=== PATIENT | male | born 1940 | race Caucasian/White ===

== ENCOUNTER 2020-02-11 09:40 | Inpatient (IN) | payer MEDICARE, SELFPAY ==
[2020-02-11] VITALS (11 sets, daily range): BP systolic 120–146; BP diastolic 57–66; PULSE 80–101; RESP 18–22; TEMP 37.4–39.6; O2SAT 92–98; BMI 20.9
--- NOTE | ~2020-02-11 | CT_ITS ---
EXAMINATION: CT chest abdomen pelvis w con EXAM DATE: 02/11/2020 14:01 INDICATION: Increasing falls, generalized weakness. Abdomen pelvis, right hip pain. Pulmonary nodule. TECHNIQUE: Spiral CT of the chest, abdomen and pelvis was performed following intravenous injection o f 100 mL Omnipaque 350. Axial, coronal and sagittal images were reviewed. Coronal maximum intensity pixel images of chest reviewed. The dose-length product (DLP) for this examination was 667.64 mGy-c m. The exposure was tailored according to patient size (auto mA exposure control), and iterative rec onstruction (ASIR) was used as additional dose reduction technique. Correlation is made to Chest x-ra y, right hip, pelvic x-ray same date. FINDINGS: CHEST: There is 1.4 cm right upper lobe nodule, suspicious for primary lung cancer. Consider CT-guid ed biopsy. Study is limited due to patient motion. There are no pleural or pericardial effusions. Tracheobronchial tree is patent. There is no mediastinal, hilar or axillary lymphadenopathy. The re is no pneumothorax. Heart normal in size. There is moderate coronary arterial calcification, a rterial sclerosis. ABDOMEN PELVIS: There is a hypodensity in the left lower lobe measuring 1.2 cm cm consistent with a c yst. The spleen, pancreas, and adrenal glands are unremarkable. The gallbladder is distended but ot herwise unremarkable. There is no biliary duct dilation. Portal and splenic veins are patent. Kidn eys enhance symmetrically. There is no hydronephrosis. The prostate is unremarkable. The bladder is unremarkable. There is no retroperitoneal or pelvic lymphadenopathy. There is extensive scatter ed arterial sclerotic disease. There is large amount of colonic stool, and fecal impaction with the rectal vault measuring 10.7 x 8. 4 cm. The stomach and small bowel are unremarkable. No free intraperitoneal gas. There are old b ilateral pelvic rami fractures superiorly and inferiorly, with nonunion. There is an old left iliac c rest fracture. No acute fracture line is identified but certainly reinjury to the rami fractures is p ossible. There is moderate chronic compression fracture of the L1 vertebral body. IMPRESSION: 1. Left upper lobe 1.4 cm nodule, suspicious for primary lung cancer. Consider CT-guided biopsy. 2. 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 N o acute fracture line identified. 3. Fecal impaction, constipation. 4. Chronic L1 compression fracture. Reviewed, dictated and finalized at location B. IMPRESSION: 1. Left upper lobe 1.4 cm nodule, suspicious for primary lung cancer. Consider CT-guided biopsy. 2. 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 No acute fracture line identified. 3. Fecal impaction, constipation. 4. Chronic L1 compression fracture.
--- NOTE | ~2020-02-11 | XR_ITS ---
XR abdomen/kub 1V 02/18/2020 15:27 Indication: History of ulcerative colitis. Abdominal pain. Procedure: Supine view of the abdomen Comparison: No prior studies for comparison. Findings: There is fecal impaction of the colon. There are extensive atherosclerotic changes with armin nts in the iliac arteries bilaterally. No significant small bowel dilation. Bowel content obscures ev aluation for renal stones. There are fracture deformities of the pubic rami and the acetabulum bilate rally, likely subacute/chronic. Impression: 1: Fecal impaction of the colon. Reviewed, dictated and finalized at location A. Impression: 1: Fecal impaction of the colon.
--- NOTE | ~2020-02-11 | XR_ITS ---
EXAMINATION: XR chest 1V portable DATE: 02/11/2020 11:01 INDICATION: Weakness. Falls. TECHNIQUE: A single frontal view of the chest was obtained. COMPARISON: None. FINDINGS: There is mild scarring at the lung apices. There is a 1.5 cm nodule at the junction of righ t mid and upper lung zones. No pleural effusion or pneumothorax. The heart size is normal. Right para tracheal widening is noted. IMPRESSION: 1. 1.5 cm nodule in right lung suspicious for primary bronchogenic carcinoma. I discussed this resul t with Mendoza Weaver on 02/11/20 at 11:07 AM. 2. Right paratracheal widening, which may be mediastinal lymphadenopathy or tortuous brachiocephalic vessels. Reviewed, dictated and finalized at location A. IMPRESSION: 1. 1.5 cm nodule in right lung suspicious for primary bronchogenic carcinoma. I discussed this result with Mendoza Weaver on 02/11/20 at 11:07 AM. 2. Right paratracheal widening, which may be mediastinal lymphadenopathy or tor tuous brachiocephalic vessels.
--- NOTE | ~2020-02-11 | XR_ITS ---
EXAMINATION: XR hip RT 2V w AP pelvis EXAM DATE: 02/11/2020 11:39 INDICATION: Initial encounter following injury, with pain of the pelvis, right hip. Limited range of motion. TECHNIQUE: Right hip frontal, crosstable lateral projections for interpretation. Frontal projection p samantha. There is no prior study for comparison. FINDINGS: Exam is limited from osteopenia, overlying bowel gas. There are no acute pelvic or right hi p fractures or dislocations identified. Probable old bilateral inferior rami fractures. There is no s ubcutaneous gas. Bilateral iliac stents. Extensive arterial sclerotic disease. There are no radiopa que foreign bodies. IMPRESSION: 1. Limited exam. No acute fracture suspected. 2. Probable old inferior rami fractures. Reviewed, dictated and finalized at location B.
--- NOTE | ~2020-02-11 | XR_ITS ---
EXAMINATION: XR chest 1V portable EXAM DATE: 02/17/2020 06:55 INDICATION: Pneumonia. TECHNIQUE: Portable AP frontal chest x-ray was obtained. Comparison is made to prior examination from 02/11/2020. FINDINGS: Interval development of moderate amount of bilateral perihilar distribution acute airspace disease, pneumonia and/or edema. There is a right upper lobe pulmonary nodule suspicious for primary bronchogenic lung cancer. No pneumothorax or pleural effusion. Cardiomediastinal silhouette is normal . There is aortic arteriosclerosis. There are bony degenerative changes. IMPRESSION: 1. Right upper lobe pulmonary nodule suspicious for primary lung cancer. 2. Development of moderate amount of perihilar edema and/or pneumonia. Reviewed, dictated and finalized at location B.
--- NOTE | ~2020-02-11 | XR_ITS ---
EXAMINATION: XR barium swallow modified DATE: 02/12/2020 16:13 INDICATION: Aspiration pneumonia. TECHNIQUE: Modified barium esophagram was performed by myself to administered fluoroscopy, in conjun ction with speech pathologist who administered barium in varying consistencies as per speech patholog ist documentation. This was recorded on tape. A single fluoroscopic spot image was recorded. The DAP for this procedure was 2.453 Gycm2. Fluoroscopy exposure time was 4.6 minutes. FINDINGS: Oral stage: Adequate function. Pharyngeal phase: Adequate function. Laryngeal penetration: Present. Aspiration: None. Laryngeal sensitivity: Absent. IMPRESSION: Laryngeal penetration without definite aspiration identified. Please refer to speech pat hologist findings and specific feeding recommendations. Reviewed, dictated and finalized at location A. IMPRESSION: Laryngeal penetration without definite aspiration identified. Plea se refer to speech pathologist findings and specific feeding recommendations.
--- NOTE | ~2020-02-11 | XR_ITS ---
EXAMINATION: XR chest 1V portable DATE: 02/18/2020 15:27 INDICATION: Aspiration pneumonia. TECHNIQUE: A single frontal view of the chest was obtained. COMPARISON: Chest single view 02/17/2020, chest CT 02/11/2020 FINDINGS: There is mild scarring at the lung apices. There are mild airspace opacities in right mid a nd lower lung zones and left lower lung zone. There is a nodule in right upper lobe. No pleural effus ion or pneumothorax. The heart size is normal. IMPRESSION: 1. Airspace opacities in right mid and lower lung zones and left lower lung zone with overall improve ment but with worsening at left lung base, consistent with atelectasis versus pneumonia. 2. Right upper lobe nodule suspicious for primary bronchogenic carcinoma. Reviewed, dictated and finalized at location B. IMPRESSION: 1. Airspace opacities in right mid and lower lung zones and left lower lung zon e with overall improvement but with worsening at left lung base, consistent wit h atelectasis versus pneumonia. 2. Right upper lobe nodule suspicious for primary bronchogenic carcinoma.
--- NOTE | ~2020-02-11 | CT_ITS ---
EXAMINATION: CT brain wo con DATE: 02/11/2020 11:00 INDICATION: Weakness. TECHNIQUE: Computed tomography (CT) of the head was performed without intravenous contrast. The mA wa s adjusted according to patient size. Iterative reconstruction technique was employed. The dose-lengt h product was 1362.00 mGy-cm. COMPARISON: None FINDINGS: There are scattered areas of low attenuation in the cerebral white matter. There is no intr acranial hemorrhage, acute infarction, or abnormal intracranial mass lesion. The ventricles are ronald l in size. There is mild mucosal thickening in the ethmoid sinuses. The orbits are normal. The mastoi d air cells are normal. IMPRESSION: 1. Moderate nonspecific cerebral white matter disease, which likely represents chronic small vessel i schemic disease. Reviewed, dictated and finalized at location A. IMPRESSION: 1. Moderate nonspecific cerebral white matter disease, which likely represents chronic small vessel ischemic disease.
--- NOTE | 2020-02-11 10:18 | ECG_ITS ---
Measurements Intervals [place] Rate: 94 P: NE: 0 QRS: -1 QRSD: 90 T: 54 QT: 331 QTc: 415 Interpretive Statements SINUS RHYTHM FREQUENT ATRIAL PREMATURE COMPLEXES NONSPECIFIC ST & T-WAVE ABNORMALITY- INF/HIGH LAT LEADS BASELINE ARTIFACT- I, II, III, AVR, AVL, AVF, V1-V6 ABNORMAL ECG Electronically Signed On 02-11-2020 12:01:57 CDT by Teo Herrera D.O.
[2020-02-11 11:15] LABS: Basophils Absolute Auto 0.1 K/mm3 (0.0-0.1); Basophils Percent Auto 0.7 % (0.2-1.2); Eosinophils Absolute Auto 0.1 K/mm3 (0-0.3); Eosinophils Percent Auto 1.4 % (0-4.4); Hematocrit 34.9 % (42.0-52.0); Hemoglobin 11.7 g/dL (14.0-18.0); Immature Granulocyte Absolute 0.09 K/mm3 (0.00-0.031); Immature Granulocyte Percent A 0.9 % (0-0.5); Lymphocytes Absolute Auto 0.87 K/mm3 (0.9-3.2); Lymphocytes Percent Auto 8.6 % (18.3-44.2); Mean Corpuscular HGB Conc 33.5 g/dl (32-36); Mean Corpuscular Hemoglobin 29.9 pg (26-34); Mean Corpuscular Volume 89.3 fl (80-100); Mean Platelet Volume 8.6 fl (7.4-10.4); Monocytes Absolute Auto 1.2 K/mm3 (0.1-0.6); Monocytes Percent Auto 11.7 % (2.6-8.5); Neutrophils Absolute Auto 7.7 K/mm3 (1.3-6.7); Neutrophils Percent Auto 76.7 % (45.5-73.1); Platelet Count Result 277 k/mm3 (150-375); Red Blood Count 3.91 M/mm3 (4.6-6.20); Red Cell Distribution Width 13.4 % (11.5-14.5); White Blood Count 10.1 K/mm3 (4.5-10.0)
[2020-02-11 11:24] LABS: Add Urine Microscopic? YES; Appearance Urine Clear (Clear); Bilirubin Urine Negative (Negative); Blood Urine Negative (Negative); Color Urine Yellow (Yellow); Glucose Urine UA 1+ mg/dL (Negative); Ketones Urine Negative (Negative); Leukocyte Esterase Ur Negative LEU/UL (Negative); Mucus Urine Rare /lpf; Nitrate Urine Negative (Negative); Protein Urine Negative (Negative); RBC Urine 0-2 /hpf (0-2); Specific Grav Ur 1.024 (1.001-1.035); WBC Urine 0-3 /hpf
--- NOTE | 2020-02-11 11:26 | ED.GENADULT ---
HPI - General Adult General Chief complaint: Weakness <Mendoza Weaver PA-C - Last Filed: 02/11/20 14:03> Stated complaint: increase in falls/gen weakness <Mendoza Weaver PA-C - Last Filed: 02/11/20 14:03> Time Seen by Provider: 02/11/20 10:32 <Mendoza Weaver PA-C - Last Filed: 02/11/20 14:03> Source: patient and family <Mendoza Weaver PA-C - Last Filed: 02/11/20 14:03> Mode of arrival: EMS <Mendoza Weaver PA-C - Last Filed: 02/11/20 14:03> Limitations: no limitations <Mendoza Weaver PA-C - Last Filed: 02/11/20 14:03> History of Present Illness HPI narrative: Patient is a 79-year-old male who presents from assisted living for several falls over the last week numbering up to 6 patient has had his head struck in a few of the falls notes that he may have had syncope and loss of consciousness associated with some of the falls patient on arrival to emergency department with his daughter is denying any current pain patient is currently being treated for colitis and has had multiple liquid stools per day also has a history of dehydration and urinary tract infections on arrival patient notes weakness and fatigue but denies pain denies rectal bleeding or melena <Mendoza Weaver PA-C - Last Filed: 02/11/20 14:03> Related Data Allergies/adverse reactions: Allergies Allergy/AdvReac Type Severity Reaction Status Date / Time No Known Allergies Allergy Verified 02/11/20 12:54 <Mendoza Weaver PA-C - Last Filed: 02/11/20 14:03> Review of Systems Review of Systems: All systems reviewed & are unremarkable except as noted in HPI and below <Mendoza Weaver PA-C - Last Filed: 02/11/20 14:03> [facility] Past Medical History Medical History: Medical History Colitis Peripheral arterial disease Peripheral vascular disease <Mendoza Weaver PA-C - Last Filed: 02/11/20 14:03> Social History Social History: Social History (Updated 02/11/20 @ 11:29 by Mendoza Figueroa Young, PA-C) Smoking status: Former smoker <Mendoza Weaver PA-C - Last Filed: 02/11/20 14:03> Exam Narrative: Exam Narrative: GENERAL: Ill-appearing, well-nourished, and in no acute distress. HEAD: Normocephalic, atraumatic. EYES: PERRLA and EOMI. ENT: Nares clear, no rhinorrhea or epistaxis. Mucous membranes dry. Oropharynx without tonsillar hypertrophy exudate or other lesions. NECK: Supple. No adenopathy or masses. No carotid bruits or JVD CHEST: Clear to auscultation. No respiratory distress. No wheezes rales or rhonchi HEART: Regular rate and rhythm. No murmur heard. Normal peripheral pulses. ABDOMEN: Soft, nontender, nondistended, normal active bowel sounds. 2 firm areas 1 on each side of the lower abdomen consistent with heparin injection EXTREMITIES: Normal range of motion. No edema. Extremities palpated nontender to include the cervical thoracic and lumbar spine SKIN: Warm, dry, no rash. NEURO: No focal deficits. Alert and oriented person and reason for being in the emergency department, normal speech, neurovascularly intact, capillary refill less than 2 seconds. PSYCH: Normal mood and affect. <Mendoza Weaver PA-C - Last Filed: 02/11/20 14:03> Course GEOSPATIAL INFORMATION SCIENTIST/PA Physician Supervision Attestation for Mendoza Weaver at 1350. [id number] with the patient and his daughter for 15 minutes. The daughter is the patient's POA. The patient does not wake up or talk to me. His daughter says that yesterday they were able to make a [id number] telephone call with the primary care physician. She thought he was looking sickly. He lives at assisted living but has frequent falls. He did not have any particular complaints. He has a known lung mass which is supposed to be biopsied, but with COVID right they were unable to set that up. He had a heart attack some 30 years ago. She has a non-STEMI on his lab work. His potassium is low and he
[2020-02-11 11:32] LABS: Creatine Kinase 106 U/L (55-170)
[2020-02-11 11:50] LABS: Troponin I 0.036 ng/mL (0.000-0.034)
[2020-02-11 12:23] LABS: Lipase < 10 U/L (23-300)
[2020-02-11 12:37] LABS: Alanine Aminotransferase 20 U/L (4-50); Albumin Level 3.6 g/dL (3.5-5.1); Alkaline Phosphatase 74 U/L (38-126); Anion Gap 10 mmol/L (8-16); Aspartate Amino Transferase 28 U/L (17-59); Bilirubin,Total 0.8 mg/dL (0.2-1.3); Blood Urea Nitrogen 23 mg/dL (9-20); Calcium 8.3 mg/dL (8.4-10.2); Carbon Dioxide 29 mmol/L (22-30); Chloride 92 mmol/L (98-107); Estimated CRCL calculation 75 ml/min; Estimated Glomerular Filt Rate > 60; Glucose 61 mg/dL (75-110); Potassium 2.7 mmol/L (3.4-5.0); Sodium 131 mmol/L (137-145)
[2020-02-11 13:15] LABS: Magnesium 1.9 mg/dL (1.6-2.3); Phosphorus 2.9 mg/dL (2.5-4.5)
[2020-02-11 13:28] LABS: Troponin I 0.037 ng/mL (0.000-0.034)
--- NOTE | 2020-02-11 14:04 | PC.NURSE ---
Pt in CT scan via stretcher.
[2020-02-11] MEDS: SODIUM CHLORIDE 0.9% IV 1,000 ML 999 ML IV CONT (14:41)
--- NOTE | 2020-02-11 14:45 | PM.IMHP ---
H&P: HPI History of Present Illness Date/Time: 02/11/20 14:45 Chief complaint: ELEVATED TROPONIN,HYPOKALEMIA,FREQUENT FALLS Narrative: Mikey Yoo is a 79 year old male S from [facility]. The patient has become increasingly more confused. The daughter Jamila is at the bedside answering questions for the patient. 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 The patient does not have a history of dementia and has not been confused like this according to the daughter. The patient is reaching for things in the air. The patient has had several falls over the last week approximately 6 times. He did spike dry case had a few times. And he has had a syncope and loss of consciousness the. The patient is not complaining of any pain at this time. The patient has microscopic ulcerative colitis and has been seeing a specialist for this. He has several stools and has not been able to control his diarrhea. He has had multiple EGDs and colonoscopies. The patient is confused and weak. No rectal bleeding was noted at this time. Patient had a low-grade fever of 99.3. Patient has a known lung nodule. However the daughter did not want to follow-up on that at this point because he had to iliac stents and was placed on Plavix it would have to be off Plavix several days before they could get a lung biopsy. We had a long discussion about this in the daughter stated that she really does not want to get a biopsy of this as they will not want any further treatment. The daughter Jamila is the durable power health care attorney for healthcare. Patient's troponins were slightly elevated 0.036 and 0.037. Could possibly be from his falls. He isn't having complaints of chest pain. His potassium was found to be 2.7 and he is getting replacement. IV fluids were started. His sodium is 131. Chest x-ray was read as 1.5 cm nodule in the right lung suspicious for primary bronchogenic carcinoma her the daughter is aware and this has been there for quite some time and the power health care attorney does not want it worked up at at this time. He had a hip and pelvis x-ray which was read as limited exam to probable old inferior rami fractures of which the power health care attorney and stated that the patient did have pelvic fractures in the past. Fecal impaction coccygeal by from chronic L1 compression fracture. He was given IV fluids potassium and IV Tylenol in the emergency room. Patient remains confused. I spent approximately 1 hour with this patient and his power health care attorney. Date of service is 02/11/2020 Review of Systems Review of Systems: All systems reviewed & are unremarkable except as noted in HPI and below Constitutional: Constitutional: Reports as per HPI and Reports no additional constitutional complaints Eyes: Eyes: Reports as per HPI and Reports no additional eye complaints ENT: Reports system reviewed and no additional complaints, except as documented and Reports Normal hearing present Cardiovascular: Cardiovascular: Reports no additional cardiovascular complaints Respiratory: Respiratory: Reports no additional respiratory complaints and Reports no additional respiratory complaints Gastrointestinal: Gastrointestinal: Reports as per HPI and Reports no additional gastrointestinal complaints Musculoskeletal: Musculoskeletal: Reports no additional musculoskeletal complaints Integumentary/Breasts: Skin/Breast: Reports system reviewed and no additional complaints, except as docu and Reports as per HPI Neurologic: Reports system reviewed and no additional complaints, except as documented, Reports as per HPI and Reports Normal hearing present Psychiatric: Psychiatric: Reports no additional psychiatric complaints and Reports as per HPI Endocrine: Endocrine: Reports no additional endocrine complaints Hematologic/Lymphatic: Hematologic/Lymphatic: Reports no additional hematologic/lymphatic complaints Allergic/Immunologic: Allergic/Immunologic: Reports no additional allergic/immunologic complaints [facility]
[2020-02-11 15:06] LABS: Lactic Acid Reflex 1.4 mmol/L (0.7-2.1)
--- NOTE | 2020-02-11 16:31 | ADMGEN ---
This patient, Mikey Yoo, was admitted to Intensive Care Unit-2. Patient/family oriented to hospital policies and general routines including ID bracelet, bed and alarms, visiting hours, pain management, procedures, bathroom and other care routines, personal items, smoking policy, room service/diet, and visiting hours. Valuables list has been completed. Information on how to activate the Rapid Response Team has been discussed. Patient/Family are encouraged to report perceived risks to care and to ask questions if they do not understand what they are told or what they should do.
[2020-02-11 18:51] LABS: Troponin I 0.048 ng/mL (0.000-0.034)
[2020-02-11] MEDS: ACETAMINOPHEN 325 MG TABLET 650 MG PO (21:32)
--- NOTE | 2020-02-11 22:30 | PC.NURSE ---
Patient found to be incontinent of bowel and urine. Upon cleaning patient, he became combative and grabbed at my gown and face shield. Nela Ortega notified and new orders obtained
[2020-02-11] MEDS: HALOPERIDOL LACTATE 5 MG/ML VIAL IM (22:40)
[2020-02-11 22:48] LABS: Glucose Point of Care 126 (65-105)
[2020-02-11 22:48] LABS: Glucose Point of Care 162 (65-105)
[2020-02-11 23:24] LABS: SARS-CoV-2 RNA PCR Negative
[2020-02-12] VITALS (19 sets, daily range): BP systolic 104–143; BP diastolic 36–77; PULSE 83–109; RESP 16–24; TEMP 36.8–39.2; O2SAT 91–100
[2020-02-12 05:07] LABS: Basophils Percent Auto 0.4 % (0.2-1.2); Eosinophils Absolute Auto 0.2 K/mm3 (0-0.3); Eosinophils Percent Auto 1.9 % (0-4.4); Hematocrit 34.1 % (42.0-52.0); Hemoglobin 11.5 g/dL (14.0-18.0); Immature Granulocyte Absolute 0.07 K/mm3 (0.00-0.031); Immature Granulocyte Percent A 0.8 % (0-0.5); Lymphocytes Absolute Auto 0.47 K/mm3 (0.9-3.2); Mean Corpuscular HGB Conc 33.7 g/dl (32-36); Mean Corpuscular Hemoglobin 30.2 pg (26-34); Mean Corpuscular Volume 89.5 fl (80-100); Mean Platelet Volume 8.9 fl (7.4-10.4); Monocytes Absolute Auto 0.6 K/mm3 (0.1-0.6); Monocytes Percent Auto 6.4 % (2.6-8.5); Neutrophils Percent Auto 85.5 % (45.5-73.1); Platelet Count Result 241 k/mm3 (150-375); Red Blood Count 3.81 M/mm3 (4.6-6.20); Red Cell Distribution Width 13.4 % (11.5-14.5); White Blood Count 9.3 K/mm3 (4.5-10.0)
[2020-02-12 05:13] LABS: Alanine Aminotransferase 21 U/L (4-50); Albumin Level 3.1 g/dL (3.5-5.1); Alkaline Phosphatase 59 U/L (38-126); Anion Gap 5 mmol/L (8-16); Aspartate Amino Transferase 37 U/L (17-59); Bilirubin,Total 0.9 mg/dL (0.2-1.3); Blood Urea Nitrogen 20 mg/dL (9-20); Calcium 7.7 mg/dL (8.4-10.2); Carbon Dioxide 31 mmol/L (22-30); Chloride 93 mmol/L (98-107); Estimated CRCL calculation 86 ml/min; Estimated Glomerular Filt Rate > 60; Glucose 99 mg/dL (75-110); Sodium 129 mmol/L (137-145)
--- NOTE | 2020-02-12 06:31 | PC.NURSE ---
This patient, Mikey Yoo, was transferred to [facility] on 02/12/20 at 0631. Personal belongings sent with patient. Belongings list checked and signed with receiving Aminta GORE. Report given to Aminta GORE. Appropriate documentation sent with patient.
--- NOTE | 2020-02-12 07:09 | PC.NURSE ---
recieved pt from Leyla Dixon pt transfered approx 0630 02/12/20
[2020-02-12 08:22] LABS: Glucose Point of Care 106 (65-105)
[2020-02-12 12:12] LABS: Potassium 2.9 mmol/L (3.4-5.0)
--- NOTE | 2020-02-12 13:07 | PM.IMPN ---
Progress Note: A&P Assessment and Plan (1) Altered mental status: Code(s): R41.82 - Altered mental status, unspecified Status: Acute Assessment and Plan: we did a CT of the brain which did not show any stroke or anything abnormal except for some chronic moderate nonspecific cerebral white matter disease. Pt has had CT chest abdo and pelvis results are noted. (2) Elevated troponin: Code(s): R79.89 - Other specified abnormal findings of blood chemistry Status: Acute Assessment and Plan: Could be related to the falls there are low in level. This is not cardiac in nature. (3) Diabetes: Code(s): E11.9 - Type 2 diabetes mellitus without complications Status: Chronic Assessment and Plan: SSI We can check A1c. (4) Chronic ulcerative colitis: Code(s): K51.90 - Ulcerative colitis, unspecified, without complications Status: Chronic Assessment and Plan: Typically the patient has chronic diarrhea. (5) Urinary retention: Code(s): R33.9 - Retention of urine, unspecified Status: Acute Assessment and Plan: A Painter catheter has been placed. (6) Constipation: Code(s): K59.00 - Constipation, unspecified Status: Acute Assessment and Plan: Soapsuds enema has been ordered. (7) Lung mass: Code(s): R91.8 - Other nonspecific abnormal finding of lung field Status: Chronic Assessment and Plan: The patient has been made aware previously that he has a lung mass however he chose to have his iliac stents placed 1st and is on Plavix and would probably need to be off of his Plavix for couple days prior to having a biopsy or bronchoscopy. Pt is DNR status. Pt is running slight fever, COVID negative awaiting BC and UC full reports meanwhile will start IV ABX Subjective Date/time seen: 02/12/20 13:07 Interval history: 79 year old male S from [facility]. The patient has become increasingly more confused. Pt issues in the past is mainly diarrhea, pt does have a history of UC. Pt has been having more falls and has been more confused since in the past one week. Pt is running a fever, no cough. Has not been able to urinate and has been dizzy. Pt is negative for the covid virus. PT has had ct head, chest, abdo and pelvis. UA is negative pt has a painter catheter in situ. ? possible lung cancer. Na is low and potassium is low. Review of Systems Review of Systems: All systems reviewed & are unremarkable except as noted in HPI and below Exam Const: General: cooperative, no acute distress, well developed, alert, awake, Physically active and tired appearing Nutritional Appearance: average body habitus and well nourished Orientation/consciousness: oriented to person Limitations: no limitations Other: Pt is confused x3 Chest: Chest palpation & inspection: normal inspection of the chest Resp: Effort & Inspection: normal respiratory effort Auscultation: clear to auscultation bilaterally Percussion: percussion normal Cardio: Palpation: normal PMI Rate: regular rate Rhythm: regular rhythm Heart sounds: S1 normal heart sound present and S2 normal heart sound present Peripheral pulses: Peripheral pulses 2+ throughout Back/Spine/Pelvis: Back: no CVA tenderness Cervical Spine: cervical ROM normal Thoracic/Lumbar Spine: thoracic and lumbar spine normal to inspection Pelvis: no pain with anterior-posterior compression Skin: General skin exam: normal color Lesions: no lesions Rashes: no rashes Trauma: no lacerations or abrasions Wounds: no wounds Hair: normal Nails: normal Neuro: General: oriented to person Cranial nerves: Yes Equal, round and reactive pupils present and Yes hard of hearing Cognition (Neuro): normal cognition Speech: normal speech Sensory Exam: normal sensation Extrem: General: normal to inspection Right upper extremity: normal to inspection Left upper extremity: normal to
[2020-02-12 13:08] LABS: Glucose Point of Care 197 (65-105)
[2020-02-12 17:05] LABS: Glucose Point of Care 199 (65-105)
[2020-02-12] MEDS: KCL 20MEQ/0.9% SOD CHL 1,000 ML 100 ML IV CONT (18:21)
[2020-02-12 20:53] LABS: Glucose Point of Care 242 (65-105)
[2020-02-12] MEDS: ATORVASTATIN 40 MG TABLET BY MOUTH (22:33)
[2020-02-13] VITALS (11 sets, daily range): BP systolic 130–154; BP diastolic 59–72; PULSE 82–96; RESP 14–20; TEMP 36.2–36.8; O2SAT 91–97; BMI 21.1
[2020-02-13 05:31] LABS: Hematocrit 33.6 % (42.0-52.0); Hemoglobin 11.3 g/dL (14.0-18.0); Mean Corpuscular HGB Conc 33.6 g/dl (32-36); Mean Corpuscular Hemoglobin 29.4 pg (26-34); Mean Corpuscular Volume 87.5 fl (80-100); Mean Platelet Volume 9.1 fl (7.4-10.4); Platelet Count Result 220 k/mm3 (150-375); Red Blood Count 3.84 M/mm3 (4.6-6.20); Red Cell Distribution Width 13.4 % (11.5-14.5); White Blood Count 6.4 K/mm3 (4.5-10.0)
[2020-02-13 05:41] LABS: Anion Gap 9 mmol/L (8-16); Blood Urea Nitrogen 20 mg/dL (9-20); Calcium 7.4 mg/dL (8.4-10.2); Carbon Dioxide 26 mmol/L (22-30); Chloride 94 mmol/L (98-107); Estimated CRCL calculation 86 ml/min; Estimated Glomerular Filt Rate > 60; Glucose 238 mg/dL (75-110); Sodium 129 mmol/L (137-145)
[2020-02-13] MEDS: KCL 20MEQ/0.9% SOD CHL 1,000 ML 100 ML IV CONT ×2 (05:52→17:13)
[2020-02-13 07:56] LABS: Glucose Point of Care 272 (65-105)
[2020-02-13] MEDS: ASPIRIN 81 MG CHEWABLE TABLET PO (10:20)
[2020-02-13] MEDS: MULTIVITAMINS /C LUTEIN (CENTRUM SILVER) TABLET *BKC 1 TAB BY MOUTH (10:20)
[2020-02-13] MEDS: BUDESONIDE 3 MG CAP.SR.24H BY MOUTH ×3 (10:20→17:09)
[2020-02-13] MEDS: CHLORTHALIDONE 12.5 MG TAB BY MOUTH (10:20)
[2020-02-13] MEDS: INSULIN ASPART (*BKC) 100 UNITS/ML SUB-Q ×2 (10:21→12:32)
[2020-02-13 11:56] LABS: Glucose Point of Care 256 (65-105)
--- NOTE | 2020-02-13 12:28 | PM.IMPN ---
Progress Note: A&P Assessment and Plan (1) Altered mental status: Code(s): R41.82 - Altered mental status, unspecified Status: Resolved Assessment and Plan: Pt is running slight fever, COVID negative awaiting BC and UC full reports meanwhile will start IV zosyn and vancomycin. HIgh risk of aspiration pneumonia with a lung mass. 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 Pt has had CT chest abdo and pelvis results are noted. Pt on nectar thickened liquids. UC is negative awaiting BC. RPT swallow and DC soon. (2) Elevated troponin: Code(s): R79.89 - Other specified abnormal findings of blood chemistry Status: Acute Assessment and Plan: Could be related to the falls there are low in level. This is not cardiac in nature. (3) Diabetes: Code(s): E11.9 - Type 2 diabetes mellitus without complications Status: Chronic Assessment and Plan: SSI We can check A1c. (4) Chronic ulcerative colitis: Code(s): K51.90 - Ulcerative colitis, unspecified, without complications Status: Chronic Assessment and Plan: Typically the patient has chronic diarrhea. (5) Urinary retention: Code(s): R33.9 - Retention of urine, unspecified Status: Acute Assessment and Plan: A Painter catheter has been placed. (6) Constipation: Code(s): K59.00 - Constipation, unspecified Status: Acute Assessment and Plan: Soapsuds enema has been ordered. (7) Lung mass: Code(s): R91.8 - Other nonspecific abnormal finding of lung field Status: Chronic Assessment and Plan: The patient has been made aware previously that he has a lung mass however he chose to have his iliac stents placed 1st and is on Plavix and would probably need to be off of his Plavix for couple days prior to having a biopsy or bronchoscopy. Pt is DNR status. Subjective Date/time seen: 02/13/20 12:28 Interval history: 79 [address] old male from [facility]. The patient has become increasingly more confused. Pt issues in the past is mainly diarrhea, pt does have a history of UC. Pt has been having more falls and has been more confused one week. Pt is running a fever, no cough. Has not been able to urinate and has been dizzy. Pt is negative for the covid virus. PT has had ct head, chest, abdo and pelvis. UA is negative pt has a painter catheter in situ. ? possible lung cancer. Na is low and potassium is low. Pt is doing much better today after starting IV abx. Medical stable to transfer out of IMU. Review of Systems Review of Systems: All systems reviewed & are unremarkable except as noted in HPI and below ROS unobtainable: Yes other (Not dizzy not confused ) Respiratory: Respiratory: Reports chest congestion, Denies cough, Denies excessive phlegm production, Denies dyspnea and Denies wheezing Exam Const: General: no acute distress, alert and awake Orientation/consciousness: oriented to person Limitations: no limitations HENMT: Head: normal to inspection Neck: Neck: normal visual inspection, full ROM, no lymphadenopathy, trachea midline and supple Thyroid: thyroid normal Carotids: normal carotid upstroke Lymphatic: no lymphadenopathy noted Chest: Chest palpation & inspection: normal inspection of the chest Resp: Effort & Inspection: normal respiratory effort Auscultation: clear to auscultation bilaterally Percussion: percussion normal Cardio: Palpation: normal PMI Rate: regular rate Rhythm: regular rhythm Heart sounds: S1 normal heart sound present and S2 normal heart sound present GI: Auscultation: normal bowel sounds Skin: Lesions: no lesions Rashes: no rashes Trauma: no lacerations or abrasions Wounds: no wounds Hair: normal Nails: normal Neuro: Cognition (Neuro): normal cognition Speech: normal speech Sensory
[2020-02-13] MEDS: KCL 20 MEQ/SW 100 ML 100 ML 50 MEQ IVPB (12:31)
--- NOTE | 2020-02-13 13:20 | PC.NURSE ---
This patient, Mikey Yoo, was transferred to [[id number]] on 02/13/20 at 1320. Personal belongings sent with patient. Belongings list checked and signed with receiving [ ]. Report given to [IRINA GORE]. Appropriate documentation sent with patient.
[2020-02-13 16:56] LABS: Glucose Point of Care 175 (65-105)
[2020-02-13] MEDS: FAMOTIDINE 20 MG TABLET 40 MG BY MOUTH (19:57)
[2020-02-13] MEDS: ATORVASTATIN 40 MG TABLET BY MOUTH (19:57)
[2020-02-13 22:44] LABS: Glucose Point of Care 341 (65-105)
[2020-02-13 22:46] LABS: Glucose Point of Care 413 (65-105)
[2020-02-13] MEDS: INSULIN ASPART (*BKC) 100 UNITS/ML 8 UNITS SUB-Q (23:00)
[2020-02-13] MEDS: INSULIN GLARGINE (*BKC) 100 UNITS/ML 18 UNITS SUB-Q (23:00)
[2020-02-14] VITALS: BP 140/69; PULSE 84; RESP 16; TEMP 36.8; O2SAT 98
[2020-02-14 01:05] LABS: Glucose Point of Care 352 (65-105)
[2020-02-14 01:45] LABS: Vancomycin Trough 11.8 ug/mL (10.0-20.0)
[2020-02-14 03:56] LABS: Glucose Point of Care 298 (65-105)
[2020-02-14] MEDS: KCL 20MEQ/0.9% SOD CHL 1,000 ML 100 ML IV CONT (04:21)
[2020-02-14 05:32] VITALS: BP 150/76; PULSE 76; RESP 16; TEMP 36.2; O2SAT 96
[2020-02-14 07:49] LABS: Glucose Point of Care 210 (65-105)
[2020-02-14] MEDS: INSULIN ASPART (*BKC) 100 UNITS/ML SUB-Q (08:59)
[2020-02-14] MEDS: BUDESONIDE 3 MG CAP.SR.24H BY MOUTH (09:01)
[2020-02-14] MEDS: CHLORTHALIDONE 12.5 MG TAB BY MOUTH (09:01)
[2020-02-14] MEDS: MULTIVITAMINS /C LUTEIN (CENTRUM SILVER) TABLET *BKC 1 TAB BY MOUTH (09:01)
[2020-02-14] MEDS: ASPIRIN 81 MG CHEWABLE TABLET PO (09:01)
--- NOTE | 2020-02-14 11:56 | PM.IMPN ---
Progress Note: A&P Assessment and Plan (1) Altered mental status: Code(s): R41.82 - Altered mental status, unspecified Status: Resolved Assessment and Plan: Pt is running slight fever, COVID negative awaiting BC full reports meanwhile will start IV zosyn and vancomycin. High risk of aspiration pneumonia with a lung mass. 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 Pt has had CT chest abdo and pelvis results are noted. Pt on nectar thickened liquids and Minced and moist diet. UC is negative awaiting BC. Pt can advance to regular food gradually as per speech therapist. (2) Elevated troponin: Code(s): R79.89 - Other specified abnormal findings of blood chemistry Status: Acute Assessment and Plan: Could be related to the falls there are low in level. This is not cardiac in nature. (3) Diabetes: Code(s): E11.9 - Type 2 diabetes mellitus without complications Status: Chronic Assessment and Plan: SSI We can check A1c. (4) Chronic ulcerative colitis: Code(s): K51.90 - Ulcerative colitis, unspecified, without complications Status: Chronic Assessment and Plan: Typically the patient has chronic diarrhea. (5) Urinary retention: Code(s): R33.9 - Retention of urine, unspecified Status: Acute Assessment and Plan: A Painter catheter has been placed. Will remove today UC is negative. (6) Constipation: Code(s): K59.00 - Constipation, unspecified Status: Acute Assessment and Plan: Soapsuds enema has been ordered. (7) Lung mass: Code(s): R91.8 - Other nonspecific abnormal finding of lung field Status: Chronic Assessment and Plan: The patient has been made aware previously that he has a lung mass however he chose to have his iliac stents placed 1st and is on Plavix. Pt can not had biopsy or bronchoscopy yet. Pt is DNR status. (8) Aspiration into lower respiratory tract: Code(s): T17.800A - Unspecified foreign body in other parts of respiratory tract causing asphyxiation, initial encounter Status: Acute Assessment and Plan: Pt treated for possible aspiration pneumonia doing well on IV abx on discharge will need follow up with pulmology and biopsy or bronchoscopy once infection is cleared. (9) Acute hypokalemia: Code(s): E87.6 - Hypokalemia Status: Acute Assessment and Plan: Pt had potassium rider pt to have potassium supplements today eating better today 80% as per nurse Subjective Date/time seen: 02/14/20 11:56 Interval history: 79 year old male from [facility]. The patient was confused on admission. Pt issues in the past is mainly diarrhea, pt does have a history of UC. Pt has been having more falls and has been more confused one week. Pt is running a fever, no cough. Has not been able to urinate and has been dizzy. Pt is negative for the covid virus. PT has had ct head, chest, abdo and pelvis. UA is negative pt has a painter catheter in situ. CT chest shows? possible lung cancer. Na is low and potassium is low. Pt is doing much better today after starting IV abx. Holding conversation smiling today. Review of Systems Review of Systems: All systems reviewed & are unremarkable except as noted in HPI and below Exam Const: General: no acute distress, alert and awake Nutritional Appearance: average body habitus and well nourished Orientation/consciousness: oriented to person Limitations: no limitations Other: Disoriented x2 history of dementia Chest: Chest palpation & inspection: normal inspection of the chest Resp: Effort & Inspection: normal respiratory effort Auscultation: clear to auscultation bilaterally Percussion: percussion normal Cardio: Palpation: normal PMI Rate: regular rate Rhythm: regular rhythm Heart s
[2020-02-14 12:02] LABS: Glucose Point of Care 148 (65-105)
[2020-02-14] MEDS: MESALAMINE 400 MG DELAYED RELEASE CAPSULE 800 MG PO ×2 (13:14→16:43)
--- NOTE | 2020-02-14 14:18 | PCOTNOTE ---
Attempted OT treatment, Pt reports I just want to sleep Will attempt at later time. RN notified
[2020-02-14 14:32] VITALS: BP 145/79; PULSE 79; RESP 16; TEMP 36.6; O2SAT 96
[2020-02-14 16:40] LABS: Glucose Point of Care 120 (65-105)
[2020-02-14] MEDS: POTASSIUM CHLORIDE 20 MEQ PACKET (FOR LIQUID) PO (16:43)
[2020-02-14] MEDS: FAMOTIDINE 20 MG TABLET 40 MG BY MOUTH (20:38)
[2020-02-14] MEDS: ATORVASTATIN 40 MG TABLET BY MOUTH (20:40)
[2020-02-14] MEDS: INSULIN GLARGINE (*BKC) 100 UNITS/ML 18 UNITS SUB-Q (20:41)
[2020-02-14 21:02] LABS: Glucose Point of Care 204 (65-105)
[2020-02-14 21:21] VITALS: BP 150/70; PULSE 60; RESP 20; TEMP 36.1; O2SAT 92
[2020-02-15 06:00] VITALS: BP 139/72; PULSE 77; RESP 20; TEMP 36.6; O2SAT 96
[2020-02-15 06:31] LABS: Hematocrit 31.6 % (42.0-52.0); Hemoglobin 10.7 g/dL (14.0-18.0); Mean Corpuscular HGB Conc 33.9 g/dl (32-36); Mean Corpuscular Hemoglobin 29.6 pg (26-34); Mean Corpuscular Volume 87.3 fl (80-100); Mean Platelet Volume 9.2 fl (7.4-10.4); Platelet Count Result 243 k/mm3 (150-375); Red Blood Count 3.62 M/mm3 (4.6-6.20); Red Cell Distribution Width 13.4 % (11.5-14.5); White Blood Count 8.2 K/mm3 (4.5-10.0)
[2020-02-15 07:09] LABS: Anion Gap 6 mmol/L (8-16); Blood Urea Nitrogen 16 mg/dL (9-20); Calcium 7.7 mg/dL (8.4-10.2); Carbon Dioxide 28 mmol/L (22-30); Chloride 98 mmol/L (98-107); Estimated CRCL calculation 106 ml/min; Estimated Glomerular Filt Rate > 60; Glucose 108 mg/dL (75-110); Potassium 2.8 mmol/L (3.4-5.0); Sodium 132 mmol/L (137-145)
[2020-02-15 08:00] VITALS: PULSE 80; RESP 16; O2SAT 98
[2020-02-15] MEDS: POTASSIUM CHLORIDE 20 MEQ PACKET (FOR LIQUID) 40 MEQ PO ×3 (08:05→16:37)
[2020-02-15] MEDS: MESALAMINE 400 MG DELAYED RELEASE CAPSULE 800 MG PO ×3 (08:16→16:37)
[2020-02-15] MEDS: ASPIRIN 81 MG CHEWABLE TABLET PO (08:17)
[2020-02-15] MEDS: MULTIVITAMINS /C LUTEIN (CENTRUM SILVER) TABLET *BKC 1 TAB BY MOUTH (08:17)
[2020-02-15 09:36] LABS: Glucose Point of Care 54 (65-105)
[2020-02-15 09:36] LABS: Glucose Point of Care 62 (65-105)
[2020-02-15 09:36] LABS: Glucose Point of Care 58 (65-105)
[2020-02-15 09:36] LABS: Glucose Point of Care 64 (65-105)
[2020-02-15 09:36] LABS: Glucose Point of Care 86 (65-105)
--- NOTE | 2020-02-15 11:36 | P.PNIM_ITS ---
Progress Note: A&P Assessment and Plan (1) Aspiration into lower respiratory tract: Qualifiers: Encounter type: subsequent encounter Qualified Code(s): T17.800D - Unspecified foreign body in other parts of respiratory tract causing asph yxiation, subsequent encounter Code(s): T17.800A - Unspecified foreign body in other parts of respiratory tract causing asphyxiation, initial encounter Status: Acute Assessment and Plan: * Continue Zosyn * 02/14 stop vancomycin * Continue PT/OT * Continue soft, bite-sized foods with thickened liquids (2) Altered mental status: Qualifiers: Altered mental status type: disorientation Qualified Code(s): R41.0 - Disorientation, unspecified Code(s): R41.82 - Altered mental status, unspecified Status: Resolved Assessment and Plan: * Now afebrile * Suspected due to metabolic encephalopathy realted to aspiration * Seems to be improving, but continues to wax and wane (3) Elevated troponin: Code(s): R79.89 - Other specified abnormal findings of blood chemistry Status: Acute Assessment and Plan: * Likely related to the falls, not cardiac (4) Diabetes: Qualifiers: Diabetes mellitus type: type 2 Diabetes mellitus custodial insulin use: with custodial use Diabetes mellitus complication status: with kidney complications Diabetes mellitus complication detail: with chronic kidney disease Chronic kidney disease stage: stage 3 (moderate) Qualified Code(s): E11.22 - Type 2 diabetes mellitus with diabetic chronic kidney disease; N18.3 - Chronic kidney disease, stage 3 (moderate); Z79.4 - half-way (current) use of insulin Code(s): E11.9 - Type 2 diabetes mellitus without complications Status: Chronic Assessment and Plan: * Continue SSI (5) Chronic ulcerative colitis: Qualifiers: Ulcerative colitis location: unspecified ulcerative colitis location Digestive disease complication type: without complication Qualified Code(s): K51.90 - Ulcerative colitis, unspecified, without complications Code(s): K51.90 - Ulcerative colitis, unspecified, without complications Status: Chronic Assessment and Plan: * Stable (6) Urinary retention: Code(s): R33.9 - Retention of urine, unspecified Status: Acute Assessment and Plan: * Resolved (7) Constipation: Qualifiers: Constipation type: unspecified constipation type Qualified Code(s): K59.00 - Constipation, unspecified Code(s): K59.00 - Constipation, unspecified Status: Acute Assessment and Plan: * Dueto fecal impaction * Resolved (8) Lung mass: Code(s): R91.8 - Other nonspecific abnormal finding of lung field Status: Chronic Assessment and Plan: * 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 Denied pain. Less confused. Daughter at bedside. No change in chronic diarrhea. No bleeding. Review of Systems Review of Systems: All systems reviewed & are unremarkable except as noted in HPI and below Exam Narrative: Exam Narrative: HEENT: EOMI, PERRL, sclerae nonicteric, pharyngeal mucosa pink and intact
--- NOTE | 2020-02-15 11:36 | PM.IMPN ---
Progress Note: A&P Assessment and Plan (1) Aspiration into lower respiratory tract: Qualifiers: Encounter type: subsequent encounter Qualified Code(s): T17.800D - Unspecified foreign body in other parts of respiratory tract causing asphyxiation, subsequent encounter Code(s): T17.800A - Unspecified foreign body in other parts of respiratory tract causing asphyxiation, initial encounter Status: Acute Assessment and Plan: Continue Zosyn 02/14 stop vancomycin Continue PT/OT Continue soft, bite-sized foods with thickened liquids (2) Altered mental status: Qualifiers: Altered mental status type: disorientation Qualified Code(s): R41.0 - Disorientation, unspecified Code(s): R41.82 - Altered mental status, unspecified Status: Resolved Assessment and Plan: Now afebrile Suspected due to metabolic encephalopathy realted to aspiration Seems to be improving, but continues to wax and wane (3) Elevated troponin: Code(s): R79.89 - Other specified abnormal findings of blood chemistry Status: Acute Assessment and Plan: Likely related to the falls, not cardiac (4) Diabetes: Qualifiers: Diabetes mellitus type: type 2 Diabetes mellitus senior care insulin use: with termite treater use Diabetes mellitus complication status: with kidney complications Diabetes mellitus complication detail: with chronic kidney disease Chronic kidney disease stage: stage 3 (moderate) Qualified Code(s): E11.22 - Type 2 diabetes mellitus with diabetic chronic kidney disease; N18.3 - Chronic kidney disease, stage 3 (moderate); Z79.4 - termite treater (current) use of insulin Code(s): E11.9 - Type 2 diabetes mellitus without complications Status: Chronic Assessment and Plan: Continue SSI (5) Chronic ulcerative colitis: Qualifiers: Ulcerative colitis location: unspecified ulcerative colitis location Digestive disease complication type: without complication Qualified Code(s): K51.90 - Ulcerative colitis, unspecified, without complications Code(s): K51.90 - Ulcerative colitis, unspecified, without complications Status: Chronic Assessment and Plan: Stable (6) Urinary retention: Code(s): R33.9 - Retention of urine, unspecified Status: Acute Assessment and Plan: Resolved (7) Constipation: Qualifiers: Constipation type: unspecified constipation type Qualified Code(s): K59.00 - Constipation, unspecified Code(s): K59.00 - Constipation, unspecified Status: Acute Assessment and Plan: Dueto fecal impaction Resolved (8) Lung mass: Code(s): R91.8 - Other nonspecific abnormal finding of lung field Status: Chronic Assessment and Plan: 1.4 cm RUL mass Patient and daughter would try RT but no surgery or chemotherapy Continue DNR status F/u for dx and tx as outpatient (9) Acute hypokalemia: Code(s): E87.6 - Hypokalemia Status: Acute Assessment and Plan: Recent poor PO intake and diarrhea PO KCL F/u lab Subjective Date/time seen: 02/15/20 11:36 Interval history: 02/14 Ate well. Denied pain. Less confused. Daughter at bedside. No change in chronic diarrhea. No bleeding. Review of Systems Review of Systems: All systems reviewed & are unremarkable except as noted in HPI and below Exam Narrative: Exam Narrative: HEENT: EOMI, PERRL, sclerae nonicteric, pharyngeal mucosa pink and intact NECK: No JVD CHEST: Clear to auscultation. Normal effort. HEART: NL S1/S2, regular, no murmur ABDOMEN: BS+, soft, nontender, no mass, no bruits EXTREMITIES: No cyanosis, edema, or clubbing NEUROLOGIC: CN intact and symmetric to inspection. MUSCULOSKELETAL: Tone and strength symmetric. PSYCH: Alert. Oriented to person and time (01/2020); but thought [place] [facility] Objective Data Vital Signs Vital Signs: Vital Signs - 2
[2020-02-15 11:57] LABS: Glucose Point of Care 145 (65-105)
[2020-02-15 14:00] VITALS: BP 132/73; PULSE 80; RESP 16; TEMP 36.9; O2SAT 98
--- NOTE | 2020-02-15 16:27 | PCOTNOTE ---
Patient declined therapy this date. Practitioner will attempt again at a later date 02/15/2020
[2020-02-15 17:00] LABS: Anion Gap 7 mmol/L (8-16); Blood Urea Nitrogen 16 mg/dL (9-20); Calcium 8.3 mg/dL (8.4-10.2); Carbon Dioxide 31 mmol/L (22-30); Chloride 95 mmol/L (98-107); Estimated CRCL calculation 90 ml/min; Estimated Glomerular Filt Rate > 60; Glucose 161 mg/dL (75-110); Potassium 3.6 mmol/L (3.4-5.0); Sodium 133 mmol/L (137-145)
[2020-02-15 19:54] LABS: Glucose Point of Care 217 (65-105)
[2020-02-15] MEDS: INSULIN GLARGINE (*BKC) 100 UNITS/ML 18 UNITS SUB-Q (21:27)
[2020-02-15] MEDS: ATORVASTATIN 40 MG TABLET BY MOUTH (21:28)
[2020-02-15] MEDS: FAMOTIDINE 20 MG TABLET 40 MG BY MOUTH (21:28)
[2020-02-15 22:00] VITALS: BP 155/85; PULSE 90; RESP 18; TEMP 36.9; O2SAT 92
[2020-02-16 00:03] LABS: SARS-CoV-2 RNA PCR Negative
[2020-02-16] MEDS: ONDANSETRON INJ 4 MG/2 ML VIAL IV PUSH (00:18)
[2020-02-16 03:15] LABS: Glucose Point of Care 152 (65-105)
[2020-02-16] MEDS: ALENDRONATE SODIUM 70 MG TABLET PO (05:11)
[2020-02-16 05:24] LABS: Glucose Point of Care 234 (65-105)
[2020-02-16 05:54] LABS: Hemoglobin 11.7 g/dL (14.0-18.0); Mean Corpuscular HGB Conc 33.4 g/dl (32-36); Mean Corpuscular Hemoglobin 29.2 pg (26-34); Mean Corpuscular Volume 87.3 fl (80-100); Mean Platelet Volume 9.3 fl (7.4-10.4); Platelet Count Result 283 k/mm3 (150-375); Red Blood Count 4.01 M/mm3 (4.6-6.20); Red Cell Distribution Width 13.7 % (11.5-14.5)
[2020-02-16 06:00] VITALS: BP 134/75; PULSE 95; RESP 20; TEMP 36.6; O2SAT 95
[2020-02-16 06:11] LABS: Anion Gap 6 mmol/L (8-16); Blood Urea Nitrogen 15 mg/dL (9-20); Calcium 7.8 mg/dL (8.4-10.2); Carbon Dioxide 29 mmol/L (22-30); Chloride 94 mmol/L (98-107); Estimated CRCL calculation 91 ml/min; Estimated Glomerular Filt Rate > 60; Glucose 253 mg/dL (75-110); Sodium 129 mmol/L (137-145)
[2020-02-16 08:00] VITALS: PULSE 95; RESP 20; O2SAT 95
[2020-02-16] MEDS: INSULIN ASPART (*BKC) 100 UNITS/ML SUB-Q ×2 (08:03→12:17)
[2020-02-16 08:08] LABS: Glucose Point of Care 279 (65-105)
[2020-02-16] MEDS: MESALAMINE 400 MG DELAYED RELEASE CAPSULE 800 MG PO ×3 (08:40→16:26)
[2020-02-16] MEDS: ASPIRIN 81 MG CHEWABLE TABLET PO (08:41)
[2020-02-16] MEDS: MULTIVITAMINS /C LUTEIN (CENTRUM SILVER) TABLET *BKC 1 TAB BY MOUTH (08:41)
[2020-02-16] MEDS: POTASSIUM CHLORIDE 20 MEQ PACKET (FOR LIQUID) 40 MEQ PO ×2 (09:19→16:27)
--- NOTE | 2020-02-16 10:45 | PCOTNOTE ---
Attempted to complete therapy session with patient this date, but patient was unable to stay awake and to perform exercises instructed 02/16/2020.
[2020-02-16 12:21] LABS: Glucose Point of Care 201 (65-105)
[2020-02-16 14:00] VITALS: BP 114/69; PULSE 88; RESP 16; TEMP 36.9; O2SAT 96
--- NOTE | 2020-02-16 16:01 | PCPTNOTE ---
PT attempted to see patient this afternoon for treatment. Patient would open eyes and respond but fell asleep before tasks could be completed. PT will continue to follow per plan of care.
--- NOTE | 2020-02-16 16:29 | P.PNIM_ITS ---
Progress Note: A&P Assessment and Plan (1) Aspiration into lower respiratory tract: Qualifiers: Encounter type: subsequent encounter Qualified Code(s): T17.800D - Unspecified foreign body in other parts of respiratory tract causing asph yxiation, subsequent encounter Code(s): T17.800A - Unspecified foreign body in other parts of respiratory tract causing asphyxiation, initial encounter Status: Acute Assessment and Plan: * Continue Zosyn * 02/14 stop vancomycin * Continue PT/OT * Continue soft, bite-sized foods with thickened liquids (2) Altered mental status: Qualifiers: Altered mental status type: disorientation Qualified Code(s): R41.0 - Disorientation, unspecified Code(s): R41.82 - Altered mental status, unspecified Status: Resolved Assessment and Plan: * Now afebrile * Suspected due to metabolic encephalopathy realted to aspiration * Seems to be improving, but continues to wax and wane 02/16/20 16:29 patient is 79-year-old male admitted with aspiration pneumonia today with Zosyn today patient is feeling better not a short of breath denies any fever or chills, this morning patient had a small brown emesis, denies any abdominal pain nausea or vomiting. patient clinically symptoms are improving will repeat chest x-ray tomorrow and further recommendation to follow (3) Elevated troponin: Code(s): R79.89 - Other specified abnormal findings of blood chemistry Status: Acute Assessment and Plan: * Likely related to the falls, not cardiac (4) Diabetes: Qualifiers: Diabetes mellitus type: type 2 Diabetes mellitus custodial insulin use: with custodial use Diabetes mellitus complication status: with kidney complications Diabetes mellitus complication detail: with chronic kidney diseas e Chronic kidney disease stage: stage 3 (moderate) Qualified Code(s): E11.22 - Type 2 diabetes mellitus with diabetic chronic kidney disease; N18.3 - Chronic kidney disease, stage 3 (moderate); Z79.4 - long term acute care registered nurse (current) use of insulin Code(s): E11.9 - Type 2 diabetes mellitus without complications Status: Chronic Assessment and Plan: * Continue SSI (5) Chronic ulcerative colitis: Qualifiers: Ulcerative colitis location: unspecified ulcerative colitis location Digestive disease complication type: without complication Qualified Code(s): K51.90 - Ulcerative colitis, unspecified, without complications Code(s): K51.90 - Ulcerative colitis, unspecified, without complications Status: Chronic Assessment and Plan: * Stable (6) Urinary retention: Code(s): R33.9 - Retention of urine, unspecified Status: Acute Assessment and Plan: * Resolved (7) Constipation: Qualifiers: Constipation type: unspecified constipation type Qualified Code(s): K59.00 - Constipation, unspecified Code(s): K59.00 - Constipation, unspecified Status: Acute Assessment and Plan: * Dueto fecal impaction * Resolved (8) Lung mass: Code(s): R91.8 - Other nonspecific abnormal finding of lung field Status: Chronic Assessment and Plan: * 1.4 cm RUL mass * Patient and daughter would try RT but no surgery or chemotherapy * Continue DNR status * F/u for dx and tx as outpatient (9) Acute hypokalemia: Code(s): E87.6 - Hypokalemia Status: Acute Assessment and Plan: * Recent poor PO intake and diarrhea * PO KCL * F/u lab Subjective Date/time seen: 02/16/20 16:29 patient is 79-year
--- NOTE | 2020-02-16 16:29 | PM.IMPN ---
Progress Note: A&P Assessment and Plan (1) Aspiration into lower respiratory tract: Qualifiers: Encounter type: subsequent encounter Qualified Code(s): T17.800D - Unspecified foreign body in other parts of respiratory tract causing asphyxiation, subsequent encounter Code(s): T17.800A - Unspecified foreign body in other parts of respiratory tract causing asphyxiation, initial encounter Status: Acute Assessment and Plan: Continue Zosyn 02/14 stop vancomycin Continue PT/OT Continue soft, bite-sized foods with thickened liquids (2) Altered mental status: Qualifiers: Altered mental status type: disorientation Qualified Code(s): R41.0 - Disorientation, unspecified Code(s): R41.82 - Altered mental status, unspecified Status: Resolved Assessment and Plan: Now afebrile Suspected due to metabolic encephalopathy realted to aspiration Seems to be improving, but continues to wax and wane 02/16/20 16:29 patient is 79-year-old male admitted with aspiration pneumonia today with Zosyn today patient is feeling better not a short of breath denies any fever or chills, this morning patient had a small brown emesis, denies any abdominal pain nausea or vomiting. patient clinically symptoms are improving will repeat chest x-ray tomorrow and further recommendation to follow (3) Elevated troponin: Code(s): R79.89 - Other specified abnormal findings of blood chemistry Status: Acute Assessment and Plan: Likely related to the falls, not cardiac (4) Diabetes: Qualifiers: Diabetes mellitus type: type 2 Diabetes mellitus terminal operator insulin use: with penitentiary use Diabetes mellitus complication status: with kidney complications Diabetes mellitus complication detail: with chronic kidney disease Chronic kidney disease stage: stage 3 (moderate) Qualified Code(s): E11.22 - Type 2 diabetes mellitus with diabetic chronic kidney disease; N18.3 - Chronic kidney disease, stage 3 (moderate); Z79.4 - terminal operator (current) use of insulin Code(s): E11.9 - Type 2 diabetes mellitus without complications Status: Chronic Assessment and Plan: Continue SSI (5) Chronic ulcerative colitis: Qualifiers: Ulcerative colitis location: unspecified ulcerative colitis location Digestive disease complication type: without complication Qualified Code(s): K51.90 - Ulcerative colitis, unspecified, without complications Code(s): K51.90 - Ulcerative colitis, unspecified, without complications Status: Chronic Assessment and Plan: Stable (6) Urinary retention: Code(s): R33.9 - Retention of urine, unspecified Status: Acute Assessment and Plan: Resolved (7) Constipation: Qualifiers: Constipation type: unspecified constipation type Qualified Code(s): K59.00 - Constipation, unspecified Code(s): K59.00 - Constipation, unspecified Status: Acute Assessment and Plan: Dueto fecal impaction Resolved (8) Lung mass: Code(s): R91.8 - Other nonspecific abnormal finding of lung field Status: Chronic Assessment and Plan: 1.4 cm RUL mass Patient and daughter would try RT but no surgery or chemotherapy Continue DNR status F/u for dx and tx as outpatient (9) Acute hypokalemia: Code(s): E87.6 - Hypokalemia Status: Acute Assessment and Plan: Recent poor PO intake and diarrhea PO KCL F/u lab Subjective Date/time seen: 02/16/20 16:29 patient is 79-year-old male admitted with aspiration pneumonia today with Zosyn today patient is feeling better not a short of breath denies any fever or chills, this morning patient had a small brown emesis, denies any abdominal pain nausea or vomiting. patient clinically symptoms are improving will repeat chest x-ray tomorrow and further recommendation to follow Review of Systems Review of Systems: All syst
[2020-02-16 16:39] LABS: Glucose Point of Care 176 (65-105)
[2020-02-16 20:53] VITALS: BP 137/64; PULSE 84; RESP 16; TEMP 36.8; O2SAT 96
[2020-02-16] MEDS: FAMOTIDINE 20 MG TABLET 40 MG BY MOUTH (21:30)
[2020-02-16] MEDS: ATORVASTATIN 40 MG TABLET BY MOUTH (21:30)
[2020-02-16] MEDS: INSULIN GLARGINE (*BKC) 100 UNITS/ML 18 UNITS SUB-Q (21:31)
[2020-02-16 21:40] LABS: Glucose Point of Care 175 (65-105)
[2020-02-17 06:00] VITALS: BP 141/63; PULSE 81; RESP 16; TEMP 36.9; O2SAT 91
[2020-02-17 06:04] LABS: Hematocrit 29.4 % (42.0-52.0); Hemoglobin 10.3 g/dL (14.0-18.0); Mean Corpuscular Volume 85.7 fl (80-100); Mean Platelet Volume 9.1 fl (7.4-10.4); Platelet Count Result 276 k/mm3 (150-375); Red Blood Count 3.43 M/mm3 (4.6-6.20); Red Cell Distribution Width 13.9 % (11.5-14.5); White Blood Count 9.6 K/mm3 (4.5-10.0)
[2020-02-17 06:16] LABS: Anion Gap 4 mmol/L (8-16); Blood Urea Nitrogen 13 mg/dL (9-20); Calcium 7.6 mg/dL (8.4-10.2); Carbon Dioxide 29 mmol/L (22-30); Chloride 100 mmol/L (98-107); Estimated CRCL calculation 87 ml/min; Estimated Glomerular Filt Rate > 60; Glucose 66 mg/dL (75-110); Potassium 3.5 mmol/L (3.4-5.0); Sodium 133 mmol/L (137-145)
[2020-02-17] MEDS: GLUCOSE ORAL GEL 15 GM OF GLUCSE IN 37.5 GM TUBE PO (07:28)
[2020-02-17 07:30] LABS: Glucose Point of Care 62 (65-105)
[2020-02-17 07:48] LABS: Glucose Point of Care 85 (65-105)
[2020-02-17] MEDS: ASPIRIN 81 MG CHEWABLE TABLET PO (08:25)
[2020-02-17] MEDS: MULTIVITAMINS /C LUTEIN (CENTRUM SILVER) TABLET *BKC 1 TAB BY MOUTH (08:26)
[2020-02-17] MEDS: MESALAMINE 400 MG DELAYED RELEASE CAPSULE 800 MG PO ×3 (08:26→17:09)
[2020-02-17] MEDS: POTASSIUM CHLORIDE 20 MEQ PACKET (FOR LIQUID) 40 MEQ PO ×2 (08:26→17:09)
[2020-02-17 11:29] LABS: Glucose Point of Care 173 (65-105)
--- NOTE | 2020-02-17 12:58 | PDRADONCCN ---
Recommendations I had a lengthy and detailed discussion with Mr. Yoo and his daughter ([email or web address]). Given his blood thinners, biopsy would be high risk, and he and his daughter would like to forego biopsy. A PET scan will be ordered as an outpatient. Assuming this reveals lung cancer, I had a discussion regarding the role of radiation therapy in the management of early stage lung cancer. We discussed lobectomy as the standard of care which has a 90-95% control rate for those patients that are operable. Given his co-morbidities, he is not a surgical candidate. We discussed standard conventionally fractionated radiation therapy which would be delivered daily, Monday through Monday over about 6 to 7 weeks with a 30-60% local control rate. We discussed the expected acute side effects of treatment including esophagitis, fatigue and skin irritation, as well as the possible but unlikely late complications including pneumonitis, heart damage, renal failure and esophageal stricture. We also reviewed stereotactic body radiation therapy (SBRT) which consists of 3 to 5 treatments over a couple of weeks with similar but much more limited (if any) side effects. Local control is around 90% - similar to lobectomy. Given he is not a good candidate for surgery, I recommend SBRT. After our discussion, the patient's daughter expressed an interest in proceeding with PET scan. We will arrange for further evaluation and treatment as an outpatient. 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 [facility] - Date/Time Seen 02/17/20 12:58 - Identifying Data Mikey Yoo is a 79 year old male with a 1.4 cm right upper lobe probable lung cancer. Consultation is requested for consideration of his treatment options. - History of Present Illness Mr. Yoo was admitted for frequent falls and diagnosed with aspiration pneumonia. CT scan of the chest, abdomen and pelvis revealed a 1.4 cm nodule in the right upper lobe, suspicious for primary lung cancer. He is reportedly not a surgery or chemotherapy candidate. Radiation oncology opinion is requested. Currently, his cough and shortness of breath are improving with antibiotics. His mental status is apparently improving as well. He denies new problems. His daughter (and POA) is present at the bedside. - Medical History Medical History (Last Updated 02/11/20 @ 15:13 by Nela Ortega NP) Chronic ulcerative colitis Colitis Diabetes History of TX (myocardial infarction) no stents The daughter tells me that the patient had a cardiac catheterization and was clear. So it is questionable History of pelvic fracture Peripheral arterial disease Peripheral vascular disease - Surgical History Surgical History (Last Updated 02/11/20 @ 15:07 by Neal Oretga NP) H/O rectal polypectomy History of esophagogastroduodenoscopy (EGD) S/P colonoscopic polypectomy S/P insertion of iliac artery stent bilaterally - Family History Family History (Last Updated 02/11/20 @ 15:10 by Nela Ortega NP) Mother Cerebrovascular accident Diabetes mellitus Father Lung cancer Emphysema lung - Social History Social History (Last Updated 02/11/20 @ 15:13 by Nela Ortega NP) Gender Identity: Gender identity (if verbalized by the patient): Male Alcohol Use: Alcohol intake: unknown Substance Use: Substance use: unknown Others: Spiritual care concerns: No Smoking Status: Smoking status: Unknown if ever smoked - Medications Active Medications Generic Name Dose Route Start Last Admin Trade Name Jorgeq PRN Reason Stop Dose Admin Acetaminophen 650 mg 02/11/20 19:20 02/11/20 21:32 Tylenol Tablet PO 650 mg ONCE PRN Administration Abdominal Pain Alendronate Sodium 70 mg 02/16/20 06:30 02/16/20 05:11 Fosamax PO 70 mg Watts@[id number] HERNESTO Administration Aspirin 81 mg 02/12/20 09:0
--- NOTE | 2020-02-17 14:10 | PM.IMPN ---
Progress Note: A&P Assessment and Plan (1) Aspiration into lower respiratory tract: Qualifiers: Encounter type: subsequent encounter Qualified Code(s): T17.800D - Unspecified foreign body in other parts of respiratory tract causing asphyxiation, subsequent encounter Code(s): T17.800A - Unspecified foreign body in other parts of respiratory tract causing asphyxiation, initial encounter Status: Acute Assessment and Plan: Continue Zosyn 02/14 stop vancomycin Continue PT/OT Continue soft, bite-sized foods with thickened liquids (2) Altered mental status: Qualifiers: Altered mental status type: disorientation Qualified Code(s): R41.0 - Disorientation, unspecified Code(s): R41.82 - Altered mental status, unspecified Status: Resolved Assessment and Plan: Now afebrile Suspected due to metabolic encephalopathy realted to aspiration Seems to be improving, but continues to wax and wane 02/17/20 14:10 patient is 79-year-old male admitted with aspiration pneumonia on 02/15 with Zosyn, today patient is feeling better sitting in the chair states cough is better and not as short of breath, repeat chest x-ray still shows persistent pneumonia and 1.4 cm lung mass suspicious for primary bronchogenic carcinoma patient is willing to consider radiation therapy but no chemotherapy, will consult radiation oncologist further recommendation, will continue present management and monitor patient will have PT OT evaluate the patient (3) Elevated troponin: Code(s): R79.89 - Other specified abnormal findings of blood chemistry Status: Acute Assessment and Plan: Likely related to the falls, not cardiac (4) Diabetes: Qualifiers: Diabetes mellitus type: type 2 Diabetes mellitus half-way insulin use: with half-way use Diabetes mellitus complication status: with kidney complications Diabetes mellitus complication detail: with chronic kidney disease Chronic kidney disease stage: stage 3 (moderate) Qualified Code(s): E11.22 - Type 2 diabetes mellitus with diabetic chronic kidney disease; N18.3 - Chronic kidney disease, stage 3 (moderate); Z79.4 - bed bug exterminator (current) use of insulin Code(s): E11.9 - Type 2 diabetes mellitus without complications Status: Chronic Assessment and Plan: Continue SSI (5) Chronic ulcerative colitis: Qualifiers: Ulcerative colitis location: unspecified ulcerative colitis location Digestive disease complication type: without complication Qualified Code(s): K51.90 - Ulcerative colitis, unspecified, without complications Code(s): K51.90 - Ulcerative colitis, unspecified, without complications Status: Chronic Assessment and Plan: Stable (6) Urinary retention: Code(s): R33.9 - Retention of urine, unspecified Status: Acute Assessment and Plan: Resolved (7) Constipation: Qualifiers: Constipation type: unspecified constipation type Qualified Code(s): K59.00 - Constipation, unspecified Code(s): K59.00 - Constipation, unspecified Status: Acute Assessment and Plan: Dueto fecal impaction Resolved (8) Lung mass: Code(s): R91.8 - Other nonspecific abnormal finding of lung field Status: Chronic Assessment and Plan: 1.4 cm RUL mass Patient and daughter would try RT but no surgery or chemotherapy Continue DNR status F/u for dx and tx as outpatient (9) Acute hypokalemia: Code(s): E87.6 - Hypokalemia Status: Acute Assessment and Plan: Recent poor PO intake and diarrhea PO KCL F/u lab Subjective Date/time seen: 02/17/20 14:10 patient is 79-year-old male admitted with aspiration pneumonia on 02/15 with Zosyn, today patient is feeling better sitting in the chair states cough is better and not as short of breath, repeat chest x-ray still shows persistent pneumonia and 1.4 cm lung mass s
[2020-02-17 14:50] VITALS: BP 145/62; PULSE 88; RESP 14; TEMP 37.2; O2SAT 98
[2020-02-17] MEDS: INSULIN ASPART (*BKC) 100 UNITS/ML SUB-Q ×2 (17:07→21:44)
[2020-02-17] MEDS: CALCIUM CARBONATE (TUMS) 500 MG (200 MG ELEMENTAL) PO (17:08)
[2020-02-17 17:34] LABS: Glucose Point of Care 315 (65-105)
[2020-02-17 21:20] VITALS: BP 158/75; PULSE 86; RESP 16; TEMP 36.8; O2SAT 97
[2020-02-17] MEDS: ONDANSETRON INJ 4 MG/2 ML VIAL IV PUSH (21:29)
[2020-02-17 21:30] LABS: Glucose Point of Care 356 (65-105)
[2020-02-17] MEDS: INSULIN GLARGINE (*BKC) 100 UNITS/ML 18 UNITS SUB-Q (21:34)
[2020-02-18 01:02] LABS: Glucose Point of Care 296 (65-105)
[2020-02-18] MEDS: ONDANSETRON INJ 4 MG/2 ML VIAL IV PUSH ×3 (05:04→20:48)
[2020-02-18 06:00] VITALS: BP 133/59; PULSE 82; RESP 16; TEMP 37.1; O2SAT 97
[2020-02-18 06:09] LABS: Hematocrit 31.5 % (42.0-52.0); Hemoglobin 10.6 g/dL (14.0-18.0); Mean Corpuscular HGB Conc 33.7 g/dl (32-36); Mean Corpuscular Hemoglobin 29.9 pg (26-34); Mean Corpuscular Volume 88.7 fl (80-100); Mean Platelet Volume 9.4 fl (7.4-10.4); Platelet Count Result 373 k/mm3 (150-375); Red Blood Count 3.55 M/mm3 (4.6-6.20); White Blood Count 15.8 K/mm3 (4.5-10.0)
[2020-02-18 06:17] LABS: Anion Gap 7 mmol/L (8-16); Blood Urea Nitrogen 21 mg/dL (9-20); Calcium 7.6 mg/dL (8.4-10.2); Carbon Dioxide 30 mmol/L (22-30); Chloride 94 mmol/L (98-107); Estimated CRCL calculation 85 ml/min; Estimated Glomerular Filt Rate > 60; Glucose 319 mg/dL (75-110); Potassium 4.1 mmol/L (3.4-5.0); Sodium 131 mmol/L (137-145)
[2020-02-18 08:06] LABS: Glucose Point of Care 308 (65-105)
[2020-02-18] MEDS: INSULIN ASPART (*BKC) 100 UNITS/ML SUB-Q ×3 (08:46→17:38)
[2020-02-18] MEDS: MESALAMINE 400 MG DELAYED RELEASE CAPSULE 800 MG PO ×2 (08:50→12:20)
[2020-02-18] MEDS: ASPIRIN 81 MG CHEWABLE TABLET PO (08:50)
[2020-02-18] MEDS: POTASSIUM CHLORIDE 20 MEQ PACKET (FOR LIQUID) 40 MEQ PO (08:50)
[2020-02-18] MEDS: MULTIVITAMINS /C LUTEIN (CENTRUM SILVER) TABLET *BKC 1 TAB BY MOUTH (08:51)
[2020-02-18 08:54] VITALS: RESP 18; O2SAT 95
[2020-02-18 11:13] VITALS: BP 141/67; PULSE 75; RESP 15; TEMP 36.8; O2SAT 95
[2020-02-18 11:35] LABS: Glucose Point of Care 314 (65-105)
[2020-02-18 13:28] LABS: SARS-CoV-2 RNA PCR Negative
[2020-02-18 14:00] VITALS: BP 141/67; PULSE 75; RESP 15; TEMP 36.8; O2SAT 95
--- NOTE | 2020-02-18 14:48 | PM.IMPN ---
Progress Note: A&P Assessment and Plan (1) Aspiration into lower respiratory tract: Qualifiers: Encounter type: subsequent encounter Qualified Code(s): T17.800D - Unspecified foreign body in other parts of respiratory tract causing asphyxiation, subsequent encounter Code(s): T17.800A - Unspecified foreign body in other parts of respiratory tract causing asphyxiation, initial encounter Status: Acute Assessment and Plan: Stop all IV ABX Continue PT/OT Continue soft, bite-sized foods with thickened liquids (2) Altered mental status: Qualifiers: Altered mental status type: disorientation Qualified Code(s): R41.0 - Disorientation, unspecified Code(s): R41.82 - Altered mental status, unspecified Status: Resolved Assessment and Plan: Now afebrile Suspected due to metabolic encephalopathy realted to aspiration Seems to be improving, but continues to wax and wane Unfortunately had alot of emesis and diarrhea today (3) Elevated troponin: Code(s): R79.89 - Other specified abnormal findings of blood chemistry Status: Acute Assessment and Plan: Likely related to the falls, not cardiac (4) Diabetes: Qualifiers: Diabetes mellitus type: type 2 Diabetes mellitus terminal gauger insulin use: with retirement use Diabetes mellitus complication status: with kidney complications Diabetes mellitus complication detail: with chronic kidney disease Chronic kidney disease stage: stage 3 (moderate) Qualified Code(s): E11.22 - Type 2 diabetes mellitus with diabetic chronic kidney disease; N18.3 - Chronic kidney disease, stage 3 (moderate); Z79.4 - FPC (current) use of insulin Code(s): E11.9 - Type 2 diabetes mellitus without complications Status: Chronic Assessment and Plan: Continue SSI (5) Chronic ulcerative colitis: Qualifiers: Ulcerative colitis location: unspecified ulcerative colitis location Digestive disease complication type: without complication Qualified Code(s): K51.90 - Ulcerative colitis, unspecified, without complications Code(s): K51.90 - Ulcerative colitis, unspecified, without complications Status: Chronic Assessment and Plan: Stable (6) Urinary retention: Code(s): R33.9 - Retention of urine, unspecified Status: Acute Assessment and Plan: Resolved (7) Constipation: Qualifiers: Constipation type: unspecified constipation type Qualified Code(s): K59.00 - Constipation, unspecified Code(s): K59.00 - Constipation, unspecified Status: Acute Assessment and Plan: Dueto fecal impaction Resolved order rpt KUB and CXR (8) Lung mass: Code(s): R91.8 - Other nonspecific abnormal finding of lung field Status: Chronic Assessment and Plan: 1.4 cm RUL mass Patient and daughter would try RT but no surgery or chemotherapy Continue DNR status F/u for dx and tx as outpatient (9) Acute hypokalemia: Code(s): E87.6 - Hypokalemia Status: Resolved Subjective Date/time seen: 02/18/20 14:48 Interval history: 79 year old male from [facility]. The patient was confused on admission. Pt issues in the past is mainly diarrhea, pt does have a history of UC. Pt has been having more falls and has been more confused one week. Pt is running a fever, no cough. Has not been able to urinate and has been dizzy. Pt is negative for the covid virus. PT has had ct head, chest, abdo and pelvis. UA is negative pt has a painter catheter in situ. CT chest shows? possible lung cancer. Pt has been treated for aspiration pneumonia. Unfortunately pt has had alot of diarrhea and a large emesis today dark with food. pt has history of UC if diarrhea does not improve i will consult GI. Review of Systems Review of Systems: All systems reviewed & are unremarkable except as noted in HPI and below Exam Narrati
--- NOTE | 2020-02-18 15:01 | PCDIET ---
Nutrition Follow-Up Complete: Increased nutrition needs r/t rt buttocks stage 2 pressure ulcer as evidence by daily protein needs of 85-99 for healing PO intake of 50% of meals and supplements to start wound healing Goal:Goal met. Continue goal. Pt current nutrition is DBCC, Thickened liquids, Level 6 Bite Sized and Supplements (Valentin/Glucerna BID). Nutrition recommendation: Agree Last recorded weight is 69.9 kg (steady from assessed wt of 70.7kg) Bowel Motility: Dulcolax provided Labs Reviewed: Glucose 319 WBC 15.8, Na 131, BUN 29, Cr .60 Additional Notes: Pt is eating 71% of meals over the last 5 meals. Wt steady. Plans to d/c. We will continue to monitor PO intake, skin, labs every five days if pt remains inpatient.
[2020-02-18] MEDS: AMOXICILLIN/CLAVULANATE K 500-125 MG TAB 1 TABLET PO ×2 (15:32→20:51)
--- NOTE | 2020-02-18 16:31 | PCSTNOTE ---
The patient treatment was not able to be completed on 02/18/20 due to vomitting and requesting no therapy this date. Will plan to continue treatment per plan of care.
[2020-02-18 16:34] LABS: Glucose Point of Care 301 (65-105)
[2020-02-18] MEDS: CALCIUM CARBONATE (TUMS) 500 MG (200 MG ELEMENTAL) PO (18:09)
[2020-02-18] MEDS: BISACODYL 5 MG TABLET EC PO ×2 (18:09→20:51)
[2020-02-18] MEDS: FAMOTIDINE 20 MG TABLET 40 MG BY MOUTH (20:50)
[2020-02-18] MEDS: ATORVASTATIN 40 MG TABLET BY MOUTH (20:51)
[2020-02-18] MEDS: INSULIN GLARGINE (*BKC) 100 UNITS/ML 18 UNITS SUB-Q (20:58)
[2020-02-18 21:17] LABS: Glucose Point of Care 282 (65-105)
[2020-02-18 22:00] VITALS: BP 158/69; PULSE 87; RESP 20; TEMP 36.6; O2SAT 95
[2020-02-19] VITALS (7 sets, daily range): BP systolic 120–138; BP diastolic 66–82; PULSE 68–90; RESP 14–20; TEMP 36.5–37.2; O2SAT 95–100
[2020-02-19 08:02] LABS: Glucose Point of Care 233 (65-105)
[2020-02-19] MEDS: INSULIN ASPART (*BKC) 100 UNITS/ML SUB-Q ×3 (08:02→17:00)
[2020-02-19] MEDS: AMOXICILLIN/CLAVULANATE K 500-125 MG TAB 1 TABLET PO ×3 (08:06→21:06)
[2020-02-19] MEDS: MESALAMINE 400 MG DELAYED RELEASE CAPSULE 800 MG PO ×3 (08:08→17:06)
[2020-02-19] MEDS: POTASSIUM CHLORIDE 20 MEQ PACKET (FOR LIQUID) 40 MEQ PO ×2 (08:08→17:06)
[2020-02-19] MEDS: ASPIRIN 81 MG CHEWABLE TABLET PO (08:08)
[2020-02-19] MEDS: MULTIVITAMINS /C LUTEIN (CENTRUM SILVER) TABLET *BKC 1 TAB BY MOUTH (08:09)
[2020-02-19 11:29] LABS: Glucose Point of Care 222 (65-105)
--- NOTE | 2020-02-19 11:40 | PM.IMPN ---
Progress Note: A&P Assessment and Plan (1) Aspiration into lower respiratory tract: Qualifiers: Encounter type: subsequent encounter Qualified Code(s): T17.800D - Unspecified foreign body in other parts of respiratory tract causing asphyxiation, subsequent encounter Code(s): T17.800A - Unspecified foreign body in other parts of respiratory tract causing asphyxiation, initial encounter Status: Acute Assessment and Plan: Stop all IV ABX Continue PT/OT Continue soft, bite-sized foods with thickened liquids (2) Altered mental status: Qualifiers: Altered mental status type: disorientation Qualified Code(s): R41.0 - Disorientation, unspecified Code(s): R41.82 - Altered mental status, unspecified Status: Resolved Assessment and Plan: After treatment of aspiration pneumonia (3) Elevated troponin: Code(s): R79.89 - Other specified abnormal findings of blood chemistry Status: Acute Assessment and Plan: Likely related to the falls, not cardiac (4) Diabetes: Qualifiers: Diabetes mellitus type: type 2 Diabetes mellitus residential insulin use: with residential use Diabetes mellitus complication status: with kidney complications Diabetes mellitus complication detail: with chronic kidney disease Chronic kidney disease stage: stage 3 (moderate) Qualified Code(s): E11.22 - Type 2 diabetes mellitus with diabetic chronic kidney disease; N18.3 - Chronic kidney disease, stage 3 (moderate); Z79.4 - USP (current) use of insulin Code(s): E11.9 - Type 2 diabetes mellitus without complications Status: Chronic Assessment and Plan: Continue SSI (5) Chronic ulcerative colitis: Qualifiers: Ulcerative colitis location: unspecified ulcerative colitis location Digestive disease complication type: without complication Qualified Code(s): K51.90 - Ulcerative colitis, unspecified, without complications Code(s): K51.90 - Ulcerative colitis, unspecified, without complications Status: Chronic Assessment and Plan: Stable (6) Urinary retention: Code(s): R33.9 - Retention of urine, unspecified Status: Acute Assessment and Plan: Resolved (7) Constipation: Qualifiers: Constipation type: unspecified constipation type Qualified Code(s): K59.00 - Constipation, unspecified Code(s): K59.00 - Constipation, unspecified Status: Acute Assessment and Plan: Dueto fecal impaction Resolved order rpt KUB and CXR (8) Lung mass: Code(s): R91.8 - Other nonspecific abnormal finding of lung field Status: Chronic Assessment and Plan: 1.4 cm RUL mass Patient and daughter would try RT but no surgery or chemotherapy Continue DNR status F/u for dx and tx as outpatient (9) Acute hypokalemia: Code(s): E87.6 - Hypokalemia Status: Resolved Subjective Date/time seen: 02/19/20 11:40 Interval history: 79 year old male from [facility]. The patient was confused on admission. Pt issues in the past is mainly diarrhea, pt does have a history of UC. Pt has been having more falls and has been more confused one week. Pt is running a fever, no cough. Has not been able to urinate and has been dizzy. Pt is negative for the covid virus. PT has had ct head, chest, abdo and pelvis. UA is negative pt has a painter catheter in situ. CT chest shows? possible lung cancer. Pt has been treated for aspiration pneumonia. Unfortunately pt has had alot of diarrhea and a large emesis today dark with food. Pt has history of UC, pt had a KUB showed fecal impaction, pt having suppositories and laxatives to clear. Hopeful discharge after bowel cleaning. Review of Systems Review of Systems: All systems reviewed & are unremarkable except as noted in HPI and below Constitutional: Constitutional: Denies excessive sweating, Denies fatigue, Denies fr
[2020-02-19] MEDS: BISACODYL 10 MG SUPPOSITORY RECTAL (11:57)
--- NOTE | 2020-02-19 16:24 | PCSTNOTE ---
The patient treatment was not able to be completed on 02/19/20 due to being fast asleep and unable to participate. Will plan to continue treatment per plan of care.
[2020-02-19 16:45] LABS: Glucose Point of Care 313 (65-105)
[2020-02-19] MEDS: FAMOTIDINE 20 MG TABLET 40 MG BY MOUTH (21:06)
[2020-02-19] MEDS: ATORVASTATIN 40 MG TABLET BY MOUTH (21:06)
[2020-02-19 21:10] LABS: Glucose Point of Care 285 (65-105)
[2020-02-19] MEDS: INSULIN GLARGINE (*BKC) 100 UNITS/ML 18 UNITS SUB-Q (21:12)
[2020-02-20] MEDS: AMOXICILLIN/CLAVULANATE K 500-125 MG TAB 1 TABLET PO ×3 (05:51→21:14)
[2020-02-20 06:06] VITALS: BP 153/76; PULSE 83; RESP 16; TEMP 36.9; O2SAT 99
[2020-02-20 06:29] LABS: Hematocrit 29.6 % (42.0-52.0); Hemoglobin 9.8 g/dL (14.0-18.0); Mean Corpuscular HGB Conc 33.1 g/dl (32-36); Mean Corpuscular Volume 87.6 fl (80-100); Mean Platelet Volume 8.6 fl (7.4-10.4); Platelet Count Result 440 k/mm3 (150-375); Red Blood Count 3.38 M/mm3 (4.6-6.20); Red Cell Distribution Width 13.8 % (11.5-14.5); White Blood Count 12.1 K/mm3 (4.5-10.0)
[2020-02-20 06:40] LABS: Potassium 3.8 mmol/L (3.4-5.0)
[2020-02-20 06:42] LABS: Anion Gap 3 mmol/L (8-16); Blood Urea Nitrogen 19 mg/dL (9-20); Calcium 7.6 mg/dL (8.4-10.2); Carbon Dioxide 30 mmol/L (22-30); Chloride 98 mmol/L (98-107); Estimated CRCL calculation 95 ml/min; Estimated Glomerular Filt Rate > 60; Glucose 201 mg/dL (75-110); Sodium 131 mmol/L (137-145)
[2020-02-20 07:54] LABS: Glucose Point of Care 176 (65-105)
[2020-02-20] MEDS: MESALAMINE 400 MG DELAYED RELEASE CAPSULE 800 MG PO (08:57)
[2020-02-20] MEDS: POTASSIUM CHLORIDE 20 MEQ PACKET (FOR LIQUID) 40 MEQ PO (08:57)
[2020-02-20 08:58] VITALS: RESP 16; O2SAT 99
[2020-02-20] MEDS: MULTIVITAMINS /C LUTEIN (CENTRUM SILVER) TABLET *BKC 1 TAB BY MOUTH (08:58)
[2020-02-20] MEDS: ASPIRIN 81 MG CHEWABLE TABLET PO (08:58)
[2020-02-20 11:28] LABS: Glucose Point of Care 280 (65-105)
[2020-02-20] MEDS: BISACODYL 10 MG SUPPOSITORY RECTAL ×2 (11:28→18:53)
[2020-02-20] MEDS: INSULIN ASPART (*BKC) 100 UNITS/ML SUB-Q ×2 (11:28→16:55)
--- NOTE | 2020-02-20 14:35 | PCOTNOTE ---
Attempted to see patient for therapy session, but patient declined, stating he wasn't feeling well due to not having a bowel movement for some time. Patient indicated he would like therapy to check back with him tomorrow.
--- NOTE | 2020-02-20 14:43 | P.PNIM_ITS ---
Progress Note: A&P Assessment and Plan (1) Aspiration into lower respiratory tract: Qualifiers: Encounter type: subsequent encounter Qualified Code(s): T17.800D - Unspecified foreign body in other parts of respiratory tract causing asph yxiation, subsequent encounter Code(s): T17.800A - Unspecified foreign body in other parts of respiratory tract causing asphyxiation, initial encounter Status: Acute Assessment and Plan: * Stop all IV ABX * Continue PT/OT * Continue soft, bite-sized foods with thickened liquids (2) Altered mental status: Qualifiers: Altered mental status type: disorientation Qualified Code(s): R41.0 - Disorientation, unspecified Code(s): R41.82 - Altered mental status, unspecified Status: Resolved Assessment and Plan: After treatment of aspiration pneumonia (3) Elevated troponin: Code(s): R79.89 - Other specified abnormal findings of blood chemistry Status: Acute Assessment and Plan: * Likely related to the falls, not cardiac (4) Diabetes: Qualifiers: Diabetes mellitus type: type 2 Diabetes mellitus correction insulin use: with correction use Diabetes mellitus complication status: with kidney compl ications Diabetes mellitus complication detail: with chronic kidney disease Chronic kidney disease stage: stage 3 (moderate) Qualified Code(s): E11.22 - Type 2 diabetes mellitus with diabetic chronic kidney disease; N18.3 - Chronic kidney disease, stage 3 (moderate); Z79.4 - senior care (current) use of insulin Code(s): E11.9 - Type 2 diabetes mellitus without complications Status: Chronic Assessment and Plan: * Continue SSI (5) Chronic ulcerative colitis: Qualifiers: Ulcerative colitis location: unspecified ulcerative colitis location Digestive disease complication type: without complication Qualified Code(s): K51.90 - Ulcerative colitis, unspecified, without complications Code(s): K51.90 - Ulcerative colitis, unspecified, without complications Status: Chronic Assessment and Plan: * Stable (6) Urinary retention: Code(s): R33.9 - Retention of urine, unspecified Status: Acute Assessment and Plan: * Resolved (7) Constipation: Qualifiers: Constipation type: unspecified constipation type Qualified Code(s): K59.00 - Constipation, unspecified Code(s): K59.00 - Constipation, unspecified Status: Acute Assessment and Plan: * Dueto fecal impaction 2 days ago found on KUB * rpt KUB today * Pt has history of UC, pt had a KUB showed fecal impaction, pt having suppositories and laxatives to clear. Hopeful discharge after bowel cleaning. * Gi consulted No response yet despite suppository and soap suds. I will try golytely today (8) Lung mass: Code(s): R91.8 - Other nonspecific abnormal finding of lung field Status: Chronic Assessment and Plan: * 1.4 cm RUL mass * Patient and daughter would try RT but no surgery or chemotherapy * Continue DNR status * F/u for dx and tx as outpatient (9) Acute hypokalemia: Code(s): E87.6 - Hypokalemia Status: Resolved Subjective Date/time seen: 02/20/20 14:43 Interval history: 79 year old male from [facility]. The patient was confused on admission. Pt issues in the past is mainly diarrhea, pt does have a history of UC. Pt has been having more falls and has been more confused one week. Pt is running a fever, no cough. Has not been able to urinate and has been dizzy. Pt is ne
--- NOTE | 2020-02-20 14:43 | PM.IMPN ---
Progress Note: A&P Assessment and Plan (1) Aspiration into lower respiratory tract: Qualifiers: Encounter type: subsequent encounter Qualified Code(s): T17.800D - Unspecified foreign body in other parts of respiratory tract causing asphyxiation, subsequent encounter Code(s): T17.800A - Unspecified foreign body in other parts of respiratory tract causing asphyxiation, initial encounter Status: Acute Assessment and Plan: Stop all IV ABX Continue PT/OT Continue soft, bite-sized foods with thickened liquids (2) Altered mental status: Qualifiers: Altered mental status type: disorientation Qualified Code(s): R41.0 - Disorientation, unspecified Code(s): R41.82 - Altered mental status, unspecified Status: Resolved Assessment and Plan: After treatment of aspiration pneumonia (3) Elevated troponin: Code(s): R79.89 - Other specified abnormal findings of blood chemistry Status: Acute Assessment and Plan: Likely related to the falls, not cardiac (4) Diabetes: Qualifiers: Diabetes mellitus type: type 2 Diabetes mellitus prison insulin use: with buttermaker helper use Diabetes mellitus complication status: with kidney complications Diabetes mellitus complication detail: with chronic kidney disease Chronic kidney disease stage: stage 3 (moderate) Qualified Code(s): E11.22 - Type 2 diabetes mellitus with diabetic chronic kidney disease; N18.3 - Chronic kidney disease, stage 3 (moderate); Z79.4 - MCC (current) use of insulin Code(s): E11.9 - Type 2 diabetes mellitus without complications Status: Chronic Assessment and Plan: Continue SSI (5) Chronic ulcerative colitis: Qualifiers: Ulcerative colitis location: unspecified ulcerative colitis location Digestive disease complication type: without complication Qualified Code(s): K51.90 - Ulcerative colitis, unspecified, without complications Code(s): K51.90 - Ulcerative colitis, unspecified, without complications Status: Chronic Assessment and Plan: Stable (6) Urinary retention: Code(s): R33.9 - Retention of urine, unspecified Status: Acute Assessment and Plan: Resolved (7) Constipation: Qualifiers: Constipation type: unspecified constipation type Qualified Code(s): K59.00 - Constipation, unspecified Code(s): K59.00 - Constipation, unspecified Status: Acute Assessment and Plan: Dueto fecal impaction 2 days ago found on KUB rpt KUB today Pt has history of UC, pt had a KUB showed fecal impaction, pt having suppositories and laxatives to clear. Hopeful discharge after bowel cleaning. Gi consulted No response yet despite suppository and soap suds. I will try golytely today (8) Lung mass: Code(s): R91.8 - Other nonspecific abnormal finding of lung field Status: Chronic Assessment and Plan: 1.4 cm RUL mass Patient and daughter would try RT but no surgery or chemotherapy Continue DNR status F/u for dx and tx as outpatient (9) Acute hypokalemia: Code(s): E87.6 - Hypokalemia Status: Resolved Subjective Date/time seen: 02/20/20 14:43 Interval history: 79 year old male from [facility]. The patient was confused on admission. Pt issues in the past is mainly diarrhea, pt does have a history of UC. Pt has been having more falls and has been more confused one week. Pt is running a fever, no cough. Has not been able to urinate and has been dizzy. Pt is negative for the covid virus. PT has had ct head, chest, abdo and pelvis. UA is negative pt has a painter catheter in situ. CT chest shows? possible lung cancer. Pt has been treated for aspiration pneumonia. Pt has history of UC, pt had a KUB showed fecal impaction, pt having suppositories and laxatives to clear. Hopeful discharge after bowel cleaning. No response yet despite suppos
--- NOTE | 2020-02-20 16:11 | WPDGICN ---
Assessment and Plan Assessment and plan (1) Fecal impaction: Code(s): K56.41 - Fecal impaction Status: Acute Assessment and Plan: Fecal impaction noted by CT scan on admission. Confirmed once again by a abdominal x-ray yesterday. Plan is to continue intermittent soap suds enemas or mineral oil enemas until this resolves. It is likely this contributes to patient's nausea and vomiting. Agree with limiting diet until this could be accomplished. Stool softeners or subsequently recommended. (2) Lung mass: Code(s): R91.8 - Other nonspecific abnormal finding of lung field Status: Chronic Assessment and Plan: Lung mass noted on admission. Power of assistant prosecuting attorney is decided not to pursue investigation. Strongly suggestive of bronchogenic carcinoma cord Radiology Service. (3) Diabetes: Qualifiers: Diabetes mellitus type: type 2 Diabetes mellitus termite helper insulin use: with fdc use Diabetes mellitus complication status: with kidney complications Diabetes mellitus complication detail: with chronic kidney disease Chronic kidney disease stage: stage 3 (moderate) Qualified Code(s): E11.22 - Type 2 diabetes mellitus with diabetic chronic kidney disease; N18.3 - Chronic kidney disease, stage 3 (moderate); Z79.4 - correction (current) use of insulin Code(s): E11.9 - Type 2 diabetes mellitus without complications Status: Chronic (4) Colitis: Code(s): K52.9 - Noninfective gastroenteritis and colitis, unspecified Status: Acute Assessment and Plan: Patient gives a history of colitis identified by colonoscopy at [facility] earlier this year. Currently on budesonide and recently on mesalamine therapy. It is uncertain whether this is microscopic colitis or ulcerative colitis. Old records will be sought. Continuing previous therapy is seems prudent at this time. GI Consult Note Consult date/time: 02/20/20 16:11 HPI: Mikey Yoo is a 79 year old male Seen in evaluation at the request of the hospitalist service. I am asked to see the patient because of a fecal impaction. Patient was admitted to the hospital on 02/11/2020 with mental status changes. He was felt to have pneumonia there is a question this may be related to aspiration. Patient is unable to add any additional useful history. He is more alert today. Power of assistant prosecuting attorney states that he does not have underlying dementia. Current [facility]. Apparently was having some falls at the time of admission the hospital. A CT scan at the time of admission revealed that he had a fecal impaction. Abdominal x-ray yesterday confirmed fecal impaction remains. He has only had 1 tap water enema given yesterday since admission to the hospital. No bleeding is reported. He has had some nausea vomiting. Patient does give a history of chronic diarrhea in the past. He has seen a bath mix operator at [facility] , who did an endoscopy in July of 2019. Patient is reported to have underlying colitis. This is uncertain whether this was ulcerative colitis or microscopic colitis. Patient has been placed on budesonide and then mesalamine with some improvement of diarrhea in fact he has become impacted constipated recently. no bleeding has been described. No fevers reported he apparently has had some nausea and vomiting during this hospital stay. Nursing staff reports that he is tolerating a mechanical soft diet and liquid diet without difficulty at this time. But does a cab occasional emesis. Review of Systems Review of Systems: ROS unobtainable: Yes unobtainable due to mental status [facility] Past Medical History Medical History Chronic ulcerative colitis Colitis Diabetes History of [place] (myocardial infarction) no stents The daughter tells me that the patient had a cardiac catheterization and was clear. So
[2020-02-20 16:17] VITALS: BP 143/72; PULSE 86; RESP 16; TEMP 36.9; O2SAT 99
[2020-02-20 16:47] LABS: Glucose Point of Care 263 (65-105)
[2020-02-20] MEDS: MAGNESIUM CITRATE 300 ML BTL 150 ML PO (16:47)
[2020-02-20] MEDS: PEG (High)/E-LYTE SOLN 4,000 ML BTL 3000 ML PO (16:49)
[2020-02-20 19:34] VITALS: BP 149/72; PULSE 89; RESP 16; TEMP 36.8; O2SAT 96
[2020-02-20] MEDS: FAMOTIDINE 20 MG TABLET 40 MG BY MOUTH (21:14)
[2020-02-20] MEDS: ATORVASTATIN 40 MG TABLET BY MOUTH (21:14)
[2020-02-20] MEDS: INSULIN GLARGINE (*BKC) 100 UNITS/ML 18 UNITS SUB-Q (21:18)
[2020-02-20 21:19] LABS: Glucose Point of Care 223 (65-105)
[2020-02-21] MEDS: AMOXICILLIN/CLAVULANATE K 500-125 MG TAB 1 TABLET PO ×2 (06:01→13:38)
[2020-02-21 06:25] VITALS: BP 141/68; PULSE 85; RESP 16; TEMP 37; O2SAT 96
[2020-02-21 06:51] LABS: Anion Gap 5 mmol/L (8-16); Blood Urea Nitrogen 16 mg/dL (9-20); Calcium 7.3 mg/dL (8.4-10.2); Carbon Dioxide 30 mmol/L (22-30); Chloride 96 mmol/L (98-107); Estimated CRCL calculation 96 ml/min; Estimated Glomerular Filt Rate > 60; Glucose 119 mg/dL (75-110); Potassium 3.4 mmol/L (3.4-5.0); Sodium 131 mmol/L (137-145)
[2020-02-21 06:59] LABS: Hematocrit 30.1 % (42.0-52.0); Hemoglobin 10.1 g/dL (14.0-18.0); Mean Corpuscular HGB Conc 33.6 g/dl (32-36); Mean Corpuscular Hemoglobin 29.3 pg (26-34); Mean Corpuscular Volume 87.2 fl (80-100); Mean Platelet Volume 8.7 fl (7.4-10.4); Platelet Count Result 491 k/mm3 (150-375); Red Blood Count 3.45 M/mm3 (4.6-6.20); Red Cell Distribution Width 13.7 % (11.5-14.5); White Blood Count 15.4 K/mm3 (4.5-10.0)
[2020-02-21 07:54] LABS: Glucose Point of Care 99 (65-105)
[2020-02-21] MEDS: MULTIVITAMINS /C LUTEIN (CENTRUM SILVER) TABLET *BKC 1 TAB BY MOUTH (08:05)
[2020-02-21] MEDS: BISACODYL 10 MG SUPPOSITORY RECTAL (08:05)
[2020-02-21] MEDS: POTASSIUM CHLORIDE 20 MEQ PACKET (FOR LIQUID) 40 MEQ PO (08:06)
--- NOTE | 2020-02-21 08:45 | WPDGIPROGNO ---
Progress Note: A&P Additional Plan Patient alert and comfortable this morning. Appears more oriented. He states he is hungry. Nursing staff reports a good bowel movement this morning after admission all enema last evening and magnesium citrate. No more vomiting. Physical exam reveals patient be alert. Vital signs stable. Lungs are clear. Heart without murmur. Abdomen soft nontender with no organomegaly. Labs reveal hemoglobin 10 is stable. Impression 1. Fecal impaction. Appears to have had a good response to enemas and magnesium citrate. Plan to advance diet soft diet today advanced to regular later. He passed his modified barium swallow in should be able to eat adequately. Especially since orientation is improved. May need to continue stool softeners on a regular basis. MiraLax will be ordered at this time. Additional enemas only if recurrent constipation. 2. Lung mass. Patient is reported to be DNR power of litigation attorney associate does not wish to pursue investigation at this time. 3. History of colitis. Specifics of this diagnosis are pending. Old records are requested. Patient has recently been treated with mesalamine and budesonide. Subjective Date/time seen: 02/21/20 08:45 Objective Data Vital Signs Vital Signs: Vital Signs - 24 hr 02/20/20 08:58 02/20/20 16:17 02/20/20 19:34 Temperature 98.5 F 98.2 F Pulse Rate 86 89 Respiratory Rate 16 16 16 Blood Pressure 143/72 H 149/72 H Pulse Oximetry 99 99 96 02/21/20 06:25 Temperature 98.6 F Pulse Rate 85 Respiratory Rate 16 Blood Pressure 141/68 H Pulse Oximetry 96 Intake/Output Intake/Output: Intake & Output 02/18/20 02/19/20 02/20/20 02/21/20 23:59 23:59 23:59 23:59 Intake Total 1220 1320 1830 Output Total 1550 1400 650 600 Balance -330 -80 1180 -600 Meds/Results Medications: Active Medications Generic Name Dose Route Start Last Admin Trade Name Freq PRN Reason Stop Dose Admin Acetaminophen 650 mg 02/11/20 19:20 02/11/20 21:32 Tylenol Tablet PO 650 mg ONCE PRN Administration Abdominal Pain Alendronate Sodium 70 mg 02/16/20 06:30 02/16/20 05:11 Fosamax PO 70 mg Watts@0630 HERNESTO Administration Amoxicillin/Clavulanate Potassium 1 tablet 02/18/20 14:00 02/21/20 06:01 Augmentin 500-125 Mg Tab PO 1 tablet Q8HR HERNESTO Administration Aspirin 81 mg 02/12/20 09:00 02/20/20 08:58 Aspirin Chewable PO 81 mg DAILY HERNESTO Administration Atorvastatin Calcium 40 mg 02/12/20 21:00 02/20/20 21:14 Lipitor BY MOUTH 40 mg HS HERNESTO Administration Bisacodyl 10 mg 02/12/20 13:06 Dulcolax Suppository RECTAL QAM PRN Constipation Bisacodyl 10 mg 02/20/20 10:30 02/21/20 08:05 Dulcolax Suppository RECTAL 10 mg BID HERNESTO Administration Bismuth Subsalicylate 524 mg 02/11/20 19:20 Pepto-Bismol Chewable Tablet PO TID PRN (Drug) Ingestion Calcium Carbonate 200 mg 02/15/20 18:10 02/18/20 18:09 Tums PO 200 mg Q6H PRN Administration Indigestion Chlorthalidone 12.5 mg 02/13/20 09:00 02/14/20 09:01 [place] BY MOUTH 12.5 mg DAILY HERNESTO Administration Dextrose 12.5 gm 02/11/20 15:21 Dextrose 50% Syringe IV PUSH PRN PRN Hypoglycemia Protocol Famotidine 40 mg 02/13/20 21:00 02/20/20 21:14 Pepcid BY MOUTH 40 mg HS HERNESTO Administration Glucagon 1 mg 02/11/20 15:21 Glucagon For Inj IM PRN PRN Hypoglycemia Protocol Glucose 15 gm 02/11/20 15:21 02/17/20 07:28 Glutose 15 PO 15 gm PRN PRN Administration Hypoglycemia Protocol Dextrose 1,000 mls @ 100 mls/hr 02/11/20 15:21 Dextrose 5% 1,000 Ml IVPB PRN PRN Hypoglycemia Protocol Insulin Aspart 2 - 5 units 02/11/20 17:00 02/21/20 07:54 Novolog SUB-Q Not Given TIDWM [facility] Protocol Insulin Glargine 18 units 02/13/20 22:55 02/20/20 21:18 Lantus SUB-Q 18 units HS HERNESTO Administration
[2020-02-21] MEDS: ASPIRIN 81 MG CHEWABLE TABLET PO (09:38)
[2020-02-21] MEDS: polyethylene glycoL 3350 17 GM POWD.PACK PO (09:38)
--- NOTE | 2020-02-21 11:40 | PM.DS ---
DS: Admitting Diagnosis Admitting Diagnosis Admitting Diagnosis: ELEVATED TROPONIN,HYPOKALEMIA,FREQUENT FALLS DS: Discharge Diagnosis Discharge Diagnosis (1) Aspiration into lower respiratory tract: Qualifiers: Encounter type: subsequent encounter Qualified Code(s): T17.800D - Unspecified foreign body in other parts of respiratory tract causing asphyxiation, subsequent encounter Code(s): T17.800A - Unspecified foreign body in other parts of respiratory tract causing asphyxiation, initial encounter Status: Acute Assessment and Plan: Transition to oral antibiotics for treatment for aspiration pneumonia Continue soft, bite-sized foods with thickened liquids (2) Altered mental status: Qualifiers: Altered mental status type: disorientation Qualified Code(s): R41.0 - Disorientation, unspecified Code(s): R41.82 - Altered mental status, unspecified Status: Resolved Assessment and Plan: AMS resolved after treatment of aspiration pneumonia (3) Elevated troponin: Code(s): R79.89 - Other specified abnormal findings of blood chemistry Status: Acute Assessment and Plan: Likely related to the falls, not cardiac (4) Diabetes: Qualifiers: Chronic kidney disease stage: stage 3 (moderate) Diabetes mellitus complication detail: with chronic kidney disease Diabetes mellitus complication status: with kidney complications Diabetes mellitus alf insulin use: with continuous churn buttermaker use Diabetes mellitus type: type 2 Qualified Code(s): E11.22 - Type 2 diabetes mellitus with diabetic chronic kidney disease; N18.3 - Chronic kidney disease, stage 3 (moderate); Z79.4 - alf (current) use of insulin Code(s): E11.9 - Type 2 diabetes mellitus without complications Status: Chronic Assessment and Plan: Continue SSI (5) Chronic ulcerative colitis: Qualifiers: Digestive disease complication type: without complication Ulcerative colitis location: unspecified ulcerative colitis location Qualified Code(s): K51.90 - Ulcerative colitis, unspecified, without complications Code(s): K51.90 - Ulcerative colitis, unspecified, without complications Status: Chronic Assessment and Plan: Stable pt is on mesalamine and budesonide (6) Urinary retention: Code(s): R33.9 - Retention of urine, unspecified Status: Acute Assessment and Plan: Resolved Urinary catheter removed prior to discharge (7) Constipation: Qualifiers: Constipation type: unspecified constipation type Qualified Code(s): K59.00 - Constipation, unspecified Code(s): K59.00 - Constipation, unspecified Status: Resolved Assessment and Plan: Dueto fecal impaction Pt has history of UC, pt had a KUB showed fecal impaction, pt having suppositories and laxatives to clear. Pt had good bowel movement stable for discharged Gi consulted for help with management of fecel impactation prone to constipation, discharged with miralax (8) Lung mass: Code(s): R91.8 - Other nonspecific abnormal finding of lung field Status: Chronic Assessment and Plan: 1.4 cm RUL mass Patient and daughter would try RT but no surgery or chemotherapy Continue DNR status F/u for dx and tx as outpatient Pt is chronically ill (9) Acute hypokalemia: Code(s): E87.6 - Hypokalemia Status: Resolved Assessment and Plan: Pt is eating better DS: Summary Time Spent with Patient Time attestation: Total time spent providing and/or coordinating discharge services:40 minutes on day of discharge Exam Narrative: Exam Narrative: Elderly pleasant man Const: General: comfortable, no acute distress, alert and awake Nutritional Appearance: average body habitus and well nourished Orientation/consciousness: oriented to person Limitations: no limitations Other: No confused today, history of
[2020-02-21 11:46] LABS: Glucose Point of Care 93 (65-105)
== END 2020-02-21 15:50 | DRG 177 ==
LOC: ANHED 13:53 → ANHICU 14:42 → ANHIMU 02-12 06:03 → ANH3MED 02-13 21:21 → ANHIMU 02-24 17:13
PROVIDERS: Emergency Medicine Emergency Medical Services; Family Medicine; Internal Medicine; Nurse Practitioner; Admitting Provider Family Medicine; Emergency Provider Emergency Medicine; PCP Family Medicine; Visit Provider Family Medicine
DX: J69.0 Pneumonitis due to inhalation of food and vomit (principal); G93.41 Metabolic encephalopathy; K51.80 Other ulcerative colitis without complications; T17.800A Unspecified foreign body in other parts of respiratory tract causing asphyxiation, initial encounter; E11.22 Type 2 diabetes mellitus with diabetic chronic kidney disease; Z20.828 Contact with and (suspected) exposure to other viral communicable diseases; N18.3 Chronic kidney disease, stage 3 (moderate); R33.9 Retention of urine, unspecified; R91.1 Solitary pulmonary nodule; K59.00 Constipation, unspecified; E87.6 Hypokalemia; E11.51 Type 2 diabetes mellitus with diabetic peripheral angiopathy without gangrene; I73.9 Peripheral vascular disease, unspecified; R29.6 Repeated falls; Z66 Do not resuscitate; Z79.4 Long term (current) use of insulin; Z87.891 Personal history of nicotine dependence; I25.2 Old myocardial infarction
CPT/HCPCS: 36415; 51701; 70450; 71045; 71260; 73502; 74018; 74177; 80048; 80053; 80202; 81001; 82550; 82728; 83605; 83690; 83735; 84100; 84132; 84484; 85025; 85027; 87040; 87045; 87046; 87086; 87427; 87635; 92526; 92611; 93005; 96365; 96366; 96368; 96372; 96375; 96376; 97110; 97116; 97161; 97165; 97530; 97535; 99291; A9270; C9803; G0378; J0131; J1630; J1815; J2060; J2405; J2543; J3370; J3480; J7030; Q9967; U0003

== ENCOUNTER 2020-03-21 13:06 | Emergency (ER) | payer MEDICARE, SELFPAY ==
--- NOTE | ~2020-03-21 | CT_ITS ---
EXAMINATION: CT brain wo con DATE: 03/21/2020 14:42 INDICATION: Status post fall. Head injury. TECHNIQUE: Computed tomography (CT) of the head was performed without intravenous contrast. The dose- length product was 756.67 mGy-cm. Automated exposure control and iterative reconstruction technique w ere employed. COMPARISON: CT dated 02/11/2020 FINDINGS: No acute intracranial hemorrhage, infarction, mass or mass effect. No ventriculomegaly or m idline shift. There is intracranial atherosclerosis. There are scattered moderate periventricular and subcortical white matter changes, most likely related to small vessel ischemic disease (microangiopa thy). Paranasal sinuses and mastoids are pneumatized. No depressed skull fractures. IMPRESSION: 1. No acute intracranial abnormality. 2: Chronic age-related findings. Reviewed, dictated and finalized at location A.
[2020-03-21 13:14] VITALS: BP 144/61; PULSE 83; RESP 16; TEMP 36.4; O2SAT 100
--- NOTE | 2020-03-21 14:16 | ED.HEATRA ---
HPI - Head Injury General Chief complaint: Head Injury Stated complaint: fall on blood thinners Time Seen by Provider: 03/21/20 13:39 Source: patient Mode of arrival: ambulatory Limitations: no limitations History of Present Illness HPI Narrative: 79 years old white male states balance and fell landed at the back of his head. No loss of consciousness, complaining of laceration at the occipital area, denies other injuries. Patient on Plavix and aspirin. Patient denies any fever, chills, nausea, vomiting, chest pain, shortness of breath, headache, urinary symptoms. Related Data Home Medications Medication Instructions Recorded Confirmed Calcium 600 + D(3) 1 tablet PO DAILY 02/11/20 03/21/20 Lantus Solostar U-100 Insulin 18 unit SUBCUT HS 02/11/20 03/21/20 Novofine Autocover 02/11/20 03/21/20 Pepto-Bismol 2 tablet PO TID PRN 02/11/20 02/11/20 Theratrum Complete 50 Plus-lyc 1 tablet PO DAILY 02/11/20 03/21/20 acetaminophen [Tylenol] 650 mg PO ONCE PRN 02/11/20 03/21/20 alendronate 70 mg PO WEEKLY 02/11/20 03/21/20 aspirin 81 mg PO DAILY 02/11/20 02/11/20 atorvastatin 40 mg PO HS 02/11/20 03/21/20 budesonide 3 mg PO TID 02/11/20 02/11/20 chlorthalidone 25 mg PO BID 02/11/20 03/21/20 clopidogrel 75 mg PO DAILY 02/11/20 03/21/20 diphenoxylate-atropine 2 tablet PO BID 02/11/20 03/21/20 famotidine 20 mg PO DAILY 02/11/20 02/11/20 insulin lispro 8 unit SUBCUT AC 02/11/20 03/21/20 cetirizine 5 mg PO DAILY 03/21/20 03/21/20 esomeprazole magnesium 40 mg PO DAILY 03/21/20 03/21/20 magnesium oxide 400 mg PO DAILY 03/21/20 03/21/20 melatonin 3 mg PO HS PRN 03/21/20 03/21/20 mesalamine 4.8 g PO DAILY 03/21/20 03/21/20 potassium chloride meq PO 03/21/20 Allergies Allergy/AdvReac Type Severity Reaction Status Date / Time No Known Allergies Allergy Verified 03/21/20 13:19 Review of Systems Review of Systems: Narrative: CONSTITUTIONAL: Denies fever, chills, or sweats. EYES: Denies visual changes, redness, or discharge. ENT: Denies rhinorrhea, congestion, sore throat, or otalgia. CARDIOVASCULAR: Denies chest pain, palpitations, or edema. RESPIRATORY: Denies cough or dyspnea. GASTROINTESTINAL: Denies abdominal pain, nausea, vomiting, or diarrhea. GENITOURINARY: Denies dysuria or hematuria. SKIN: Denies rash or itching. MUSCULOSKELETAL: Denies back pain, joint pain, or myalgia. NEUROLOGIC: Denies headache, numbness, or weakness. PSYCHIATRIC: Denies anxiety or depression. [facility], [facility] Past Medical History Medical History Chronic ulcerative colitis Colitis Diabetes History of [place] (myocardial infarction) no stents The daughter tells me that the patient had a cardiac catheterization and was clear. So it is questionable History of pelvic fracture Peripheral arterial disease Peripheral vascular disease Surgical History Surgical History H/O rectal polypectomy History of esophagogastroduodenoscopy (EGD) S/P colonoscopic polypectomy S/P insertion of iliac artery stent bilaterally Family History Family History Mother Cerebrovascular accident Diabetes mellitus Father Lung cancer Emphysema lung Social History Social History Social History: the patient currently resides at [facility]. The patient smoked up until just a couple years ago. The patient has 2 children. But the 1 when she was 22 years old. He is . His daughter Jamila is a durable power insurance defense attorney for healthcare. 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 He is retired. No alcohol or substance abuse. Smoking status: Unknown if ever smoked Alcohol intake: unknown Substance use: unknown Gender identity (if verbalized by the patient): Male Spiritual care concerns: No Exam Narrative: Exam Narrative: General appearance: Well-developed, well-no
[2020-03-21] MEDS: TETANUS,DIPHTHERIA,AC PERTUSSIS ADULT (0.5 ML) BOOSTRIX IM (14:48)
== END 2020-03-21 15:52 | disposition home or self-care (01) ==
PROVIDERS: Emergency Provider Emergency Medicine; PCP Family Medicine
DX: S01.01XA Laceration without foreign body of scalp, initial encounter (principal); Z23 Encounter for immunization; E11.51 Type 2 diabetes mellitus with diabetic peripheral angiopathy without gangrene; Z66 Do not resuscitate; Z79.4 Long term (current) use of insulin; Z79.82 Long term (current) use of aspirin; Z79.02 Long term (current) use of antithrombotics/antiplatelets; W18.39XA Other fall on same level, initial encounter
CPT/HCPCS: 12002; 70450; 90471; 90715; 99284

== ENCOUNTER 2020-12-04 08:57 | Outpatient (CLI) | payer MEDICARE, SELFPAY ==
--- NOTE | ~2020-12-04 | CT_ITS ---
EXAMINATION: CTA neck DATE: 12/04/2020 09:40 INDICATION: Bilateral carotid artery stenosis. TECHNIQUE: Computed tomographic angiography (CTA) of the neck was performed with 100 mL Omnipaque-350 intravenous contrast. Automated exposure control and iterative reconstruction technique were employe d. The dose-length product was 449.30 mGy-cm. Maximum intensity projection 3D-reconstructions were cr eated by the technologist on a separate workstation. COMPARISON: Chest CT 02/11/2020 FINDINGS: Partially visualized is a 17 mm nodule in right lung upper lobe, worsened from 14 mm on 01/24. There is mild scarring at the lung apices. There is a 5 mm nodule in left thyroid lobe, likel y not clinically significant. There are no pathologically enlarged lymph nodes. The vertebral arterie s are codominant. There is no significant stenosis of the vertebral arteries. There is plaque in the proximal internal carotid arteries. Distal right internal carotid artery is smaller than the left, c onsistent with near occlusion stenosis. There is 25% stenosis of the proximal left internal carotid a rtery relative to normal distal artery lumen diameter. Multifocal dental disease is noted. There is s evere cervical spondylosis. IMPRESSION: 1. 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 2. 25% stenosis of the proximal left internal carotid artery relative to normal distal artery lumen d iameter. 3. 17 mm right upper lobe pulmonary nodule, worsened from 14 mm on 02/11/2020, consistent with primary bronchogenic carcinoma. Reviewed, dictated and finalized at location A. IMPRESSION: 1. 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 2. 25% stenosis of the proximal left internal carotid artery relative to normal distal artery lumen diameter. 3. 17 mm right upper lobe pulmonary nodule, worsened from 14 mm on 02/11/2020, c onsistent with primary bronchogenic carcinoma.
[2020-12-04 09:29] LABS: Estimated Glomerular Filt Rate > 60
== END 2020-12-04 08:58 | disposition home or self-care (01) ==
PROVIDERS: PCP Nurse Practitioner Family; Visit Provider Nurse Practitioner Family
DX: I65.23 Occlusion and stenosis of bilateral carotid arteries (principal); R91.1 Solitary pulmonary nodule
CPT/HCPCS: 70498; Q9967

== ENCOUNTER 2020-12-22 07:43 | Outpatient (CLI) | payer MEDICARE, SELFPAY ==
[2020-12-22 08:15] LABS: Glucose Point of Care 251 mg/dl (65-105)
== END 2020-12-22 07:44 | disposition home or self-care (01) ==
LOC: ANHIMG 07:47
PROVIDERS: PCP Nurse Practitioner Family; Visit Provider Nurse Practitioner Family
DX: R91.1 Solitary pulmonary nodule (principal)
CPT/HCPCS: 82948

== ENCOUNTER 2021-01-07 11:49 | Outpatient (CLI) | payer MEDICARE, SELFPAY ==
--- NOTE | ~2021-01-07 | PE_ITS ---
EXAMINATION: PET skull to mid thigh DATE: 01/07/2021 13:47 INDICATION: Solitary pulmonary nodule. TECHNIQUE: Blood glucose level was 133 mg/dL. 11.637 mCi of 18-fluorodeoxyglucose (18-FDG) was admini stered i.v. Low dose computed tomography (CT) images were acquired from the base of the brain to the proximal thighs for attenuation correction and anatomic localization. Automated exposure control was employed. Dose-length product (DLP) was 632 mGy-cm. Positron emission tomography (PET) images were ac quired in the same distribution. COMPARISON: Neck CT 12/04/2020, CT chest, abdomen, and pelvis 02/11/2020 FINDINGS: Head/neck: There are no pathologically enlarged lymph nodes. Chest: There is mild scarring at the lung apices. There is a 17 mm nodule in right lung upper lobe wi th maximum SUV of 8.3. No pleural effusion. There is left atrial enlargement of the heart. There are coronary artery calcifications. No pericardial effusion. There is a 10 x 15 mm right paratracheal nod e without increased activity, likely benign. There are old left-sided rib fractures. Abdomen/pelvis/proximal thighs: There is a 1.5 cm cyst in left hepatic lobe. The spleen, gallbladder, pancreas, adrenal glands, and kidneys are normal. Stool distends the rectum. The prostate is mildly enlarged. There are no pathologically enlarged lymph nodes. There is no free intraperitoneal fluid. T here is subcutaneous soft tissue attenuation with calcifications without increased activity in the an terior abdominal wall bilaterally, consistent with scarring. There are stents in the common and exter nal iliac arteries. 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 IMPRESSION: 1. 17 mm nodule in right lung upper lobe with increased activity, consistent with primary bronchogeni c carcinoma. Reviewed, dictated and finalized at location A. IMPRESSION: 1. 17 mm nodule in right lung upper lobe with increased activity, consistent wi th primary bronchogenic carcinoma.
[2021-01-07 12:18] LABS: Glucose Point of Care 133 mg/dl (65-105)
== END 2021-01-07 11:50 | disposition home or self-care (01) ==
LOC: ANHIMG 11:50
PROVIDERS: PCP Nurse Practitioner Family; Visit Provider Nurse Practitioner Family
DX: R91.1 Solitary pulmonary nodule (principal)
CPT/HCPCS: 78815; A9552

== ENCOUNTER 2022-04-22 17:40 | Inpatient (IN) | payer MEDICARE, SELFPAY ==
--- NOTE | ~2022-04-22 | MR_ITS ---
EXAMINATION: MR brain/brain stem wo con DATE: 04/24/2022 13:32 INDICATION: Facial droop. TECHNIQUE: Magnetic resonance imaging (MRI) of the brain and brainstem was performed without intraven ous contrast. COMPARISON: Head CT 04/14/2022 FINDINGS: There are scattered areas of nonspecific increased T2-weighted signal intensity in the cere bral white matter. There is no intracranial hemorrhage, acute infarction, or abnormal intracranial ma ss lesion. The ventricles are normal in size. There is a right frontal scalp hematoma. There are like ly changes of ocular lens replacement surgeries. The paranasal sinuses are clear. The mastoid air gordo ls are normal. IMPRESSION: 1. Moderate nonspecific cerebral white matter disease, which likely represents chronic small vessel i schemic disease. Reviewed, dictated and finalized at location E. IMPRESSION: 1. Moderate nonspecific cerebral white matter disease, which likely represents chronic small vessel ischemic disease.
--- NOTE | ~2022-04-22 | CT_ITS ---
EXAMINATION: CT brain wo con DATE: 04/22/2022 19:03 INDICATION: Head injury. TECHNIQUE: Computed tomography (CT) of the head was performed without intravenous contrast. The mA wa s adjusted according to patient size. Iterative reconstruction technique was employed. The dose-lengt h product was 832.33 mGy-cm. COMPARISON: Head CT 02/11/20 FINDINGS: There are scattered areas of low attenuation in the cerebral white matter. There is no intr acranial hemorrhage, acute infarction, or abnormal intracranial mass lesion. The ventricles are ronald l in size. There is a right frontal scalp hematoma. There are likely changes of ocular lens replaceme nt surgeries. There is mucosal thickening in the paranasal sinuses. The mastoid air cells are normal. There are chronic C1 ring fractures. IMPRESSION: 1. Moderate nonspecific cerebral white matter disease, which likely represents chronic small vessel i schemic disease. 2. Chronic C1 ring fractures. Reviewed, dictated and finalized at location A. IMPRESSION: 1. Moderate nonspecific cerebral white matter disease, which likely represents chronic small vessel ischemic disease. 2. Chronic C1 ring fractures.
--- NOTE | ~2022-04-22 | CT_ITS ---
EXAMINATION: CT cervical spine wo con DATE: 04/22/2022 19:20 INDICATION: Head injury. Right neck pain. TECHNIQUE: Computed tomography (CT) of the cervical spine was performed without intravenous contrast. Automated exposure control and iterative reconstruction technique were employed. The dose-length pro duct was 421.99 mGy-cm. COMPARISON: Head CT 02/11/2020 FINDINGS: There are airspace opacities in right lung upper lobe. There is a right pleural effusion. T here is 2 mm anterolisthesis of C3 on C4 and 3 mm anterolisthesis of C4 on C5. There is kyphosis of l ower cervical spine. Vertebral body heights are normal. There are fractures of the left anterior C1 a rch and right and left posterior C1 arch. There is mildly decreased disc height at C2-C3 and C4-C5, s everely decreased disc height at C5-C6 and C6-C7, and mildly decreased disc height at C7-T1. The foll owing disc levels are specifically discussed: C2-C3: There is mild right and moderate left uncovertebral joint osteoarthritis. There is severe bila teral facet joint osteoarthritis. There is mild left neural foraminal stenosis. There is mild central canal stenosis. C3-C4: There is mild right and moderate left uncovertebral joint osteoarthritis. There is severe bila teral facet joint osteoarthritis. There is mild bilateral neural foraminal stenosis. There is mild ce ntral canal stenosis. C4-C5: There is moderate bilateral uncovertebral joint osteoarthritis. There is severe bilateral face t joint osteoarthritis. There is moderate right and mild left neural foraminal stenosis. There is mil d central canal stenosis. C5-C6: There is severe bilateral uncovertebral joint osteoarthritis. There is mild bilateral facet deshaun int osteoarthritis. There is mild bilateral neural foraminal stenosis. There is mild central canal st enosis. C6-C7: There is moderate right and severe left uncovertebral joint osteoarthritis. There is mild bila teral facet joint osteoarthritis. There is mild bilateral neural foraminal stenosis. There is mild ce ntral canal stenosis. C7-T1: There is no uncovertebral joint osteoarthritis. There is severe bilateral facet joint osteoart hritis. There is mild bilateral neural foraminal stenosis. There is no central canal stenosis. IMPRESSION: 1. 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 2. Severe cervical spondylosis. 3. Right lung upper lobe airspace opacities, consistent with lung cancer and pneumonia versus treatme nt changes. 4. Right pleural effusion. Reviewed, dictated and finalized at location A. IMPRESSION: 1. 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 2. Severe cervical spondylosis. 3. Right lung upper lobe airspace opacities, consistent with lung cancer and pn eumonia versus treatment changes. 4. Right pleural effusion.
--- NOTE | ~2022-04-22 | XR_ITS ---
EXAMINATION: XR chest 2V DATE: 04/22/2022 20:23 INDICATION: Pneumonia. TECHNIQUE: Frontal and lateral views of the chest were obtained on 3 radiographs. COMPARISON: Chest single view 02/18/2020, PET/CT 01/07/21 FINDINGS: There are moderate-sized right and small left pleural effusions. There are airspace opaciti es in right upper lobe. There are airspace opacities at right lung base. No pneumothorax. Cardiomegal y is noted. There are multiple old healed left rib fractures. There is chronic height loss of multipl e vertebral bodies. IMPRESSION: 1. Moderate-sized right and small left pleural effusions. 2. Airspace opacities in right upper lobe, consistent with lung cancer and pneumonia and/or treatment changes. 3. Airspace opacities at right lung base, consistent with atelectasis versus pneumonia. 4. Cardiomegaly. Reviewed, dictated and finalized at location A. IMPRESSION: 1. Moderate-sized right and small left pleural effusions. 2. Airspace opacities in right upper lobe, consistent with lung cancer and pneu monia and/or treatment changes. 3. Airspace opacities at right lung base, consistent with atelectasis versus pn eumonia. 4. Cardiomegaly.
--- NOTE | ~2022-04-22 | CT_ITS ---
EXAMINATION: CT chest high resolution wo co DATE: 04/24/2022 08:09 INDICATION: History of lung cancer. TECHNIQUE: Computed tomography (CT) of the chest was performed without intravenous contrast. The dose -length product was 482.47 mGy-cm. Automated exposure control and iterative reconstruction technique were employed. COMPARISON: CT dated 02/11/2020 FINDINGS: Moderate right and small left pleural effusions. There is atherosclerosis of the aorta and coronary arteries. There is a large pericardial effusion. There is mediastinal lymphadenopathy. For e xample right paratracheal lymph node measures 1.3 cm unchanged from prior CT. There is masslike conso lidation in the right upper lobe extending to the hilum and the pleural surface. This mass measures 3 x 5 x 3.2 cm. The upper abdomen is unremarkable. No pneumothorax. There is a chronic burst fracture of L1. There are mild wedge compression deformities of T5-T8 which appear chronic. No focal lytic or blastic lesions are seen. There are old healed left-sided rib fractures There is right basilar airspa ce consolidation which may represent pneumonia and/or atelectasis. There are pleural calcifications s uggesting previous asbestos exposure. IMPRESSION: 1. Enlarging right upper lobe masslike consolidation, suspicious for bronchogenic carcinoma. Differen tial diagnosis includes post radiation therapy change and/or superimposed pneumonia. 2: Right lower lobe airspace consolidation most likely represents pneumonia and/or atelectasis. 3: Moderate right and small left pleural effusions. 4: Large pericardial effusion. Reviewed, dictated and finalized at location A. IMPRESSION: 1. Enlarging right upper lobe masslike consolidation, suspicious for bronchogen ic carcinoma. Differential diagnosis includes post radiation therapy change and /or superimposed pneumonia. 2: Right lower lobe airspace consolidation most likely represents pneumonia an d/or atelectasis. 3: Moderate right and small left pleural effusions. 4: Large pericardial effusion.
--- NOTE | ~2022-04-22 | XR_ITS ---
MODIFIED ESOPHAGRAM HISTORY: Witnessed choking TECHNIQUE: Modified barium esophagram was performed by speech pathologist under radiologist fluorosco pic guidance. This was recorded on tape. The exam was reviewed on 04/24/2022 10:54 CDT. The DAP fo r this procedure was 0.53 Gycm2. Fluoroscopy time is 0.8 minutes of fluoroscopy. FINDINGS: Lateral projection of the cervical spine demonstrates normal alignment. There is normal s wallowing function through all stages without evidence for penetration or aspiration.. IMPRESSION: 1: Normal swallowing function without penetration or aspiration. 2: Please refer to speech pathologist report for additional detail. Reviewed, dictated and finalized at location A.
[2022-04-22 18:08] VITALS: BP 127/73; PULSE 70; RESP 14; TEMP 36.7; O2SAT 98
--- NOTE | 2022-04-22 18:40 | ED.HEATRA ---
HPI - Head Injury General Chief complaint: Head Injury Stated complaint: fall, head injury Time Seen by Provider: 04/22/22 18:25 Source: patient Mode of arrival: ambulatory Limitations: no limitations History of Present Illness HPI Narrative: This is an 82-year-old male that presents to the emergency department after a ground-level fall today with head injury. Reports he slipped and fell forward. He did not lose consciousness. Reports a hematoma to the forehead. Also reports neck pain. Denies prodromal symptoms, vision changes, vomiting, numbness, or weakness. Related Data Home Medications Medication Instructions Recorded Confirmed Calcium 600 + D(3) 1 tablet PO DAILY 02/11/20 03/21/20 acetaminophen 325 mg tablet 650 mg PO ONCE PRN Abdominal Pain 02/11/20 03/21/20 (Tylenol) alendronate 70 mg tablet 70 mg PO WEEKLY 02/11/20 03/21/20 aspirin 81 mg chewable tablet 81 mg PO DAILY 02/11/20 02/11/20 atorvastatin 40 mg tablet 40 mg PO HS 02/11/20 03/21/20 bismuth subsalicylate 262 mg 2 tablet PO TID PRN (Drug) 02/11/20 02/11/20 tablet (Pepto-Bismol) Ingestion budesonide 3 mg 3 mg PO TID 02/11/20 02/11/20 capsule,delayed,extended release chlorthalidone 25 mg tablet 25 mg PO BID 02/11/20 03/21/20 clopidogrel 75 mg tablet 75 mg PO DAILY 02/11/20 03/21/20 diphenoxylate-atropine 2.5 2 tablet PO BID 02/11/20 03/21/20 mg-0.025 mg tablet famotidine 20 mg tablet 20 mg PO DAILY 02/11/20 02/11/20 insulin glargine 100 unit/mL (3 18 unit subcut HS 02/11/20 03/21/20 mL) subcutaneous pen (Lantus Solostar U-100 Insulin) insulin lispro 100 unit/mL 8 unit subcut AC 02/11/20 03/21/20 subcutaneous pen [id number] acid 0.4 1 tablet PO DAILY 02/11/20 03/21/20 mg-lycopene 300 mcg-lutein 250 mcg tablet (Theratrum Complete 50 Plus(lycopene,lutein)) pen needle, diabetic, safety 30 02/11/20 03/21/20 gauge x 1/3 (Novofine Autocover) cetirizine 10 mg tablet 5 mg PO DAILY 03/21/20 03/21/20 esomeprazole magnesium 40 mg 40 mg PO DAILY 03/21/20 03/21/20 capsule,delayed release magnesium oxide 400 mg PO DAILY 03/21/20 03/21/20 melatonin 3 mg tablet 3 mg PO HS PRN Sleep 03/21/20 03/21/20 mesalamine 1.2 gram tablet,delayed 4.8 g PO DAILY 03/21/20 03/21/20 release potassium chloride 10 mEq meq PO 03/21/20 tablet,extended release Allergies Allergy/AdvReac Type Severity Reaction Status Date / Time No Known Allergies Allergy Verified 03/21/20 13:19 Review of Systems Review of Systems: CONSTITUTIONAL: Denies fever EYES: Denies visual changes GASTROINTESTINAL: Denies vomiting MUSCULOSKELETAL: Reports joint pain and myalgia. Denies back pain NEUROLOGIC: Reports headache. Denies numbness, or weakness. All systems reviewed & are unremarkable except as noted in HPI and below PMFSH Past Medical History Medical History (Updated 04/22/22 @ 23:48 by Stacia Mendenhall PA-C) Chronic ulcerative colitis Colitis Diabetes History of [place] (myocardial infarction) no stents The daughter tells me that the patient had a cardiac catheterization and was clear. So it is questionable History of pelvic fracture Peripheral arterial disease Peripheral vascular disease Surgical History Surgical History H/O rectal polypectomy History of esophagogastroduodenoscopy (EGD) S/P colonoscopic polypectomy S/P insertion of iliac artery stent bilaterally Family History Family History Mother Cerebrovascular accident Diabetes mellitus Father Lung cancer Emphysema lung Social History Social History Social History: the patient currently resides at [facility]. The patient smoked up until just a couple years ago. The patient has 2 children. But the 1 when she was 22 years old. He is . His daughter Jamila is a durable power real estate associate attorney for [facility]
[2022-04-22 20:20] LABS: Basophils Percent Auto 0.2 % (0.2-1.2); Hematocrit 32.1 % (42.0-52.0); Hemoglobin 10.5 g/dL (14.0-18.0); Immature Granulocyte Absolute 0.09 K/mm3 (0.00-0.031); Immature Granulocyte Percent A 0.8 % (0-0.5); Lymphocytes Absolute Auto 0.43 K/mm3 (0.9-3.2); Lymphocytes Percent Auto 3.7 % (18.3-44.2); Mean Corpuscular HGB Conc 32.7 g/dl (32-36); Mean Corpuscular Hemoglobin 26.6 pg (26-34); Mean Corpuscular Volume 81.3 fl (80-100); Mean Platelet Volume 8.6 fl (7.4-10.4); Monocytes Absolute Auto 1.1 K/mm3 (0.1-0.6); Monocytes Percent Auto 9.4 % (2.6-8.5); Neutrophils Absolute Auto 9.9 K/mm3 (1.3-6.7); Neutrophils Percent Auto 85.9 % (45.5-73.1); Platelet Count Result 353 k/mm3 (150-375); Red Blood Count 3.95 M/mm3 (4.6-6.20); Red Cell Distribution Width 14.8 % (11.5-14.5); White Blood Count 11.5 K/mm3 (4.5-10.0)
[2022-04-22 20:29] LABS: Anion Gap 11 mmol/L (8-16); Blood Urea Nitrogen 15 mg/dL (9-20); Calcium 7.5 mg/dL (8.4-10.2); Carbon Dioxide 34 mmol/L (22-30); Chloride 83 mmol/L (98-107); Estimated CRCL calculation 92 ml/min; Estimated Glomerular Filt Rate > 60; Glucose 193 mg/dL (65-110); Potassium 2.9 mmol/L (3.4-5.0); Sodium 128 mmol/L (137-145)
[2022-04-22] MEDS: POTASSIUM CHLORIDE 20 MEQ TABLET 40 MEQ PO (20:40)
[2022-04-22 22:09] VITALS: BP 166/96; PULSE 88; RESP 20; O2SAT 99
--- NOTE | 2022-04-22 22:19 | PM.IMHP ---
H&P: HPI History of Present Illness Date/Time: 04/22/22 22:19 Chief Complaint: fall Narrative: This is an 82-year-old male with past medical history significant for lung cancer, frequent falls, generalized weakness, osteoporosis, dyslipidemia, hypertension, insulin-dependent diabetes mellitus, chronic ulcerative colitis, peripheral vascular disease. patient presents today to the emergency room after he had a fall usually uses a walker which got caught while he was trying to get in the bathroom which landed him on the floor denies any loss of consciousness but heat various things on his weight down including his forehead, denies any lightheadedness, dizziness, vertigo, patient has been in his usual state of health denies any nausea, vomiting, however he has chronic diarrhea. In emergency room patient was found to be orthostatic. Preliminary workup is significant for chemistry panel sodium 128, potassium 2.9, chloride 83, bicarb 34, BUN 15, creatinine 0.6 brain atretic peptide 1610. a CT of the head was reported as: IMPRESSION: 1. Moderate nonspecific cerebral white matter disease, which likely represents chronic small vessel ischemic disease. 2. Chronic C1 ring fractures. cervical spine CT: IMPRESSION: 1. 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 2. Severe cervical spondylosis. 3. Right lung upper lobe airspace opacities, consistent with lung cancer and pneumonia versus treatment changes. 4. Right pleural effusion. a chest x-ray was reported as: IMPRESSION: 1. Moderate-sized right and small left pleural effusions. 2. Airspace opacities in right upper lobe, consistent with lung cancer and pneumonia and/or treatment changes. 3. Airspace opacities at right lung base, consistent with atelectasis versus pneumonia. 4. Cardiomegaly. Review of Systems Review of Systems: mechanical fall, close head trauma. Constitutional: Constitutional: Denies chills, Denies fever(s), Denies malaise and Reports weakness Eyes: Eyes: Denies change in vision ENT: Denies dysphagia, Denies vertigo, Denies dizziness and Denies odynophagia Cardiovascular: Cardiovascular: Denies chest pain, Reports leg edema, Denies lightheadedness, Denies palpitations and Denies dyspnea on exertion Respiratory: Respiratory: Denies chest congestion and Denies cough Gastrointestinal: Gastrointestinal: Denies abdominal pain, Denies dyspepsia, Denies heartburn, Reports diarrhea, Denies nausea and Denies vomiting Genitourinary: Genitourinary: Denies dysuria Musculoskeletal: Musculoskeletal: Denies limited range of motion Integumentary/Breasts: Skin/Breast: Denies rash Neurologic: Denies vertigo, Denies dizziness, Denies focal weakness and Denies Sensory deficit (Neuro) Psychiatric: Psychiatric: Reports no additional psychiatric complaints and Reports as per HPI Endocrine: Endocrine: Denies cold intolerance, Denies flushing, Denies heat intolerance, Denies polyphagia, Denies polydipsia and Denies palpitations Hematologic/Lymphatic: Hematologic/Lymphatic: Reports no additional hematologic/lymphatic complaints and Reports as per HPI Allergic/Immunologic: Allergic/Immunologic: Reports no additional allergic/immunologic complaints and Reports as per HPI PMFSH Past Medical History Medical History (Updated 04/23/22 @ 02:42 by Trell Massey MD) Chronic ulcerative colitis Colitis Diabetes History of SC (myocardial infarction) no stents The daughter tells me that the patient had a cardiac catheterization and was clear. So it is questionable History of pelvic fracture Peripheral arterial disease Peripheral vascular disease Surgical History Surgical History H/O rectal polypectomy History of esophagogastroduodenoscopy (EGD) S/P colonoscopic polypectomy S/P insertion of iliac artery stent bilaterally Family History Family History (Reviewed 04/23/22 @ 00:36 by Amelia
[2022-04-22 22:36] LABS: NT Pro B Type Natriuretic Pept 1610 pg/mL (5-100)
[2022-04-22 23:41] LABS: Influenza A QL RT-PCR Negative (Negative); Influenza B QL RT-PCR Negative (Negative); RSV RNA, RT-PCR Negative (Negative); SARS-CoV-2 RNA PCR Negative
--- NOTE | 2022-04-23 00:34 | ADMGEN ---
This patient, Mikey Yoo, was admitted to Medical Room 348-. Patient/family oriented to hospital policies and general routines including ID bracelet, bed and alarms, visiting hours, pain management, procedures, bathroom and other care routines, personal items, smoking policy, room service/diet, and visiting hours. Information on how to activate the Rapid Response Team has been discussed. Patient/Family are encouraged to report perceived risks to care and to ask questions if they do not understand what they are told or what they should do.
[2022-04-23 00:46] VITALS: BMI 25.0
[2022-04-23 00:55] VITALS: BP 139/69
[2022-04-23] MEDS: SODIUM CHLORIDE 0.9% IV 1,000 ML 999 ML IV CONT (03:02)
[2022-04-23] MEDS: POTASSIUM CHLORIDE INJ 40 MEQ in SODIUM CHLORIDE 0.9% IV 500 ML 130 MEQ IVPB (03:02)
[2022-04-23 04:00] VITALS: BP 149/77; PULSE 94; RESP 18; TEMP 36.4; O2SAT 94
[2022-04-23 05:50] LABS: Basophils Percent Auto 0.4 % (0.2-1.2); Eosinophils Percent Auto 0.1 % (0-4.4); Hematocrit 30.2 % (42.0-52.0); Hemoglobin 9.9 g/dL (14.0-18.0); Immature Granulocyte Absolute 0.06 K/mm3 (0.00-0.031); Immature Granulocyte Percent A 0.8 % (0-0.5); Lymphocytes Absolute Auto 0.49 K/mm3 (0.9-3.2); Lymphocytes Percent Auto 6.4 % (18.3-44.2); Mean Corpuscular HGB Conc 32.8 g/dl (32-36); Mean Corpuscular Hemoglobin 26.9 pg (26-34); Mean Corpuscular Volume 82.1 fl (80-100); Mean Platelet Volume 8.7 fl (7.4-10.4); Monocytes Percent Auto 13.5 % (2.6-8.5); Neutrophils Percent Auto 78.8 % (45.5-73.1); Platelet Count Result 319 k/mm3 (150-375); Red Blood Count 3.68 M/mm3 (4.6-6.20); Red Cell Distribution Width 14.9 % (11.5-14.5); White Blood Count 7.6 K/mm3 (4.5-10.0)
[2022-04-23 06:01] LABS: Alanine Aminotransferase 43 U/L (6-50); Albumin Level 2.8 g/dL (3.5-5.1); Alkaline Phosphatase 85 U/L (38-126); Anion Gap 11 mmol/L (8-16); Aspartate Amino Transferase 36 U/L (17-59); Blood Urea Nitrogen 12 mg/dL (9-20); Calcium 7.3 mg/dL (8.4-10.2); Carbon Dioxide 33 mmol/L (22-30); Chloride 82 mmol/L (98-107); Estimated CRCL calculation 109 ml/min; Estimated Glomerular Filt Rate > 60; Glucose 320 mg/dL (65-110); Magnesium 1.9 mg/dL (1.6-2.3); Potassium 3.5 mmol/L (3.4-5.0); Sodium 126 mmol/L (137-145)
--- NOTE | 2022-04-23 08:10 | PM.IMPN ---
Progress Note: A&P Assessment and Plan (1) Pneumonia: Qualifiers: Laterality: right Lung location: lower lobe of lung Pneumonia type: due to unspecified organism Qualified Code(s): J18.9 - Pneumonia, unspecified organism Code(s): J18.9 - Pneumonia, unspecified organism Status: Acute Assessment and Plan: possible pneumonia, continue Rocephin and azithromycin check CT chest due to history of lung cancer and atypical presentation of pneumonia on chest x-ray (2) Pleural effusion: Code(s): J90 - Pleural effusion, not elsewhere classified Status: Acute Assessment and Plan: check CT chest (3) Head injury: Qualifiers: Encounter type: initial encounter Qualified Code(s): S09.90XA - Unspecified injury of head, initial encounter Code(s): S09.90XA - Unspecified injury of head, initial encounter Status: Acute Assessment and Plan: stable, no fracture, CT head negative MRI pending (4) Acute hypokalemia: Code(s): E87.6 - Hypokalemia Status: Acute Assessment and Plan: stable, monitor (5) Chronic hyponatremia: Code(s): E87.1 - Hypo-osmolality and hyponatremia Status: Acute Assessment and Plan: worsened with IVF, will trial fluid restriction for possible SIADH (6) Chronic ulcerative colitis: Qualifiers: Digestive disease complication type: without complication Ulcerative colitis location: unspecified ulcerative colitis location Qualified Code(s): K51.90 - Ulcerative colitis, unspecified, without complications Code(s): K51.90 - Ulcerative colitis, unspecified, without complications Status: Chronic Assessment and Plan: continue mesalamine, stable (7) Diabetes: Qualifiers: Chronic kidney disease stage: stage 3 (moderate) Diabetes mellitus complication detail: with chronic kidney disease Diabetes mellitus complication status: with kidney complications 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 insulin use: with usp use Diabetes mellitus type: type 2 Qualified Code(s): E11.22 - Type 2 diabetes mellitus with diabetic chronic kidney disease; N18.3 - Chronic kidney disease, stage 3 (moderate); Z79.4 - care home (current) use of insulin Code(s): E11.9 - Type 2 diabetes mellitus without complications Status: Chronic Assessment and Plan: Accu-Cheks AC and HS continue insulin (8) Gait abnormality: Code(s): R26.9 - Unspecified abnormalities of gait and mobility Status: Acute Assessment and Plan: patient uses walker fall precautions PT OT consult (9) Facial droop: Code(s): R29.810 - Facial weakness Status: Acute Assessment and Plan: possible CVA, neuro consult pending MRI pending (10) Dysphagia: Code(s): R13.10 - Dysphagia, unspecified Status: Acute Assessment and Plan: coughing with eating/drinking, new onset over the last few weeks since facial droop developed, consult ST for eval for possible aspiration risk Plan DVT prophylaxis with SCDs GI prophylaxis not indicated Code status DNR Subjective Date/time seen: 04/23/22 08:10 Interval history: No overnight events noted. No chest pain or shortness of breath. No nausea, vomiting or diarrhea. No fevers or chills. Daughter present at bedside, visits patient daily at his assisted living facility and states that patient had a sudden onset of facial droop and some balance issues noted over the last few weeks. She also noted he has been coughing with food/drinks recently. Family is concerned if patient had a stroke. Additionally, they were told in the ER that patient had pneumonia and are worried if his lung cancer has returned. Review of Systems Review of Systems: 12 point review of systems was assessed and was negative except as noted in the HPI Exam Narrative: General: No acute distress, alert and oriented per baseline HEENT: A
[2022-04-23 08:17] LABS: Glucose Point of Care 333 mg/dl (65-105)
[2022-04-23] MEDS: INSULIN ASPART (*BKC) 100 UNITS/ML 8 UNITS SUB-Q ×3 (09:07→17:25)
[2022-04-23] MEDS: MULTIVITAMINS /C LUTEIN (CENTRUM SILVER) TABLET *BKC 1 TAB PO (09:08)
[2022-04-23] MEDS: MAGNESIUM OXIDE 400 MG TABLET PO (09:08)
[2022-04-23] MEDS: LORATADINE 10 MG TABLET PO (09:08)
[2022-04-23] MEDS: ASPIRIN 81 MG CHEWABLE TABLET PO (09:08)
[2022-04-23] MEDS: PANTOPRAZOLE 40 MG TABLET PO (09:08)
[2022-04-23 12:17] LABS: Glucose Point of Care 320 mg/dl (65-105)
[2022-04-23] MEDS: ACETAMINOPHEN 325 MG TABLET 650 MG PO (12:30)
[2022-04-23] MEDS: CHLORTHALIDONE 12.5 MG TAB PO (12:31)
[2022-04-23] MEDS: POTASSIUM CHLORIDE 10 MEQ TABLET.ER PO (12:53)
[2022-04-23 14:00] VITALS: BP 144/76; PULSE 97; RESP 16; TEMP 36.3; O2SAT 92
[2022-04-23 17:19] LABS: Glucose Point of Care 265 mg/dl (65-105)
[2022-04-23] MEDS: INSULIN GLARGINE (*BKC) 100 UNITS/ML 18 UNITS SUB-Q (20:01)
[2022-04-23 20:14] VITALS: BP 149/82; PULSE 92; RESP 20; TEMP 37.1; O2SAT 92
[2022-04-23 20:17] LABS: Glucose Point of Care 231 mg/dl (65-105)
[2022-04-23] MEDS: ATORVASTATIN 40 MG TABLET PO (20:59)
[2022-04-24 05:40] LABS: Basophils Percent Auto 0.4 % (0.2-1.2); Eosinophils Absolute Auto 0.1 K/mm3 (0-0.3); Eosinophils Percent Auto 0.6 % (0-4.4); Hematocrit 30.5 % (42.0-52.0); Hemoglobin 9.9 g/dL (14.0-18.0); Immature Granulocyte Absolute 0.08 K/mm3 (0.00-0.031); Lymphocytes Absolute Auto 0.52 K/mm3 (0.9-3.2); Lymphocytes Percent Auto 6.3 % (18.3-44.2); Mean Corpuscular HGB Conc 32.5 g/dl (32-36); Mean Corpuscular Hemoglobin 26.1 pg (26-34); Mean Corpuscular Volume 80.3 fl (80-100); Monocytes Absolute Auto 0.9 K/mm3 (0.1-0.6); Monocytes Percent Auto 11.4 % (2.6-8.5); Neutrophils Absolute Auto 6.6 K/mm3 (1.3-6.7); Neutrophils Percent Auto 80.3 % (45.5-73.1); Platelet Count Result 355 k/mm3 (150-375); Red Cell Distribution Width 14.8 % (11.5-14.5); White Blood Count 8.3 K/mm3 (4.5-10.0)
[2022-04-24 05:44] VITALS: BP 140/77; PULSE 89; RESP 20; TEMP 37; O2SAT 91
[2022-04-24 05:45] LABS: Alanine Aminotransferase 51 U/L (6-50); Albumin Level 2.8 g/dL (3.5-5.1); Alkaline Phosphatase 94 U/L (38-126); Anion Gap 6 mmol/L (8-16); Aspartate Amino Transferase 45 U/L (17-59); Bilirubin,Total 0.9 mg/dL (0.2-1.3); Blood Urea Nitrogen 10 mg/dL (9-20); Calcium 7.3 mg/dL (8.4-10.2); Carbon Dioxide 33 mmol/L (22-30); Chloride 85 mmol/L (98-107); Estimated CRCL calculation 93 ml/min; Estimated Glomerular Filt Rate > 60; Glucose 236 mg/dL (65-110); Potassium 3.2 mmol/L (3.4-5.0); Sodium 124 mmol/L (137-145)
[2022-04-24 08:33] LABS: Glucose Point of Care 284 mg/dl (65-105)
[2022-04-24] MEDS: MAGNESIUM OXIDE 400 MG TABLET PO (08:54)
[2022-04-24] MEDS: INSULIN ASPART (*BKC) 100 UNITS/ML 8 UNITS SUB-Q ×3 (08:54→18:30)
[2022-04-24] MEDS: MULTIVITAMINS /C LUTEIN (CENTRUM SILVER) TABLET *BKC 1 TAB PO (08:54)
[2022-04-24] MEDS: LORATADINE 10 MG TABLET PO (08:54)
[2022-04-24] MEDS: CHLORTHALIDONE 12.5 MG TAB PO (08:54)
[2022-04-24] MEDS: PANTOPRAZOLE 40 MG TABLET PO (08:54)
[2022-04-24] MEDS: ASPIRIN 81 MG CHEWABLE TABLET PO (08:54)
[2022-04-24] MEDS: POTASSIUM CHLORIDE 10 MEQ TABLET.ER PO (08:54)
--- NOTE | 2022-04-24 09:14 | PM.IMPN ---
Progress Note: A&P Assessment and Plan (1) Pneumonia: Qualifiers: Laterality: right Lung location: lower lobe of lung Pneumonia type: due to unspecified organism Qualified Code(s): J18.9 - Pneumonia, unspecified organism Code(s): J18.9 - Pneumonia, unspecified organism Status: Suspected Assessment and Plan: questionable pneumonia on CXR, was started on rocephin/azithromycin for CAP, but risk of aspiration is possible d/t coughing with liquids, will d/c rocephin/azithromycin in favor of unasyn, monitor, doubt pneumonia is etiology of CXR abnormality, cont abx for now (2) Pericardial effusion: Code(s): I31.39 - Other pericardial effusion (noninflammatory) Status: Acute Assessment and Plan: noted on chest CT, echo ordered and pending, concern for malignant effusion is high, monitor for signs of tamponade, consider cardiology consult pending echo results (3) Pleural effusion: Code(s): J90 - Pleural effusion, not elsewhere classified Status: Acute Assessment and Plan: moderate right and small left pleural effusions, unsure of etiology, consider pulm consult if dx not identified with other workup and/or it worsens instead of improving (4) Head injury: Qualifiers: Encounter type: initial encounter Qualified Code(s): S09.90XA - Unspecified injury of head, initial encounter Code(s): S09.90XA - Unspecified injury of head, initial encounter Status: Resolved Assessment and Plan: stable, no fracture, CT head negative (5) Acute hypokalemia: Code(s): E87.6 - Hypokalemia Status: Acute Assessment and Plan: replace and recheck (6) Chronic hyponatremia: Code(s): E87.1 - Hypo-osmolality and hyponatremia Status: Acute Assessment and Plan: worsened with IVF, will trial fluid restriction for possible SIADH continues to worsen despite fluid restriction, unsure of etiology, patient does have a long history of chronic hyponatremia with an acute worsening noted now, baseline usually 128-131, down to 124 today nephro consult pending, hold chlorthalidone (7) Chronic ulcerative colitis: Qualifiers: Digestive disease complication type: without complication Ulcerative colitis location: unspecified ulcerative colitis location Qualified Code(s): K51.90 - Ulcerative colitis, unspecified, without complications Code(s): K51.90 - Ulcerative colitis, unspecified, without complications Status: Chronic Assessment and Plan: continue mesalamine, stable (8) Diabetes: Qualifiers: Chronic kidney disease stage: stage 3 (moderate) Diabetes mellitus complication detail: with chronic kidney disease Diabetes mellitus complication status: with kidney complications Diabetes mellitus chcf insulin use: with chcf use Diabetes mellitus type: type 2 Qualified Code(s): E11.22 - Type 2 diabetes mellitus with diabetic chronic kidney disease; N18.3 - Chronic kidney disease, stage 3 (moderate); 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 Code(s): E11.9 - Type 2 diabetes mellitus without complications Status: Chronic Assessment and Plan: Accu-Cheks AC and HS continue insulin a1c pending (9) Gait abnormality: Code(s): R26.9 - Unspecified abnormalities of gait and mobility Status: Acute Assessment and Plan: patient uses walker fall precautions PT OT consult (10) Facial droop: Code(s): R29.810 - Facial weakness Status: Acute Assessment and Plan: possible CVA, neuro consult pending MRI pending (11) Dysphagia: Code(s): R13.10 - Dysphagia, unspecified Status: Acute Assessment and Plan: coughing with eating/drinking, new onset over the last few weeks since facial droop developed, consult ST for eval for possible aspiration risk MBS ordered and pending today (12) Lung mass: Code(s): R91.8 - Other
--- NOTE | 2022-04-24 10:12 | WPDNEURCNPN ---
Assessment and Plan Assessment and plan (1) Ptosis: Code(s): H02.409 - Unspecified ptosis of unspecified eyelid Status: Acute (2) Dysphagia: Code(s): R13.10 - Dysphagia, unspecified Status: Acute (3) Gait abnormality: Code(s): R26.9 - Unspecified abnormalities of gait and mobility Status: Acute (4) Pneumonia: Qualifiers: Laterality: right Lung location: lower lobe of lung Pneumonia type: due to unspecified organism Qualified Code(s): J18.9 - Pneumonia, unspecified organism Code(s): J18.9 - Pneumonia, unspecified organism Status: Suspected (5) Head injury: Qualifiers: Encounter type: initial encounter Qualified Code(s): S09.90XA - Unspecified injury of head, initial encounter Code(s): S09.90XA - Unspecified injury of head, initial encounter Status: Resolved Plan Mr. Yoo is an 82 year old male with a history of lung cancer, DM, HLD, HTN, peripheral vascular disease, carotid stenosis who presented after fall, found to have pneumonia. He also has a recent history of facial asymmetry, dysphagia, and gait instability. Exam was significant for right sided ptosis, with rest of facial muscles intact. Differential includes stroke vs metastatic disease vs vascular malformation vs myasthenia gravis. - MRI brain has been ordered, results pending - If imaging is negative, will need to obtain myasthenia gravis panel Consult date: 04/24/22 Reason for consult: Facial droop, dysphagia HPI: Mikey Yoo is a 82 year old male with a history of lung cancer, diabetes, HLD, HTN, peripheral arterial disease who presented on 04/22 after sustaining a fall resulting in him hitting his head. He denies any loss of consciousness at the time. He was taken to [place] [facility] where he was found to have positive orthostatics. CT head was negative. Labs were significant for hyponatremia (128). CXR was concerning for pneumonia with pleural effusion. He was started on antibiotics and admitted. Daughter reported that patient developed facial droop and balance issues several weeks ago. He has also been having difficulties with swallowing. He is on ASA and Lipitor 40mg. Per daughter, symptoms starred in February. They noticed that he was having trouble getting words out, coughing more, and difficulty with eating. He had no other focal symptoms. He has a history of bilateral carotid stenosis, he underwent intervention for the left side. Review of Systems Constitutional: Constitutional: Reports no additional constitutional complaints Eyes: Comments: h/o cataracts ENT: Reports Normal hearing present and Reports dysphagia Cardiovascular: Cardiovascular: Reports no additional cardiovascular complaints Respiratory: Respiratory: Reports no additional respiratory complaints Gastrointestinal: Gastrointestinal: Reports diarrhea Genitourinary: Genitourinary: Reports no additional male genitourinary complaints Musculoskeletal: Musculoskeletal: Reports no additional musculoskeletal complaints Integumentary/Breasts: Skin/Breast: Reports system reviewed and no additional complaints, except as docu Neurologic: Reports as per HPI Psychiatric: Psychiatric: Reports no additional psychiatric complaints PMFSH Past Medical History Medical History BPH (benign prostatic hyperplasia) Chronic ulcerative colitis Colitis Diabetes Generalized edema History of IA (myocardial infarction) no stents The daughter tells me that the patient had a cardiac catheterization and was clear. So it is questionable History of pelvic fracture Peripheral arterial disease Peripheral vascular disease Surgical History Surgical History H/O rectal polypectomy History of esophagogastroduodenoscopy (EGD) S/P colonoscopic polypectomy S/P insertion of iliac artery stent bilaterally Family Histor
[2022-04-24 10:46] LABS: Hemoglobin A1C 9.3 % (<5.7)
--- NOTE | 2022-04-24 11:18 | PM.CNNEP ---
Assessment and Plan Assessment and plan (1) Chronic hyponatremia: Code(s): E87.1 - Hypo-osmolality and hyponatremia Status: Acute Assessment and Plan: the patient has chronic hyponatremia, all the way back to January of 2020. Now the patient's sodium is a little worse. Etiology of hyponatremia could be 1 of many or combination. The patient is on chlorthalidone and on pantoprazole both of which can do this. He is on chlorthalidone for edema. We could use once a day Lasix and had have less of an affect on the sodium if he still needs a diuretic but for now he is off the diuretic. We can use Pepcid instead of pantoprazole; Pepcid would not affect the sodium. Patient could have a hormonal issues such as hypothyroidism or adrenal insufficiency. Will check this. The patient has a solitary pulmonary nodule but I do not think this is been going on for very long and unless metastatic it would be an unusual cause for hyponatremia , especially since if it was metastatic we would have known about it before this. Brain lesions can do this but he had a CT of the brain which was unremarkable. Pulmonary lesions can do this as well. He does have pneumonia and a pleural effusion and this may be why it is a little worse now. If this is SIADH, then saline alone might make the sodium level come down. He also drinks a lot of fluid at home but is not drinking that much fluid here. This could make SIADH of any cause more pronounced because of the decreased water excretory potential. Finally he has chronic diarrhea. This could cause intermittent dehydration which can cause the sodium to get worse as well. At this point will get a TSH, cortisol, serum and urine osmolality, SPE, and put on a fluid restriction of a 1000cc. Long discussion with the patient and daughter and granddaughter. (2) Chronic ulcerative colitis: Qualifiers: Ulcerative colitis location: unspecified ulcerative colitis location Digestive disease complication type: without complication Qualified Code(s): K51.90 - Ulcerative colitis, unspecified, without complications Code(s): K51.90 - Ulcerative colitis, unspecified, without complications Status: Chronic Assessment and Plan: This is causing longstanding diarrhea. (3) Lung mass: Code(s): R91.8 - Other nonspecific abnormal finding of lung field Status: Acute Assessment and Plan: The patient has a solitary pulmonary nodule which is getting radiation therapy. (4) BPH (benign prostatic hyperplasia): Code(s): N40.0 - Benign prostatic hyperplasia without lower urinary tract symptoms Status: Acute Assessment and Plan: It sounds like his prostatism has worsened lately. This can be uncomfortable with symptoms but also can result in more frequent bladder infections. Will start tamsulosin. (5) Facial droop: Code(s): R29.810 - Facial weakness Status: Acute Assessment and Plan: Neurology is seeing the patient. Through droop does not seem very prominent now at all. (6) Pneumonia: Qualifiers: Laterality: right Lung location: lower lobe of lung Pneumonia type: due to unspecified organism Qualified Code(s): J18.9 - Pneumonia, unspecified organism Code(s): J18.9 - Pneumonia, unspecified organism Status: Suspected Assessment and Plan: The patient is getting antibiotic (7) Diabetes: Qualifiers: Diabetes mellitus type: type 2 Diabetes mellitus rn long term care insulin use: with retirement use Diabetes mellitus complication status: with kidney complications Diabetes mellitus complication detail: with chronic kidney disease Chronic kidney disease stage: stage 3 (moderate) Qualified Code(s): E11.22 - Type 2 diabetes mellitus with diabetic chronic kidney disease; N18.3 - Chronic kidney disease, stage 3 (moderate); Z79.4 - long-term (current) use of insulin Code(s):
--- NOTE | 2022-04-24 11:19 | PCSTNOTE ---
Bedside swallowing evaluation and modified barium swallow completed. No penetration or aspiration observed. Swallowing functional abilities within functional limits. Recommend regular diet texture and thin liquids. No speech therapy recommended. Thank you for the referral of this patient.
[2022-04-24 12:16] LABS: Glucose Point of Care 202 mg/dl (65-105)
[2022-04-24 12:45] LABS: Creatinine Urine 80.3 mg/dL; Total Protein Urine Random 40 mg/dL
[2022-04-24 12:49] LABS: Sodium Urine Random 81 meq/L
[2022-04-24] MEDS: AMPICILLIN SULB 3 GM/NS 100 ML 3 GM/100 ML VIAL IVPB ×2 (12:51→17:34)
[2022-04-24] MEDS: TAMSULOSIN HCL 0.4 MG CAPSULE PO (12:51)
[2022-04-24] MEDS: POTASSIUM CHLORIDE 20 MEQ TABLET 40 MEQ PO (12:51)
[2022-04-24 13:44] LABS: Thyroid Stimulating Hormone Reflex 0.776 uIU/mL (0.465-4.68)
[2022-04-24 14:00] VITALS: BP 143/64; PULSE 86; RESP 18; TEMP 36.8; O2SAT 93
[2022-04-24 17:18] LABS: Glucose Point of Care 155 mg/dl (65-105)
[2022-04-24 20:43] LABS: Glucose Point of Care 122 mg/dl (65-105)
[2022-04-24] MEDS: FAMOTIDINE 20 MG TABLET PO (21:16)
[2022-04-24] MEDS: ATORVASTATIN 40 MG TABLET PO (21:16)
[2022-04-24] MEDS: INSULIN GLARGINE (*BKC) 100 UNITS/ML 18 UNITS SUB-Q (21:17)
[2022-04-24 22:00] VITALS: BP 132/72; PULSE 98; RESP 20; TEMP 36.9; O2SAT 93
--- NOTE | 2022-04-25 | ECHO_ITS ---
Patient Info Name: Mikey Yoo Age: 82 years : 1940 Gender: Male Ht: 73 in Wt: 189 lbs BSA: 2.11 m2 HR: 97 bpm BP: 121 / 72 mmHg Heart Rhythm: Sinus Rhythm Technical Quality: Fair Exam Date: 04/25/2022 9:55 AM Exam Location: [facility] Pulmonary Patient Status: Inpatient Admit Date: 04/23/2022 Staff Ordering Physician: Ning Hernandez DO Forensic Sergeant: Chel Martinez RDCS Attending Provider: Sekou Klein MD Referring Physician: Mary DIAZ; Exam Type: CA echo doppler color flow Study Info Indications I31.3 - Pericardial effusion (noninflammatory) Complete two-dimensional, color flow and Doppler transthoracic echocardiogram is performed. Summary 1. Complete two-dimensional, color flow and Doppler transthoracic echocardiogram is performed. 2. Normal left and right ventricular size and systolic function. 3. Mild left atrial enlargement. 4. No significant valvular disease. 5. Small circumferential pericardial effusion. Left Ventricle Left ventricular chamber dimension is normal. Left ventricular systolic function is normal, estimated at 50-55%. The left ventricular diastolic function is normal. Right Ventricle Right ventricular chamber dimension is normal. Left Atria Left atrial chamber dimension is mildly enlarged. Right Atria Right atrial chamber dimension is normal. Aortic Valve The aortic valve is trileaflet. There is mild aortic valve sclerosis. Pulmonic Valve The pulmonic valve is not well visualized. Mitral Valve The mitral valve has normal leaflets. Tricuspid Valve The tricuspid valve leaflets are normal. Pericardium/Pleural The pericardium appears normal. There is small circumferential pericardial effusion. Aorta The aortic root size at the sinus of Valsalva is normal. Left Ventricular Outflow Tract Name Value Normal LVOT 2D LVOT Diameter 1.9 cm LVOT Doppler LVOT Peak Gradient 4 mmHg LVOT Mean Gradient 4 mmHg LVOT VTI 24 cm LVOT VTI/AV VTI Ratio 0.9 LVOT Stroke Volume 72 ml LVOT CO 5.0 l/min LVOT CI 2.4 l/min/m2 Pulmonic Valve Name Value Normal RVOT Doppler RVOT Peak Gradient 2 mmHg PV Doppler PV Peak Gradient 2 mmHg Mitral Valve Name Value Normal MV Doppler MV Decel [place] 580 cm/s2
[2022-04-25] MEDS: AMPICILLIN SULB 3 GM/NS 100 ML 3 GM/100 ML VIAL IVPB ×4 (00:13→17:43)
[2022-04-25 06:00] VITALS: BP 121/72; PULSE 94; RESP 20; TEMP 36.9; O2SAT 94
[2022-04-25 06:17] LABS: Basophils Percent Auto 0.5 % (0.2-1.2); Eosinophils Absolute Auto 0.1 K/mm3 (0-0.3); Eosinophils Percent Auto 0.8 % (0-4.4); Hematocrit 29.7 % (42.0-52.0); Hemoglobin 9.6 g/dL (14.0-18.0); Immature Granulocyte Absolute 0.05 K/mm3 (0.00-0.031); Immature Granulocyte Percent A 0.7 % (0-0.5); Lymphocytes Absolute Auto 0.64 K/mm3 (0.9-3.2); Lymphocytes Percent Auto 8.3 % (18.3-44.2); Mean Corpuscular HGB Conc 32.3 g/dl (32-36); Mean Corpuscular Hemoglobin 25.8 pg (26-34); Mean Corpuscular Volume 79.8 fl (80-100); Mean Platelet Volume 8.3 fl (7.4-10.4); Monocytes Percent Auto 12.7 % (2.6-8.5); Neutrophils Absolute Auto 5.9 K/mm3 (1.3-6.7); Platelet Count Result 345 k/mm3 (150-375); Red Blood Count 3.72 M/mm3 (4.6-6.20); Red Cell Distribution Width 15.1 % (11.5-14.5); White Blood Count 7.7 K/mm3 (4.5-10.0)
[2022-04-25 06:28] LABS: Alanine Aminotransferase 51 U/L (6-50); Albumin Level 2.8 g/dL (3.5-5.1); Alkaline Phosphatase 86 U/L (38-126); Anion Gap 11 mmol/L (8-16); Aspartate Amino Transferase 44 U/L (17-59); Bilirubin,Total 0.9 mg/dL (0.2-1.3); Blood Urea Nitrogen 9 mg/dL (9-20); Calcium 7.3 mg/dL (8.4-10.2); Carbon Dioxide 32 mmol/L (22-30); Chloride 84 mmol/L (98-107); Estimated CRCL calculation 93 ml/min; Estimated Glomerular Filt Rate > 60; Glucose 123 mg/dL (65-110); Phosphorus 2.8 mg/dL (2.5-4.5); Potassium 2.9 mmol/L (3.4-5.0); Sodium 127 mmol/L (137-145)
[2022-04-25 08:52] LABS: Glucose Point of Care 141 mg/dl (65-105)
[2022-04-25] MEDS: POTASSIUM CHLORIDE 10 MEQ TABLET.ER PO (09:27)
[2022-04-25] MEDS: ASPIRIN 81 MG CHEWABLE TABLET PO (09:27)
[2022-04-25] MEDS: TAMSULOSIN HCL 0.4 MG CAPSULE PO (09:27)
[2022-04-25] MEDS: MAGNESIUM OXIDE 400 MG TABLET PO (09:27)
[2022-04-25] MEDS: LORATADINE 10 MG TABLET PO (09:28)
[2022-04-25] MEDS: MULTIVITAMINS /C LUTEIN (CENTRUM SILVER) TABLET *BKC 1 TAB PO (09:28)
[2022-04-25] MEDS: FAMOTIDINE 20 MG TABLET PO ×2 (09:28→20:47)
[2022-04-25] MEDS: INSULIN ASPART (*BKC) 100 UNITS/ML 8 UNITS SUB-Q ×3 (09:28→17:43)
--- NOTE | 2022-04-25 11:36 | PM.IMPN ---
Progress Note: A&P Assessment and Plan (1) Dysphagia: Code(s): R13.10 - Dysphagia, unspecified Status: Acute Assessment and Plan: speech therapy consulted. swallow evaluation done. No aspiration noted. Patient on regular diet (2) Pericardial effusion: Code(s): I31.39 - Other pericardial effusion (noninflammatory) Status: Acute Assessment and Plan: echo done, report pending (3) Pneumonia: Qualifiers: Laterality: right Lung location: lower lobe of lung Pneumonia type: due to unspecified organism Qualified Code(s): J18.9 - Pneumonia, unspecified organism Code(s): J18.9 - Pneumonia, unspecified organism Status: Suspected Assessment and Plan: on IV Unasyn Subjective Date/time seen: 04/25/22 11:36 no overnight events. Exam Const: General: cooperative and comfortable Orientation/consciousness: patient oriented x3 HENMT: Head: normal to inspection Mouth: Yes Normal oral and palatal mucosa present Eyes: General: appearance normal, both eyes and all related structures Resp: Effort & Inspection: normal respiratory effort Auscultation: clear to auscultation bilaterally Cardio: Rate: regular rate Rhythm: regular rhythm Heart sounds: S1 normal heart sound present and S2 normal heart sound present GI: GI Palp: Yes Soft to palpation Auscultation: normal bowel sounds Skin: General skin exam: normal color and no rashes or lesions noted Neuro: General: patient oriented x3, no focal motor deficits and CN's II-XI intact bilaterally Speech: normal speech Extrem: General: full ROM Psych: Appearance: grossly normal Objective Data Vital Signs Vital Signs: Vital Signs - 24 hr 04/24/22 14:00 04/24/22 22:00 04/24/22 20:00 Temperature 98.2 F 98.4 F Pulse Rate 86 98 Respiratory Rate 18 20 Blood Pressure 143/64 H 132/72 Pulse Oximetry 93 93 Oxygen Delivery Room Air 04/25/22 06:00 Temperature 98.4 F Pulse Rate 94 Respiratory Rate 20 Blood Pressure 121/72 Pulse Oximetry 94 Oxygen Delivery Intake/Output Intake/Output: Intake & Output 04/22/22 04/23/22 04/24/22 04/25/22 23:59 23:59 23:59 23:59 Intake Total 300 1520 1540 340 Output Total 200 Balance 300 1520 1540 140 Meds/Results Medications: Active Medications Generic Name Dose Route Start Last Admin Trade Name Jorgeq PRN Reason Stop Dose Admin Acetaminophen 650 mg 04/23/22 10:32 04/23/22 12:30 Acetaminophen 325 Mg Tablet PO 650 mg Q4H PRN Administration Mild Pain (1-3) or Fever Aspirin 81 mg 04/23/22 09:00 04/25/22 09:27 Aspirin 81 Mg Chewable Tablet PO 81 mg DAILY HERNESOT Administration Atorvastatin Calcium 40 mg 04/23/22 21:00 04/24/22 21:16 Atorvastatin 40 Mg Tablet PO 40 mg HS HERNESTO Administration Calcium Carbonate 200 mg 04/23/22 02:07 Calcium Carbonate (Tums) 500 Mg (200 Mg Elemental) PO Q6H PRN Indigestion Calcium Carbonate 500 mg 04/23/22 09:00 04/25/22 09:28 Calcium/Vitamin D 500 Mg Tablet PO 500 mg QAM HERNESTO Administration Famotidine 20 mg 04/24/22 21:00 04/25/22 09:28 Famotidine 20 Mg Tablet PO 20 mg Q12HR HERNESTO Administration Ampicillin Sodium/Sulbactam Sodium 3 gm in 100 mls @ 200 mls/hr 04/24/22 12:00 04/25/22 06:02 Unasyn 3 Gm/Ns 100 Ml IVPB 200 mls/hr Q6HR HERNESTO Administration Insulin Aspart 8 units 04/23/22 08:00 04/25/22 09:28 Insulin Aspart (*Bkc) 100 Units/Ml SUB-Q 8 units TIDWM HERNESTO Administration Insulin Glargine 18 units 04/23/22 21:00 04/24/22 21:17 Insulin Glargine (*Bkc) 100 Units/Ml SUB-Q 18 units HS HERNESTO Administration Loratadine 10 mg 04/23/22 09:00 04/25/22 09:28 Loratadine 10 Mg Tablet PO 10 mg QAM HERNESTO Administration Magnesium Oxide 400 mg 04/23/22 09:00 04/25/22 09:27 Magnesium Oxide 400 Mg Tablet PO 400 mg DAILY HERNESTO Administration Miconazole Nitrate 1 applic 04/25/22 09:00 Miconazole 2% An
--- NOTE | 2022-04-25 11:51 | PCOTNOTE ---
Attempted to see patient this am, however patient sitting up in chair upon entering reported already completed ADLs. Pt freshly dressed and reported already bathing and grooming today. Will continue plan of care tomorrow.
--- NOTE | 2022-04-25 12:18 | WPDNEUROPN ---
Subjective Date/time seen: 04/25/22 12:18 Interval history: Seen initially by Dr. Shields with ptosis and gait abnormality in addition to the history of underlying carcinoma of the lung, diabetes mellitus, hypertension, peripheral vascular disease, carotid stenosis, and recent history of facial asymmetry with gait instability and dysphagia and initial finding of right-sided ptosis raising the possibility of stroke versus metastatic disease versus myasthenia gravis. MRI of the brain revealed moderate nonspecific white matter disease on the basis of the small vessel disease, high-resolution CT of the chest documenting enlarging right upper lobe masslike consolidation suspicious for the bronchogenic carcinoma in addition to the possibility of post radiation therapy changes or superimposed right lower lobe also revealed consolidation in addition to the bilateral small left pleural effusion also left pericardial effusion. Most likely parasympathetic involvement / sympathetic involvement with underlying malignant Objective Data Vital Signs Vital Signs: Vital Signs - 24 hr 04/24/22 14:00 04/24/22 22:00 04/24/22 20:00 Temperature 36.8 C 36.9 C Pulse Rate 86 98 Respiratory Rate 18 20 Blood Pressure 143/64 H 132/72 Pulse Oximetry 93 93 Oxygen Delivery Room Air 04/25/22 06:00 04/25/22 09:30 Temperature 36.9 C Pulse Rate 94 Respiratory Rate 20 Blood Pressure 121/72 Pulse Oximetry 94 Oxygen Delivery Room Air Intake/Output Intake/Output: Intake & Output 04/22/22 04/23/22 04/24/22 04/25/22 23:59 23:59 23:59 23:59 Intake Total 300 1520 1540 340 Output Total 200 Balance 300 1520 1540 140 Meds/Results Medications: Active Medications Generic Name Dose Route Start Last Admin Trade Name Freq PRN Reason Stop Dose Admin Acetaminophen 650 mg 04/23/22 10:32 04/23/22 12:30 Acetaminophen 325 Mg Tablet PO 650 mg Q4H PRN Administration Mild Pain (1-3) or Fever Aspirin 81 mg 04/23/22 09:00 04/25/22 09:27 Aspirin 81 Mg Chewable Tablet PO 81 mg DAILY HERNESTO Administration Atorvastatin Calcium 40 mg 04/23/22 21:00 04/24/22 21:16 Atorvastatin 40 Mg Tablet PO 40 mg HS HERNESTO Administration Calcium Carbonate 200 mg 04/23/22 02:07 Calcium Carbonate (Tums) 500 Mg (200 Mg Elemental) PO Q6H PRN Indigestion Calcium Carbonate 500 mg 10/29/22 09:00 04/25/22 09:28 Calcium/Vitamin D 500 Mg Tablet PO 500 mg QAM HERNESTO Administration Famotidine 20 mg 04/24/22 21:00 04/25/22 09:28 Famotidine 20 Mg Tablet PO 20 mg Q12HR HERNESTO Administration Ampicillin Sodium/Sulbactam Sodium 3 gm in 100 mls @ 200 mls/hr 04/24/22 12:00 04/25/22 06:02 Unasyn 3 Gm/Ns 100 Ml IVPB 200 mls/hr Q6HR HERNESTO Administration Potassium Chloride/Sodium Chloride 1,000 mls @ 100 mls/hr 04/25/22 12:30 Kcl 40 Meq/Ns IV CONT .Q10H HERNESTO Insulin Aspart 8 units 04/23/22 08:00 04/25/22 09:28 Insulin Aspart (*Bkc) 100 Units/Ml SUB-Q 8 units TIDWM HERNESTO Administration Insulin Glargine 18 units 04/23/22 21:00 04/24/22 21:17 Insulin Glargine (*Bkc) 100 Units/Ml SUB-Q 18 units HS HERNESTO Administration Loratadine 10 mg 04/23/22 09:00 04/25/22 09:28 Loratadine 10 Mg Tablet PO 10 mg QAM HERNESTO Administration Magnesium Oxide 400 mg 04/23/22 09:00 04/25/22 09:27 Magnesium Oxide 400 Mg Tablet PO 400 mg DAILY HERNESTO Administration Miconazole Nitrate 1 applic 04/25/22 09:00 Miconazole 2% Antifungal Ointment 56 Gm TOPICAL Q12HR [facility] Miscellaneous Information 0 each 04/23/22 00:01 Mesalamine 1.2 Gram Tablet,Delayed Release (Dr/Ec) Is Nonformulary - Can Patient Use From XX 05/23/22 00:00 CLARIFY [facility] Multivitamins/Minerals 1 tab 04/23/22 09:00 04/25/22 09:28 Multivitamins /C Lutein (Centrum Silver) Tablet *Bkc PO 1 tab DAILY HERNESTO Administration Mesalamine 1.2 Gram 4.8 gm 04/23/22 09:00 Tablet,Delayed PO 05/23/22 08:59 Rel
[2022-04-25 12:25] LABS: Glucose Point of Care 144 mg/dl (65-105)
--- NOTE | 2022-04-25 13:09 | PM.PNNEP ---
Progress Note: A&P Assessment and Plan (1) Chronic hyponatremia: Code(s): E87.1 - Hypo-osmolality and hyponatremia Status: Acute Assessment and Plan: the patient has chronic hyponatremia, all the way back to January of 2020. Etiology of hyponatremia could be 1 of many or combination. TSH and cortisol are okay. S PE is pending MRI brain is negative. High-resolution CT shows possible lung cancer. he was on chlorthalidone and pantoprazole on admission. Most likely the etiology for the hyponatremia is from medication. The alleged cancer could be doing this as well however I do not think he has had cancer of this kind for 2 years so this may be a recent superimposition on the sodium, possibly explaining the lower sodium this admission. At this point will continue the fluid restriction. He is off of the 2 medications. His sodium level is a little bit better today. (2) Chronic ulcerative colitis: Qualifiers: Ulcerative colitis location: unspecified ulcerative colitis location Digestive disease complication type: without complication Qualified Code(s): K51.90 - Ulcerative colitis, unspecified, without complications Code(s): K51.90 - Ulcerative colitis, unspecified, without complications Status: Chronic Assessment and Plan: This is causing longstanding diarrhea. (3) Lung mass: Code(s): R91.8 - Other nonspecific abnormal finding of lung field Status: Acute Assessment and Plan: The patient has a solitary pulmonary nodule which is getting radiation therapy. (4) BPH (benign prostatic hyperplasia): Code(s): N40.0 - Benign prostatic hyperplasia without lower urinary tract symptoms Status: Acute Assessment and Plan: It sounds like his prostatism has worsened lately. This can be uncomfortable with symptoms but also can result in more frequent bladder infections. He is on tamsulosin. (5) Facial droop: Code(s): R29.810 - Facial weakness Status: Acute Assessment and Plan: Neurology is seeing the patient. Through droop does not seem very prominent now at all. (6) Pneumonia: Qualifiers: Laterality: right Lung location: lower lobe of lung Pneumonia type: due to unspecified organism Qualified Code(s): J18.9 - Pneumonia, unspecified organism Code(s): J18.9 - Pneumonia, unspecified organism Status: Suspected Assessment and Plan: The patient is getting antibiotic (7) Diabetes: Qualifiers: Diabetes mellitus type: type 2 Diabetes mellitus terminal superintendent insulin use: with fpc use Diabetes mellitus complication status: with kidney complications Diabetes mellitus complication detail: with chronic kidney disease Chronic kidney disease stage: stage 3 (moderate) Qualified Code(s): E11.22 - Type 2 diabetes mellitus with diabetic chronic kidney disease; N18.3 - Chronic kidney disease, stage 3 (moderate); Z79.4 - senior living (current) use of insulin Code(s): E11.9 - Type 2 diabetes mellitus without complications Status: Chronic Assessment and Plan: he is on Accu-Cheks and sliding-scale insulin pressure hospitalists. (8) Generalized edema: Code(s): R60.1 - Generalized edema Status: Acute Assessment and Plan: Will keep an eye on this and treat if needed Subjective Date/time seen: 04/25/22 13:09 Interval history: Mikey is feeling pretty good today he says. He has lunch in front of him but he is not very hungry. No chest pain or shortness of breath Review of Systems Cardiovascular: Cardiovascular: Reports no additional cardiovascular complaints Respiratory: Respiratory: Reports no additional respiratory complaints Gastrointestinal: Gastrointestinal: Reports no additional gastrointestinal complaints Genitourinary: Genitourinary: Reports no additional male genitourinary complaints Exam Narrative: WDWN in NA
[2022-04-25] MEDS: KCL 40 MEQ/0.9% SOD CHL 1,000 ML 100 ML IV CONT (13:49)
[2022-04-25 15:36] VITALS: BP 138/74; PULSE 99; RESP 18; TEMP 36.9; O2SAT 91
[2022-04-25 17:32] LABS: Glucose Point of Care 115 mg/dl (65-105)
[2022-04-25 18:25] LABS: Sodium 129 mmol/L (137-145)
--- NOTE | 2022-04-25 19:27 | PDONCCN ---
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 Patient was followed by Dr. Friedman and was last seen in October of 2021. His last scan was stable. Patient now came into the hospital status post fall and generalized weakness. He denies any lightheadedness and dizziness. He was found to be orthostatic in ER. Labs showed hyponatremia and hypokalemia. Brain CT scan showed moderate nonspecific white matter changes and chronic small-vessel ischemic disease. CT scan of the chest showed enlarging right upper lobe mass but comparison was done from the study done in January of 2020. Clinically he denies any hemoptysis and shortness of breath. Denies any chest pain. Denies any weight loss. Review of Systems - Review of Systems All systems reviewed & are unremarkable except as noted in HPI and bel - Neurologic Reports system reviewed and no additional complaints, except as documented, Reports hearing normal, Reports weakness, Denies vertigo, Denies focal weakness, Denies sensory deficit [facility] Medical History: Medical History (Last Reviewed 04/24/22 @ 13:04 by Ava Shields MD) BPH (benign prostatic hyperplasia) Chronic ulcerative colitis Colitis Diabetes Generalized edema History of VT (myocardial infarction) no stents The daughter tells me that the patient had a cardiac catheterization and was clear. So it is questionable History of pelvic fracture Peripheral arterial disease Peripheral vascular disease Surgical History: Surgical History (Last Reviewed 04/24/22 @ 13:04 by Ava Shields MD) H/O rectal polypectomy History of esophagogastroduodenoscopy (EGD) S/P colonoscopic polypectomy S/P insertion of iliac artery stent bilaterally Family History: Family History (Last Reviewed 04/24/22 @ 13:04 by Ava Shields MD) Mother Cerebrovascular accident Diabetes mellitus Father Lung cancer Emphysema lung - Social History Social History: Social History (Last Reviewed 04/24/22 @ 13:04 by Ava Shields MD) Gender Identity: Gender identity (if verbalized by the patient): Male Alcohol Use: Alcohol intake: former Substance Use: Substance use: never Others: Spiritual care concerns: No Smoking Status: Smoking status: Former smoker Approximate Smoking End Date: 2001 Social Determinants of Health: Has the Lack of Transportation Kept You From Medical Appointments or From Getting Medications?: No Within the Past 12 Months, Were You Worried Whether Your Food Would Run Out Before You Got Money to Buy More?: Never True What is Your Housing Situation Today?: I Have Housing Are You Worried That in the Next 2 Months, You May Not Have Your Own Housing to Live In?: No Do You Have Trouble Paying Your Heating Or Electricity Bill?: No Do You Have Trouble Paying For Medicines?: No Are You Currently Unemployed and Looking for Work?: No Highest Level of Education Completed: High School Diploma/GED Do You Have Trouble With Childcare or the Care of a Family Member?: No Exam - Vital Signs Vital Signs - 24 hr 04/24/22 22:00 04/24/22 20:00 04/25/22 06:00 Temperature 36.9 C 36.9 C Pulse Rate 98 94 Respiratory Rate 20 20 Blood Pressure 132/72 121/72 Pulse Oximetry 93 94 Oxygen Delivery Room Air 04/25/22 09:30 04/25/22 15:36 Temperature 36.9 C Pulse Rate 99 Respiratory Rate 18 Blood Pressure 138/74 Pulse Oximetry 91 Oxygen Delivery Room Air - Exam HEENT: EOMI, PERRLA Neck: supple. No: JVD Lungs: clear to auscultation, normal air movement Hea
[2022-04-25] MEDS: ATORVASTATIN 40 MG TABLET PO (20:47)
[2022-04-25 20:49] LABS: Glucose Point of Care 87 mg/dl (65-105)
[2022-04-25 21:23] VITALS: BP 134/74; PULSE 97; RESP 20; TEMP 36.9; O2SAT 97
[2022-04-26 05:47] LABS: Basophils Absolute Auto 0.1 K/mm3 (0.0-0.1); Basophils Percent Auto 0.7 % (0.2-1.2); Eosinophils Absolute Auto 0.1 K/mm3 (0-0.3); Eosinophils Percent Auto 0.8 % (0-4.4); Hematocrit 30.2 % (42.0-52.0); Hemoglobin 9.6 g/dL (14.0-18.0); Immature Granulocyte Percent A 1.4 % (0-0.5); Lymphocytes Percent Auto 9.7 % (18.3-44.2); Mean Corpuscular HGB Conc 31.8 g/dl (32-36); Mean Corpuscular Hemoglobin 25.8 pg (26-34); Mean Corpuscular Volume 81.2 fl (80-100); Mean Platelet Volume 8.4 fl (7.4-10.4); Monocytes Absolute Auto 0.9 K/mm3 (0.1-0.6); Monocytes Percent Auto 12.3 % (2.6-8.5); Neutrophils Absolute Auto 5.4 K/mm3 (1.3-6.7); Neutrophils Percent Auto 75.1 % (45.5-73.1); Platelet Count Result 352 k/mm3 (150-375); Red Blood Count 3.72 M/mm3 (4.6-6.20); Red Cell Distribution Width 15.2 % (11.5-14.5); White Blood Count 7.2 K/mm3 (4.5-10.0)
[2022-04-26 06:00] VITALS: BP 130/70; PULSE 95; RESP 16; TEMP 36.9; O2SAT 97
[2022-04-26 06:00] LABS: Alanine Aminotransferase 69 U/L (6-50); Albumin Level 2.7 g/dL (3.5-5.1); Alkaline Phosphatase 86 U/L (38-126); Anion Gap 11 mmol/L (8-16); Aspartate Amino Transferase 68 U/L (17-59); Bilirubin,Total 0.9 mg/dL (0.2-1.3); Blood Urea Nitrogen 10 mg/dL (9-20); Calcium 7.3 mg/dL (8.4-10.2); Carbon Dioxide 33 mmol/L (22-30); Chloride 85 mmol/L (98-107); Estimated CRCL calculation 93 ml/min; Estimated Glomerular Filt Rate > 60; Glucose 158 mg/dL (65-110); Potassium 3.4 mmol/L (3.4-5.0); Sodium 129 mmol/L (137-145)
[2022-04-26] MEDS: AMPICILLIN SULB 3 GM/NS 100 ML 3 GM/100 ML VIAL IVPB ×2 (06:00)
[2022-04-26] MEDS: MULTIVITAMINS /C LUTEIN (CENTRUM SILVER) TABLET *BKC 1 TAB PO (08:49)
[2022-04-26] MEDS: FAMOTIDINE 20 MG TABLET PO (08:49)
[2022-04-26] MEDS: ASPIRIN 81 MG CHEWABLE TABLET PO (08:49)
[2022-04-26] MEDS: MAGNESIUM OXIDE 400 MG TABLET PO (08:49)
[2022-04-26] MEDS: POTASSIUM CHLORIDE 10 MEQ TABLET.ER PO (08:50)
[2022-04-26] MEDS: LORATADINE 10 MG TABLET PO (08:50)
[2022-04-26] MEDS: INSULIN ASPART (*BKC) 100 UNITS/ML 8 UNITS SUB-Q ×2 (08:50→12:14)
[2022-04-26] MEDS: TAMSULOSIN HCL 0.4 MG CAPSULE PO (08:50)
[2022-04-26 08:54] LABS: Glucose Point of Care 159 mg/dl (65-105)
--- NOTE | 2022-04-26 11:12 | PM.PNNEP ---
Progress Note: A&P Assessment and Plan (1) Chronic hyponatremia: Code(s): E87.1 - Hypo-osmolality and hyponatremia Status: Acute Assessment and Plan: the patient has chronic hyponatremia, all the way back to January of 2020. Etiology of hyponatremia could be 1 of many or combination. TSH and cortisol are okay. S PE is pending MRI brain is negative. High-resolution CT shows possible lung cancer. he was on chlorthalidone and pantoprazole on admission. etiology of the hyponatremia is most likely from medications. The lung cancer may be playing a role as well. The longer the hyponatremia continues to be an issue, the more likely the latter is the cause. Sodium is stable with fluid restriction alone. (2) Chronic ulcerative colitis: Qualifiers: Ulcerative colitis location: unspecified ulcerative colitis location Digestive disease complication type: without complication Qualified Code(s): K51.90 - Ulcerative colitis, unspecified, without complications Code(s): K51.90 - Ulcerative colitis, unspecified, without complications Status: Chronic Assessment and Plan: This is causing longstanding diarrhea. (3) Lung mass: Code(s): R91.8 - Other nonspecific abnormal finding of lung field Status: Acute Assessment and Plan: The patient has a solitary pulmonary nodule which is getting radiation therapy. (4) BPH (benign prostatic hyperplasia): Code(s): N40.0 - Benign prostatic hyperplasia without lower urinary tract symptoms Status: Acute Assessment and Plan: He says his nocturia is better on the tamsulosin. (5) Facial droop: Code(s): R29.810 - Facial weakness Status: Acute Assessment and Plan: Neurology is seeing the patient. Through droop does not seem very prominent now at all. (6) Pneumonia: Qualifiers: Laterality: right Lung location: lower lobe of lung Pneumonia type: due to unspecified organism Qualified Code(s): J18.9 - Pneumonia, unspecified organism Code(s): J18.9 - Pneumonia, unspecified organism Status: Suspected Assessment and Plan: The patient is getting antibiotic (7) Diabetes: Qualifiers: Diabetes mellitus type: type 2 Diabetes mellitus roasterman insulin use: with half-way use Diabetes mellitus complication status: with kidney complications Diabetes mellitus complication detail: with chronic kidney disease Chronic kidney disease stage: stage 3 (moderate) Qualified Code(s): E11.22 - Type 2 diabetes mellitus with diabetic chronic kidney disease; N18.3 - Chronic kidney disease, stage 3 (moderate); Z79.4 - snf (current) use of insulin Code(s): E11.9 - Type 2 diabetes mellitus without complications Status: Chronic Assessment and Plan: he is on Accu-Cheks and sliding-scale insulin pressure hospitalists. (8) Generalized edema: Code(s): R60.1 - Generalized edema Status: Acute Assessment and Plan: Will keep an eye on this and treat if needed Subjective Date/time seen: 04/26/22 11:12 Interval history: Patient is about the same today. Sitting up in a chair and eating some breakfast. Exam Narrative: WDWN in NAD skin no rash head ncat lungs clear bilaterally cor reg no rub abd BS+ nontender and soft ext no edema. Objective Data Vital Signs Vital Signs: Vital Signs - 24 hr 04/25/22 15:36 04/25/22 20:00 04/25/22 21:23 Temperature 36.9 C 36.9 C Pulse Rate 99 97 Respiratory Rate 18 20 Blood Pressure 138/74 134/74 Pulse Oximetry 91 97 Oxygen Delivery Room Air 04/26/22 06:00 04/26/22 08:45 Temperature 36.9 C Pulse Rate 95 Respiratory Rate 16 Blood Pressure 130/70 Pulse Oximetry 97 Oxygen Delivery Room Air Intake/Output Intake/Output: Intake & Output 04/23/22 04/24/22 04/25/22 04/26/22 23:59 23:59 23:59 23:59 Intake Total 1520 1540 1320 510 Ou
--- NOTE | 2022-04-26 11:58 | PM.IMPN ---
Subjective Date/time seen: 04/26/22 11:58 82-year-old male with past medical history significant for lung cancer, frequent falls, generalized weakness, osteoporosis, dyslipidemia, hypertension, insulin-dependent diabetes mellitus, chronic ulcerative colitis, peripheral vascular disease. patient presents today to the emergency room after he had a fall usually uses a walker? which got caught? while he was trying to get in the bathroom which landed him on the floor denies any loss of consciousness but heat various things on his weight down including his forehead, denies any lightheadedness, dizziness, vertigo, patient has been in his usual state of health denies any nausea, vomiting,? however he has chronic diarrhea. Pt has Objective Data Vital Signs Vital Signs: Vital Signs - 24 hr 04/25/22 15:36 04/25/22 20:00 04/25/22 21:23 Temperature 36.9 C 36.9 C Pulse Rate 99 97 Respiratory Rate 18 20 Blood Pressure 138/74 134/74 Pulse Oximetry 91 97 Oxygen Delivery Room Air 04/26/22 06:00 04/26/22 08:45 Temperature 36.9 C Pulse Rate 95 Respiratory Rate 16 Blood Pressure 130/70 Pulse Oximetry 97 Oxygen Delivery Room Air Intake/Output Intake/Output: Intake & Output 04/23/22 04/24/22 04/25/22 04/26/22 23:59 23:59 23:59 23:59 Intake Total 1520 1540 1320 510 Output Total 200 Balance 1520 1540 1120 510 Meds/Results Medications: Active Medications Generic Name Dose Route Start Last Admin Trade Name Freq PRN Reason Stop Dose Admin Acetaminophen 650 mg 04/23/22 10:32 04/23/22 12:30 Acetaminophen 325 Mg Tablet PO 650 mg Q4H PRN Administration Mild Pain (1-3) or Fever Aspirin 81 mg 04/23/22 09:00 04/26/22 08:49 Aspirin 81 Mg Chewable Tablet PO 81 mg DAILY HERNESTO Administration Atorvastatin Calcium 40 mg 04/23/22 21:00 04/25/22 20:47 Atorvastatin 40 Mg Tablet PO 40 mg HS HERNESTO Administration Calcium Carbonate 200 mg 04/23/22 02:07 Calcium Carbonate (Tums) 500 Mg (200 Mg Elemental) PO Q6H PRN Indigestion Calcium Carbonate 500 mg 04/23/22 09:00 04/26/22 08:49 Calcium/Vitamin D 500 Mg Tablet PO 500 mg QAM HERNESTO Administration Famotidine 20 mg 04/24/22 21:00 04/26/22 08:49 Famotidine 20 Mg Tablet PO 20 mg Q12HR HERNESTO Administration Ampicillin Sodium/Sulbactam Sodium 3 gm in 100 mls @ 200 mls/hr 04/24/22 12:00 04/26/22 06:30 Unasyn 3 Gm/Ns 100 Ml IVPB Infused Q6HR HERNESTO Infusion Insulin Aspart 8 units 04/23/22 08:00 04/26/22 08:50 Insulin Aspart (*Bkc) 100 Units/Ml SUB-Q 8 units TIDWM HERNESTO Administration Insulin Glargine 18 units 04/23/22 21:00 04/25/22 20:48 Insulin Glargine (*Bkc) 100 Units/Ml SUB-Q Not Given HS HERNESTO Loratadine 10 mg 04/23/22 09:00 04/26/22 08:50 Loratadine 10 Mg Tablet PO 10 mg QAM HERNESTO Administration Magnesium Oxide 400 mg 04/23/22 09:00 04/26/22 08:49 Magnesium Oxide 400 Mg Tablet PO 400 mg DAILY HERNESTO Administration Miconazole Nitrate 1 applic 04/25/22 09:00 04/26/22 08:50 Miconazole 2% Antifungal Ointment 56 Gm TOPICAL 1 applic Q12HR HERNESTO Administration Miscellaneous Information 0 each 04/23/22 00:01 04/26/22 06:20 Mesalamine 1.2 Gram Tablet,Delayed Release (Dr/Ec) Is Nonformulary - Can Patient Use From XX 05/23/22 00:00 Not Given [facility] Multivitamins/Minerals 1 tab 04/23/22 09:00 04/26/22 08:49 Multivitamins /C Lutein (Centrum Silver) Tablet *Bkc PO 1 tab DAILY HERNESTO Administration Mesalamine 1.2 Gram 4.8 gm 04/23/22 09:00 Tablet,Delayed PO 05/23/22 08:59 Release (Dr/Ec) Is DAILY [facility] Nonformulary - Can Patient Use From Potassium Chloride 10 meq 04/23/22 09:00 04/26/22 08:50 Potassium Chloride 10 Meq Tablet.Er PO 10 meq DAILY HERNESTO Administration Tamsulosin HCl 0.4 mg 04/24/22 11:55 11/01/22 08:50 Tamsulosin Hcl 0.4 Mg Capsule PO 0.4 mg DAILY HERNESTO Administration Radiology Results: I
--- NOTE | 2022-04-26 12:02 | PM.DS ---
DS: Admitting Diagnosis Discharge Date apr 26 Admitting Diagnosis Fall DS: Discharge Diagnosis Discharge Diagnosis (1) Dysphagia: Code(s): R13.10 - Dysphagia, unspecified Status: Acute (2) Pericardial effusion: Code(s): I31.39 - Other pericardial effusion (noninflammatory) Status: Acute (3) Pneumonia: Qualifiers: Laterality: right Lung location: lower lobe of lung Pneumonia type: due to unspecified organism Qualified Code(s): J18.9 - Pneumonia, unspecified organism Code(s): J18.9 - Pneumonia, unspecified organism Status: Suspected Plan Pt found to have low sodium and pneumonia pt has history of lung cancer. Pt seen by oncology and nephrology stable for DC. Pt had speech therapy consulted had swallow evaluation done.? No aspiration noted.? Patient on regular diet can be dc today with oral abx. Pt had theraphy in the hospital. DS: Summary Hospital Course Hospital Course: Pt found to have low sodium and pneumonia pt has history of lung cancer. Pt seen by oncology and nephrology stable for DC. Pt had speech therapy consulted had swallow evaluation done.? No aspiration noted.? Patient on regular diet can be dc today with oral abx. Pt had theraphy in the hospital. Time Spent with Patient Time attestation: Total time spent providing and/or coordinating discharge services: Exam Narrative: WDWN in NAD skin no rash head ncat lungs clear bilaterally cor reg no rub abd BS+ nontender and soft ext no edema. DS: Data Data Completed and Pending Labs on day of discharge: Labs from last 24 hours 04/26/22 04/26/22 04/26/22 08:36 05:39 05:39 WBC 7.2 RBC 3.72 L Hgb 9.6 L Hct 30.2 L MCV 81.2 MCH 25.8 L MCHC 31.8 L RDW 15.2 H Plt Count 352 MPV 8.4 Immature Gran % (Auto) 1.4 H Neut % (Auto) 75.1 H Lymph % (Auto) 9.7 L Rutherford % (Auto) 12.3 H Eos % (Auto) 0.8 Baso % (Auto) 0.7 Lymph # (Auto) 0.70 L Rutherford # (Auto) 0.9 H Eos # (Auto) 0.1 Baso # (Auto) 0.1 Abs Immat Gran (auto) 0.10 H Absolute Neuts (auto) 5.4 Absolute Nucleated RBC 0.0 Nucleated RBC % 0.0 Sodium 129 L Potassium 3.4 Chloride 85 L Carbon Dioxide 33 H Anion Gap 11 BUN 10 Creatinine 0.60 L Estim Creat Clear Calc 93 Estimated GFR > 60 Glucose 158 H POC Capillary Glucose 159 H Calcium 7.3 L Total Bilirubin 0.9 AST 68 H ALT 69 H Alkaline Phosphatase 86 Total Protein 6.0 L Albumin 2.7 L 04/25/22 04/25/22 04/25/22 20:43 18:05 17:27 WBC RBC Hgb Hct MCV MCH MCHC RDW Plt Count MPV Immature Gran % (Auto) Neut % (Auto) Lymph % (Auto) Rutherford % (Auto) Eos % (Auto) Baso % (Auto) Lymph # (Auto) Rutherford # (Auto) Eos # (Auto) Baso # (Auto) Abs Immat Gran (auto) Absolute Neuts (auto) Absolute Nucleated RBC Nucleated RBC % Sodium 129 L Potassium Chloride Carbon Dioxide Anion Gap BUN Creatinine Estim Creat Clear Calc Estimated GFR Glucose POC Capillary Glucose 87 115 H Calcium Total Bilirubin AST ALT Alkaline Phosphatase Total Protein Albumin 04/25/22 12:22 WBC RBC Hgb Hct MCV MCH MCHC RDW Plt Count MPV Immature Gran % (Auto) Neut % (Auto) Lymph % (Auto) Rutherford % (Auto) Eos % (Auto) Baso % (Auto) Lymph # (Auto) Rutherford # (Auto) Eos # (Auto) Baso # (Auto) Abs Immat Gran (auto) Absolute Neuts (auto) Absolute Nucleated RBC Nucleated RBC % Sodium Potassium Chloride Carbon Dioxide Anion Gap BUN Creatinine Estim Creat Clear Calc Estimated GFR Glucose POC Capillary Glucose 144 H Calcium Total Bilirubin AST ALT Alkaline Phosphatase Total Protein Albumin Preliminary micro results at discharge 04/22/22 22:49 Blood Culture - Preliminary Blood 04/22/22 22:49 Blo
[2022-04-26 12:40] LABS: EDCOVIDSCREEN Negative (Negative)
[2022-04-27 16:59] LABS: Albumin 2.3 g/dL (3.8-4.8); Alpha 1 Globulin 0.7 g/dL (0.2-0.3); Alpha 2 Globulin 1.2 g/dL (0.5-0.9); Beta 1 Globulin 0.4 g/dL (0.4-0.6); Gamma Globulin 1.2 g/dL (0.8-1.7); Protein, Total 6.1 g/dL (6.1-8.1)
== END 2022-04-26 14:00 | DRG 640 ==
LOC: ANHED 23:48 → ANH3MED 04-23 00:01
PROVIDERS: Hospitalist; Internal Medicine Nephrology; Physician Assistant; Student in an Organized Health Care Education/Training Program; Admitting Provider Internal Medicine; Emergency Provider Emergency Medicine; PCP Nurse Practitioner Family; Visit Provider Family Medicine
DX: E87.1 Hypo-osmolality and hyponatremia (principal); J18.9 Pneumonia, unspecified organism; C34.11 Malignant neoplasm of upper lobe, right bronchus or lung; I31.39 Other pericardial effusion (noninflammatory); K51.90 Ulcerative colitis, unspecified, without complications; E87.6 Hypokalemia; E11.51 Type 2 diabetes mellitus with diabetic peripheral angiopathy without gangrene; E11.22 Type 2 diabetes mellitus with diabetic chronic kidney disease; I12.9 Hypertensive chronic kidney disease with stage 1 through stage 4 chronic kidney disease, or unspecified chronic kidney disease; N18.30 Chronic kidney disease, stage 3 unspecified; S09.90XA Unspecified injury of head, initial encounter; I65.23 Occlusion and stenosis of bilateral carotid arteries; K52.9 Noninfective gastroenteritis and colitis, unspecified; R26.9 Unspecified abnormalities of gait and mobility; R29.6 Repeated falls; M81.0 Age-related osteoporosis without current pathological fracture; R13.10 Dysphagia, unspecified; R29.810 Facial weakness; N40.0 Benign prostatic hyperplasia without lower urinary tract symptoms; Z20.822 Contact with and (suspected) exposure to COVID-19; Z66 Do not resuscitate; I25.2 Old myocardial infarction; Z79.4 Long term (current) use of insulin; Z79.82 Long term (current) use of aspirin; Z87.891 Personal history of nicotine dependence; Z95.820 Peripheral vascular angioplasty status with implants and grafts; Z92.3 Personal history of irradiation
CPT/HCPCS: 36415; 70450; 70551; 71046; 71250; 72125; 80048; 80053; 82533; 82570; 82948; 83036; 83735; 83880; 84100; 84155; 84156; 84165; 84295; 84300; 84443; 85025; 87040; 87426; 87502; 87637; 92610; 92611; 93306; 96365; 96367; 96375; 97110; 97161; 97165; 97530; 99285; A9270; C9803; G0378; J0295; J0456; J0696; J1815; J3480; J7030; J7040; U0003; U0005

== ENCOUNTER 2022-04-30 04:25 | Inpatient (IN) | payer MEDICARE, SELFPAY ==
[2022-04-30] VITALS (26 sets, daily range): BP systolic 118–152; BP diastolic 72–85; PULSE 94–109; RESP 13–28; TEMP 36–36.7; O2SAT 89–98; BMI 24.1
--- NOTE | ~2022-04-30 | XR_ITS ---
XR chest 1V portable DATE: 04/30/2022 06:02 INDICATION: Shortness of breath. Fall. TECHNIQUE: Portable upright AP chest on 04/30/2022 at 0558 hours COMPARISON: 04/24/2022 CT chest high resolution scan FINDINGS: Large right pleural effusion and right mid and lower and left lower lung infiltrate or atel ectasis. No pneumothorax. Mild pulmonary vascular congestion. Diffuse osteopenia. Multiple old healed left rib fractures. IMPRESSION: Bilateral infiltrates, greater on the right, bilateral pleural effusions, greater on the right, pulmonary vascular congestion Aortic calcification Osteopenia Old left rib fractures Reviewed, dictated and finalized at location A. IMPRESSION: Bilateral infiltrates, greater on the right, bilateral pleural effu sions, greater on the right, pulmonary vascular congestion Aortic calcification Osteopenia Old left rib fractures
--- NOTE | ~2022-04-30 | CT_ITS ---
EXAMINATION: CT brain wo con DATE: 04/30/2022 06:25 INDICATION: Right forehead hematoma TECHNIQUE: Computed tomography (CT) of the head was performed without intravenous contrast. The mA wa s adjusted according to patient size. Iterative reconstruction technique was employed. Exam dose: 60 5.33 mGy-cm total exam DLP. COMPARISON: 04/24/2022 MR brain 04/22/2022 CT brain FINDINGS: Prominent bilateral vertebral artery calcifications and carotid siphon internal carotid art archie calcifications. There is nonspecific patchy diminished attenuation of the cerebral white matter, likely due to chroni c small vessel ischemic changes. No intracranial mass lesion or hemorrhage, midline shift or mass effect. No subdural or epidural christy adriane is evident. There is some beam hardening artifacts and motion artifacts. Moderately prominent central and cortical cerebral and cerebellar atrophy. Right frontal cephalohematoma. No skull fracture or acute intracranial coup or contrecoup injury is i dentified. The mastoid air cells and included paranasal sinuses are unremarkable. IMPRESSION: Right frontal cephalohematoma; no skull fracture or acute intracranial abnormality Cerebral atherosclerosis and chronic small vessel ischemic changes of the cerebral white matter Moderately prominent cerebral and cerebellar volume loss Reviewed, dictated and finalized at [facility]. Reviewed, dictated and finalized at location A. IMPRESSION: Right frontal cephalohematoma; no skull fracture or acute intracra nial abnormality Cerebral atherosclerosis and chronic small vessel ischemic changes of the cereb ral white matter Moderately prominent cerebral and cerebellar volume loss
--- NOTE | ~2022-04-30 | US_ITS ---
EXAMINATION: US venous doppler [facility] DATE: 05/01/2022 11:37 INDICATION: edema . TECHNIQUE: Grayscale images without and with compression and Doppler images of the bilateral lower ex tremity veins were obtained. COMPARISON: None FINDINGS: The right common femoral vein, profunda (deep) femoral vein, femoral vein, popliteal vein, peroneal v ein, posterior tibial veins, gastrocnemius vein, and greater saphenous vein are patent. The left common femoral vein, profunda femoral vein, femoral vein, popliteal vein, peroneal vein, pos terior tibial veins, gastrocnemius vein, and greater saphenous vein are patent. IMPRESSION: 1. Patent bilateral lower extremity veins. No evidence of deep venous thrombosis. Reviewed, dictated and finalized at location [facility]. SH VISITOR IMPRESSION: 1. Patent bilateral lower extremity veins. No evidence of deep venous thrombos is.
--- NOTE | 2022-04-30 04:35 | PC.NURSE ---
Noted large healing hematoma to right forehead. Pt reports has been seen for that and was hospitalized for pneumonia and checked for hematoma
--- NOTE | 2022-04-30 04:40 | ECG_ITS ---
Measurements Intervals Portal Rate: 101 P: 28 VA: 212 QRS: 35 QRSD: 81 T: 93 QT: 322 QTc: 418 Interpretive Statements SINUS OR ECTOPIC ATRIAL TACHYCARDIA VENTRICULAR COUPLET AND VENTRICULAR PREMATURE COMPLEX NONSPECIFIC T-WAVE ABNORMALITY- INF/HIGH LAT LEADS BASELINE ARTIFACT- I, II, III, AVR, AVL, AVF, V6 ABNORMAL ECG COMPARED TO ECG 02/11/2020 09:46:14 SINUS OR ECTOPIC ATRIAL TACHYCARDIA NOW PRESENT Electronically Signed On 04-30-2022 7:38:59 CDT by Teo Herrera D.O.
--- NOTE | 2022-04-30 04:43 | ED.GENADULT ---
HPI - General Adult General Chief complaint: Unspecified <Mara English MD - Last Filed: 04/30/22 07:52> Stated complaint: INSOMNIA/CONFUSION <Mara English MD - Last Filed: 04/30/22 07:52> Time Seen by Provider: 04/30/22 04:27 <Mara English MD - Last Filed: 04/30/22 07:52> Source: patient, EMS, RN notes reviewed and old records reviewed <Mara English MD - Last Filed: 04/30/22 07:52> Mode of arrival: EMS <Mara English MD - Last Filed: 04/30/22 07:52> Limitations: no limitations <Mara English MD - Last Filed: 04/30/22 07:52> History of Present Illness HPI narrative: This is an 82 year old male who presents from [facility] for possible CVA. EMS states patient was unable to sleep so he kept calling the nurses station. EMS states patient was sent to ER for possible CVA and slurred speech, but they did not find sign of CVA. Stroke scale by EMS was 0. PAtient was discharged from [place] [facility] after evaluation of weakness, head injury, lung mass and possible pneumonia. Patient denies headache or dizziness. He denies focal weakness. He states his speech is off because his mouth is dry. He also reports some mild shortness of breath but he denies chest pain, nausea, vomiting. <Mara English MD - Last Filed: 04/30/22 07:52> Related Data Home medications: Home Medications Medication Instructions Recorded Confirmed alendronate 70 mg tablet 70 mg PO WEEKLY 02/11/20 04/23/22 aspirin 81 mg chewable tablet 81 mg PO DAILY 02/11/20 04/23/22 atorvastatin 40 mg tablet 40 mg PO HS 02/11/20 04/23/22 insulin glargine 100 unit/mL (3 18 unit subcut HS 02/11/20 04/23/22 mL) subcutaneous pen (Lantus Solostar U-100 Insulin) insulin lispro 100 unit/mL 8 unit subcut AC 02/11/20 04/23/22 subcutaneous pen [id number] acid 0.4 1 tablet PO DAILY 02/11/20 04/23/22 mg-lycopene 300 mcg-lutein 250 mcg tablet (Theratrum Complete 50 Plus(lycopene,lutein)) pen needle, diabetic, safety 30 02/11/20 04/23/22 gauge x 1/3 (Novofine Autocover) cetirizine 10 mg tablet 10 mg PO DAILY 03/21/20 04/23/22 esomeprazole magnesium 40 mg 40 mg PO DAILY 03/21/20 04/23/22 capsule,delayed release magnesium oxide 400 mg PO DAILY 03/21/20 04/23/22 mesalamine 1.2 gram tablet,delayed 4.8 g PO DAILY 03/21/20 04/23/22 release potassium chloride 10 mEq 10 meq PO DAILY 03/21/20 04/23/22 tablet,extended release calcium carbonate 600 mg-vitamin 1 tablet PO DAILY 04/23/22 04/23/22 D3 10 mcg (400 unit) tablet <Mara English MD - Last Filed: 04/30/22 07:52> Allergies/adverse reactions: Allergies Allergy/AdvReac Type Severity Reaction Status Date / Time No Known Allergies Allergy Verified 03/21/20 13:19 <Mara English MD - Last Filed: 04/30/22 07:52> Review of Systems Review of Systems: All systems reviewed & are unremarkable except as noted in HPI and below <Mara English MD - Last Filed: 04/30/22 07:52> [facility] Past Medical History Medical History: Medical History BPH (benign prostatic hyperplasia) Chronic ulcerative colitis Colitis Diabetes Generalized edema History of TN (myocardial infarction) no stents The daughter tells me that the patient had a cardiac catheterization and was clear. So it is questionable History of pelvic fracture Peripheral arterial disease Peripheral vascular disease <Mara English MD - Last Filed: 04/30/22 07:52> Surgical History Surgical History: Surgical History H/O rectal polypectomy History of esophagogastroduodenoscopy (EGD) S/P colonoscopic polypectomy S/P insertion of iliac artery stent bilaterally <Mara English MD - Last Filed: 04/30/22 07:52> Family History Family History: Family History Mother Cerebrovasc
[2022-04-30] MEDS: ALBUTEROL SULFATE NEB 2.5 MG/3 ML INH 5 MG INHALATION (05:03)
[2022-04-30] MEDS: IPRATROPIUM BR 0.02% INH SOLN 0.5 MG/2.5 ML VIAL INHALATION (05:04)
[2022-04-30 05:16] LABS: Base Excess ABG 3.7 mEq/l (+/-2.0); Carboxyhemoglobin 0.9 % THb (0-2.0); Fractional Inspired Oxygen 21 %; HCO3 ABG 27.8 mEq/l (22.0-26.0); Methemoglobin ABG 0.3 %THb (0-1.5); Oxygen Content ABG 14.6 %vol (16.0-22.0); Oxygen Saturation ABG 98.8 % (95.0-100.0); Oxyhemoglobin 96.9 % THb (90.0-100.0); PCO2 ABG 40.5 mmHg (35.0-45.0); PO2 ABG 133.8 mmHg (80.0-100.0); PO2 FiO2 Ratio Arterial Blood 6.37 %; Reduced Hemoglobin 1.9 %THb (0-5.0); Total Hemoglobin 10.5 g/dL (12.0-18.0); pH ABG 7.455 (7.350-7.450)
[2022-04-30 05:17] LABS: Device ROOM AIR; Modified Allen's Test Pass; Site Drawn LEFT RADIAL
[2022-04-30 05:54] LABS: INR 1.2
[2022-04-30 05:55] LABS: Partial Thromboplastin Time 23.9 SECONDS (22.3-36.8)
[2022-04-30 06:03] LABS: Alanine Aminotransferase 80 U/L (6-50); Albumin Level 2.9 g/dL (3.5-5.1); Alkaline Phosphatase 94 U/L (38-126); Anion Gap 13 mmol/L (8-16); Aspartate Amino Transferase 58 U/L (17-59); Bilirubin,Total 0.8 mg/dL (0.2-1.3); Blood Urea Nitrogen 14 mg/dL (9-20); Calcium 7.5 mg/dL (8.4-10.2); Carbon Dioxide 27 mmol/L (22-30); Chloride 92 mmol/L (98-107); Estimated CRCL calculation 90 ml/min; Estimated Glomerular Filt Rate > 60; Glucose 266 mg/dL (65-110); Lactic Acid Reflex 1.2 mmol/L (0.7-2.0); Potassium 4.3 mmol/L (3.4-5.0); Sodium 132 mmol/L (137-145)
[2022-04-30 06:10] LABS: NT Pro B Type Natriuretic Pept 1590 pg/mL (5-100)
[2022-04-30 06:41] LABS: Basophils Percent Auto 0.4 % (0.2-1.2); Eosinophils Percent Auto 0.1 % (0-4.4); Hematocrit 29.9 % (42.0-52.0); Hemoglobin 9.4 g/dL (14.0-18.0); Immature Granulocyte Absolute 0.09 K/mm3 (0.00-0.031); Lymphocytes Absolute Auto 0.45 K/mm3 (0.9-3.2); Lymphocytes Percent Auto 4.9 % (18.3-44.2); Mean Corpuscular HGB Conc 31.4 g/dl (32-36); Mean Corpuscular Volume 82.8 fl (80-100); Mean Platelet Volume 8.6 fl (7.4-10.4); Monocytes Absolute Auto 0.9 K/mm3 (0.1-0.6); Monocytes Percent Auto 10.1 % (2.6-8.5); Neutrophils Absolute Auto 7.7 K/mm3 (1.3-6.7); Neutrophils Percent Auto 83.5 % (45.5-73.1); Platelet Count Result 370 k/mm3 (150-375); Red Blood Count 3.61 M/mm3 (4.6-6.20); Red Cell Distribution Width 15.9 % (11.5-14.5); White Blood Count 9.2 K/mm3 (4.5-10.0)
[2022-04-30 07:20] LABS: Platelet Clumps Present; Platelet Estimate Increased (Adequate)
[2022-04-30 07:21] LABS: Anisocytosis 1+ (NORMAL); Crenated RBC 2+ (NORMAL); Poikilocytosis 2+ (NORMAL)
[2022-04-30 07:22] LABS: Giant Platelets Present; Hypochromasia 1+ (NORMAL); Schistocytes 1+ (NORMAL)
[2022-04-30 09:02] LABS: SARS-CoV-2 RNA PCR Negative
--- NOTE | 2022-04-30 10:55 | ADMGEN ---
This patient, Mikey Yoo, was admitted to [facility] Surg Room 331-01. Patient/family oriented to hospital policies and general routines including ID bracelet, bed and alarms, visiting hours, pain management, procedures, bathroom and other care routines, personal items, smoking policy, room service/diet, and visiting hours. Information on how to activate the Rapid Response Team has been discussed. Patient/Family are encouraged to report perceived risks to care and to ask questions if they do not understand what they are told or what they should do.
[2022-04-30 12:13] LABS: Glucose Point of Care 305 mg/dl (65-105)
[2022-04-30 16:43] LABS: Glucose Point of Care 362 mg/dl (65-105)
[2022-04-30] MEDS: INSULIN ASPART (*BKC) 100 UNITS/ML SUB-Q (18:04)
--- NOTE | 2022-04-30 18:15 | PM.IMHP ---
H&P: HPI History of Present Illness Date/Time: 04/30/22 18:15 Chief Complaint: Slurred speech. Narrative: This is a very pleasant 82-year-old male with history of lung cancer, insulin-dependent diabetes, hypertension, dyslipidemia, osteoporosis, peripheral vascular disease, benign prostatic hyperplasia, and ulcerative colitis who presented to the emergency department via EMS from [facility] in [place] for evaluation of slurred speech. The patient tells me that he has had difficulties falling asleep and staying asleep recently; he cannot give me an accurate time frame, and early this morning when staff went to check on him his speech was slurred and he was sent in to evaluate for possible CVA. It is noted that he was recently hospitalized between 04/22/2022 and 04/27/2022 after presenting with a fall and head trauma with concerns for CVA with transient facial asymmetry, dysphagia, right-sided ptosis, and gait instability. MRI at that time showed moderate nonspecific white matter disease. A high-resolution chest CT showed an enlarging right upper lobe masslike consolidation and it was felt that perhaps his symptoms were related to parasympathetic sympathetic involvement due to underlying malignancy. He was seen by Dr. Harris in consultation who referred him back to Dr. Friedman at [facility] who treated his early stage non-small cell lung cancer in June of 2021. It is my understanding that his symptoms improved and he passed a swallow study. In any event, his stroke scale was 0 on EMS arrival and his speech is clear at the time my evaluation. Aside from the sleeping issue he has no specific complaints and he specifically denies headache, vertigo, auditory and visual changes, dysarthria, dysphagia, facial droop, focal weakness, and paresthesias. Review of Systems Review of Systems: Twelve systems were reviewed. No fever, chills, or sweats. No sinus congestion or sore throat. He has an occasional mild nonproductive cough. He denies chest pain, pleuritic pain, palpitations, and shortness of breath. No nausea or vomiting. He has loose stools most days, may be 2 to 3 times a day related to his chronic ulcerative colitis. He has lower extremity edema below the knees which has been present for some time and he denies that this has changed. Except as documented, all other systems were reviewed and are negative. [facility] Past Medical History Medical History (Updated 04/30/22 @ 23:02 by Marisel Gómez PA-C) BPH (benign prostatic hyperplasia) Chronic ulcerative colitis History of MT (myocardial infarction) no stents The daughter tells me that the patient had a cardiac catheterization and was clear. So it is questionable History of pelvic fracture Insulin dependent type 2 diabetes mellitus Non-small cell lung cancer Right upper lobe status post SBRT in June [address] Friedman at [facility]. Peripheral arterial disease Peripheral vascular disease Surgical History Surgical History H/O rectal polypectomy History of esophagogastroduodenoscopy (EGD) S/P colonoscopic polypectomy S/P insertion of iliac artery stent bilaterally Family History Family History Mother Cerebrovascular accident Diabetes mellitus Father Lung cancer Emphysema lung Social History Social History (Updated 04/30/22 @ 22:51 by Marisel Gómez PA-C) Social History: The patient lives in assisted living at [facility]. The patient smoked up until just a couple years ago. The patient has 2 children, 1 when she was 22 years old. He is . His daughter Jamila is a durable power staff combat information center officer for healthcare. 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 He is retired. No alcohol or substance abuse. Smoking status: Former smoker Tobacco type: cigarettes Alcohol intake: former Substance use: never Has the Lack of Transportation Kept You From
[2022-04-30 21:09] LABS: Glucose Point of Care 332 mg/dl (65-105)
[2022-04-30] MEDS: ATORVASTATIN 40 MG TABLET PO (23:50)
[2022-04-30] MEDS: FAMOTIDINE 20 MG TABLET PO (23:50)
[2022-04-30] MEDS: MELATONIN 5 MG TABLET PO (23:50)
[2022-04-30] MEDS: INSULIN GLARGINE (*BKC) 100 UNITS/ML 18 UNITS SUB-Q (23:50)
[2022-05-01] VITALS (9 sets, daily range): BP systolic 136–148; BP diastolic 70–81; PULSE 80–107; RESP 16–22; TEMP 36.2–36.4; O2SAT 96–98
--- NOTE | 2022-05-01 01:26 | PC.NURSE ---
Daylight Savings Time For Daylight Savings Time Ending in the Fall - Clocks are moved back. For Daylight Savings Time Beginning in the Spring - Clocks are moved ahead. For [facility], the time of change occurs at 0200 hrs. Time is taken from the summons server. This entry on the patient's chart recognizes the change in time reflected during documentation. Example: 2 entries for vital signs may be charted for 0200 hrs.
[2022-05-01 07:57] LABS: Basophils Absolute Auto 0.1 K/mm3 (0.0-0.1); Basophils Percent Auto 0.7 % (0.2-1.2); Eosinophils Absolute Auto 0.1 K/mm3 (0-0.3); Eosinophils Percent Auto 0.7 % (0-4.4); Hematocrit 28.7 % (42.0-52.0); Hemoglobin 8.8 g/dL (14.0-18.0); Immature Granulocyte Absolute 0.09 K/mm3 (0.00-0.031); Immature Granulocyte Percent A 1.3 % (0-0.5); Lymphocytes Absolute Auto 0.64 K/mm3 (0.9-3.2); Lymphocytes Percent Auto 9.3 % (18.3-44.2); Mean Corpuscular HGB Conc 30.7 g/dl (32-36); Mean Corpuscular Hemoglobin 25.1 pg (26-34); Mean Platelet Volume 8.6 fl (7.4-10.4); Monocytes Absolute Auto 0.9 K/mm3 (0.1-0.6); Neutrophils Absolute Auto 5.1 K/mm3 (1.3-6.7); Platelet Count Result 378 k/mm3 (150-375); Red Cell Distribution Width 16.1 % (11.5-14.5); White Blood Count 6.9 K/mm3 (4.5-10.0)
[2022-05-01 08:11] LABS: Glucose Point of Care 197 mg/dl (65-105)
[2022-05-01 08:14] LABS: Alanine Aminotransferase 55 U/L (6-50); Albumin Level 2.8 g/dL (3.5-5.1); Alkaline Phosphatase 90 U/L (38-126); Anion Gap 8 mmol/L (8-16); Aspartate Amino Transferase 28 U/L (17-59); Bilirubin,Total 0.9 mg/dL (0.2-1.3); Blood Urea Nitrogen 10 mg/dL (9-20); Calcium 7.4 mg/dL (8.4-10.2); Carbon Dioxide 31 mmol/L (22-30); Chloride 92 mmol/L (98-107); Estimated CRCL calculation 106 ml/min; Estimated Glomerular Filt Rate > 60; Glucose 204 mg/dL (65-110); Magnesium 2.1 mg/dL (1.6-2.3); Potassium 3.7 mmol/L (3.4-5.0); Sodium 131 mmol/L (137-145)
[2022-05-01 09:14] LABS: Folic Acid 15.3 ng/mL (2.76->20)
[2022-05-01] MEDS: INSULIN ASPART (*BKC) 100 UNITS/ML 8 UNITS SUB-Q ×2 (09:29→12:25)
[2022-05-01] MEDS: FUROSEMIDE INJ 40 MG/4 ML VIAL 20 MG IV PUSH (09:36)
[2022-05-01] MEDS: TAMSULOSIN HCL 0.4 MG CAPSULE PO (09:40)
[2022-05-01] MEDS: POTASSIUM CHLORIDE 10 MEQ TABLET.ER PO (09:40)
[2022-05-01] MEDS: PANTOPRAZOLE 40 MG TABLET PO (09:40)
[2022-05-01] MEDS: FAMOTIDINE 20 MG TABLET PO ×2 (09:40→21:12)
[2022-05-01] MEDS: ASPIRIN 81 MG CHEWABLE TABLET PO (09:40)
[2022-05-01] MEDS: MAGNESIUM OXIDE 400 MG TABLET PO (09:40)
[2022-05-01] MEDS: LORATADINE 10 MG TABLET PO (09:41)
[2022-05-01] MEDS: ENOXAPARIN 40 MG/0.4 ML SYRINGE SUB-Q (09:41)
[2022-05-01] MEDS: MULTIVITAMINS /C LUTEIN (CENTRUM SILVER) TABLET *BKC 1 TAB PO (09:41)
[2022-05-01 10:06] LABS: Iron 23 ug/dL (49-181)
[2022-05-01 10:15] LABS: Percent Iron Saturation 14 % (20-50)
[2022-05-01 10:36] LABS: Thyroid Stimulating Hormone Reflex 0.845 uIU/mL (0.465-4.68)
--- NOTE | 2022-05-01 11:29 | PM.IMPN ---
Progress Note: A&P Assessment and Plan (1) Stroke-like symptoms: Code(s): R29.90 - Unspecified symptoms and signs involving the nervous system Status: Acute Assessment and Plan: The patient was brought to the emergency department today for evaluation of stroke-like symptoms, specifically slurred speech noted by staff early this morning. His symptoms resolved by the time he came into the emergency department. Stroke workup from recent hospitalization is noted. He will be monitor on telemetry and we will perform neurologic checks q.4 hours. Continue aspirin statin. (2) Hypoxia: Code(s): R09.02 - Hypoxemia Status: Acute Assessment and Plan: likely secondary to pneumonia. Continue Levaquin. Otherwise respiratory status is okay this morning. (3) Abnormal chest x-ray: Code(s): R93.89 - Abnormal findings on diagnostic imaging of other specified body structures Status: Acute Assessment and Plan: Will give additional dose of Lasix. 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 Friedman in June 2021. More recent imaging showed enlarging right upper lobe mass and he was referred back to [facility]. (5) Pericardial effusion: Code(s): I31.39 - Other pericardial effusion (noninflammatory) Status: Acute Assessment and Plan: Small circumferential pericardial effusion noted on echocardiogram on 04/25/2022. (6) Chronic anemia: Code(s): D64.9 - Anemia, unspecified Status: Acute Assessment and Plan: Hemoglobin have slowly gone down over the last month or so. Check iron studies as well as B12 and folate. (7) Insulin dependent type 2 diabetes mellitus: Code(s): E11.9 - Type 2 diabetes mellitus without complications; Z79.4 - intermodal customer service (current) use of insulin Status: Acute Assessment and Plan: Continue basal insulin. Initiate sliding scale insulin, Accu-Cheks, and hypoglycemic protocol. Recent A1c was 9.3%. (8) Difficulty sleeping: Code(s): G47.9 - Sleep disorder, unspecified Status: Acute Assessment and Plan: Patient denies that he is short of breath when trying to sleep at nighttime though that is a possibility given effusions noted on imaging. Melatonin 5 milligrams ordered. Discussed avoiding naps so that he could sleep better at nighttime. Subjective Date/time seen: 05/01/22 11:29 no new complaints Exam Narrative: General: Well-developed elderly gentleman sitting in a chair at the side of the bed in no distress. Weight: 77.2 kilograms. BMI: 22.5. HEENT: Hematoma of the right forehead near the scalp line with surrounding area of ecchymosis down to the right eye. PERRL, EOMI. Sclera anicteric. Oral mucosa moist. Neck: Supple. No bruits. Respiratory: Respirations are nonlabored. Lung sounds are diminished at the bases with faint crackles. Cardiovascular: Regular rate and rhythm with S1-S2. Gastrointestinal: Abdomen is soft, nontender, and nondistended with positive bowel sounds. Skin: Warm and dry. Bruising on the dorsum of the hand with abrasions over the knuckles. Bruising to the right eye and forehead as above. Extremities: No cyanosis or clubbing. He has pitting edema of the lower legs bilaterally up to the knees. No palpable knots or cords. Equivocal Dante sign bilaterally. Neurological: Alert and oriented. Cranial nerves 2-12 are grossly intact though right eyelid may be slightly drooping. Speech is clear. No facial asymmetry. Hand elementary instructional coach are strong and equal bilaterally as well as foot pushes. No pronator drift. Psychiatric: Pleasant and cooperative with normal mood and affect. Objective Data Vital Signs Vital Signs: Vital Signs - 24 hr 04/30/22 14:00 04/30
[2022-05-01 12:00] LABS: Glucose Point of Care 229 mg/dl (65-105)
[2022-05-01] MEDS: INSULIN ASPART (*BKC) 100 UNITS/ML SUB-Q (12:24)
[2022-05-01 16:54] LABS: Glucose Point of Care 75 mg/dl (65-105)
--- NOTE | 2022-05-01 17:01 | PC.NURSE ---
Pt has been up in chair today. Pt went for ultrasound this morning. Pt was able to participate and contribute in plan of care. Pt has no complaints or needs at this time. Will continue to monitor pt.
[2022-05-01 20:36] LABS: Glucose Point of Care 150 mg/dl (65-105)
[2022-05-01] MEDS: ATORVASTATIN 40 MG TABLET PO (21:12)
[2022-05-01] MEDS: INSULIN GLARGINE (*BKC) 100 UNITS/ML 18 UNITS SUB-Q (21:13)
[2022-05-02] VITALS (13 sets, daily range): BP systolic 111–159; BP diastolic 62–80; PULSE 84–104; RESP 18–20; TEMP 36.4–36.7; O2SAT 93–98
--- NOTE | 2022-05-02 08:22 | PCPTNOTE ---
Attempted PT evaluation, pt refused stating he would like to eat his breakfast first. RN aware.
[2022-05-02 08:39] LABS: Glucose Point of Care 115 mg/dl (65-105)
[2022-05-02 08:43] LABS: Basophils Absolute Auto 0.1 K/mm3 (0.0-0.1); Basophils Percent Auto 0.8 % (0.2-1.2); Eosinophils Absolute Auto 0.1 K/mm3 (0-0.3); Eosinophils Percent Auto 0.8 % (0-4.4); Hemoglobin 9.5 g/dL (14.0-18.0); Immature Granulocyte Absolute 0.06 K/mm3 (0.00-0.031); Immature Granulocyte Percent A 0.9 % (0-0.5); Lymphocytes Absolute Auto 0.61 K/mm3 (0.9-3.2); Lymphocytes Percent Auto 9.5 % (18.3-44.2); Mean Corpuscular HGB Conc 31.7 g/dl (32-36); Mean Corpuscular Hemoglobin 26.7 pg (26-34); Mean Corpuscular Volume 84.3 fl (80-100); Mean Platelet Volume 8.6 fl (7.4-10.4); Monocytes Absolute Auto 0.7 K/mm3 (0.1-0.6); Monocytes Percent Auto 10.7 % (2.6-8.5); Neutrophils Percent Auto 77.3 % (45.5-73.1); Platelet Count Result 351 k/mm3 (150-375); Red Blood Count 3.56 M/mm3 (4.6-6.20); Red Cell Distribution Width 15.8 % (11.5-14.5); White Blood Count 6.4 K/mm3 (4.5-10.0)
[2022-05-02] MEDS: MAGNESIUM OXIDE 400 MG TABLET PO (08:51)
[2022-05-02] MEDS: MULTIVITAMINS /C LUTEIN (CENTRUM SILVER) TABLET *BKC 1 TAB PO (08:51)
[2022-05-02] MEDS: LORATADINE 10 MG TABLET PO (08:51)
[2022-05-02] MEDS: TAMSULOSIN HCL 0.4 MG CAPSULE PO (08:51)
[2022-05-02] MEDS: PANTOPRAZOLE 40 MG TABLET PO (08:51)
[2022-05-02] MEDS: FAMOTIDINE 20 MG TABLET PO ×2 (08:51→20:29)
[2022-05-02] MEDS: POTASSIUM CHLORIDE 10 MEQ TABLET.ER PO (08:51)
[2022-05-02] MEDS: ASPIRIN 81 MG CHEWABLE TABLET PO (08:51)
[2022-05-02 08:52] LABS: Anion Gap 10 mmol/L (8-16); Blood Urea Nitrogen 10 mg/dL (9-20); Calcium 7.5 mg/dL (8.4-10.2); Carbon Dioxide 30 mmol/L (22-30); Chloride 90 mmol/L (98-107); Estimated CRCL calculation 109 ml/min; Estimated Glomerular Filt Rate > 60; Glucose 106 mg/dL (65-110); Potassium 3.7 mmol/L (3.4-5.0); Sodium 130 mmol/L (137-145)
[2022-05-02] MEDS: ENOXAPARIN 40 MG/0.4 ML SYRINGE SUB-Q (08:54)
[2022-05-02] MEDS: INSULIN ASPART (*BKC) 100 UNITS/ML 8 UNITS SUB-Q ×2 (08:55→12:19)
--- NOTE | 2022-05-02 10:59 | PCOTNOTE ---
Attempted to see pt. for occupational therapy evaluation. Pt. currently with speech therapy, unable to be seen at this time.
--- NOTE | 2022-05-02 11:01 | PC.NURSE ---
Call made to [facility]. I had a missed call from Ronny. Ashley, a nurse answered and took update from me to give to him. They would like report to be called when Mikey comes back to the assisted living.
--- NOTE | 2022-05-02 11:18 | PCSTNOTE ---
On 05/02/22, the student, Nicole Birmingham, provided care and completed [facility] documentation on this patient. I have reviewed the student's documentation and agree with the findings.
--- NOTE | 2022-05-02 11:27 | PM.IMPN ---
Progress Note: A&P Assessment and Plan (1) Stroke-like symptoms: Code(s): R29.90 - Unspecified symptoms and signs involving the nervous system Status: Acute Assessment and Plan: resolved. (2) Hypoxia: Code(s): R09.02 - Hypoxemia Status: Acute Assessment and Plan: likely secondary to pneumonia. Continue Levaquin. Otherwise respiratory status is okay this morning. (3) Abnormal chest x-ray: Code(s): R93.89 - Abnormal findings on diagnostic imaging of other specified body structures Status: Acute Assessment and Plan: Will give additional dose of Lasix. 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 Friedman in June 2021. More recent imaging showed enlarging right upper lobe mass and he was referred back to [facility]. (5) Pericardial effusion: Code(s): I31.39 - Other pericardial effusion (noninflammatory) Status: Acute Assessment and Plan: Small circumferential pericardial effusion noted on echocardiogram on 04/25/2022. (6) Chronic anemia: Code(s): D64.9 - Anemia, unspecified Status: Acute Assessment and Plan: Hemoglobin have slowly gone down over the last month or so. Check iron studies as well as B12 and folate. (7) Insulin dependent type 2 diabetes mellitus: Code(s): E11.9 - Type 2 diabetes mellitus without complications; Z79.4 - correction (current) use of insulin Status: Acute Assessment and Plan: Continue basal insulin. Initiate sliding scale insulin, Accu-Cheks, and hypoglycemic protocol. Recent A1c was 9.3%. (8) Difficulty sleeping: Code(s): G47.9 - Sleep disorder, unspecified Status: Acute Assessment and Plan: Patient denies that he is short of breath when trying to sleep at nighttime though that is a possibility given effusions noted on imaging. Melatonin 5 milligrams ordered. Discussed avoiding naps so that he could sleep better at nighttime. Subjective Date/time seen: 05/02/22 11:27 no new complaints Exam Narrative: General: Well-developed elderly gentleman sitting in a chair at the side of the bed in no distress. Weight: 77.2 kilograms. BMI: 22.5. HEENT: Hematoma of the right forehead near the scalp line with surrounding area of ecchymosis down to the right eye. PERRL, EOMI. Sclera anicteric. Oral mucosa moist. Neck: Supple. No bruits. Respiratory: Respirations are nonlabored. Lung sounds are diminished at the bases with faint crackles. Cardiovascular: Regular rate and rhythm with S1-S2. Gastrointestinal: Abdomen is soft, nontender, and nondistended with positive bowel sounds. Skin: Warm and dry. Bruising on the dorsum of the hand with abrasions over the knuckles. Bruising to the right eye and forehead as above. Extremities: No cyanosis or clubbing. He has pitting edema of the lower legs bilaterally up to the knees. No palpable knots or cords. Equivocal Dante sign bilaterally. Neurological: Alert and oriented. Cranial nerves 2-12 are grossly intact though right eyelid may be slightly drooping. Speech is clear. No facial asymmetry. Hand psychology assistant are strong and equal bilaterally as well as foot pushes. No pronator drift. Psychiatric: Pleasant and cooperative with normal mood and affect. Objective Data Vital Signs Vital Signs: Vital Signs - 24 hr 05/01/22 14:00 05/01/22 12:03 05/01/22 21:50 Temperature 97.1 F L 97.6 F Pulse Rate 107 H 92 90 Respiratory Rate 16 22 H Blood Pressure 136/81 148/75 H Pulse Oximetry 96 98 Oxygen Delivery Oxygen Flow Rate 05/01/22 20:00 05/02/22 00:00 05/02/22 04:00 Temperature Pulse Rate 89 84 89 Respiratory Rate Blood Pressure Pulse Oximetry Oxygen Delivery Oxygen Fl
--- NOTE | 2022-05-02 11:35 | PCSTNOTE ---
Completed communication evaluation on this date. No ST services recommended. MD notified.
--- NOTE | 2022-05-02 11:36 | PC.NURSE ---
Dr. Friedman from [facility] called inquiring about pt. I informed him of what we have been up to in regards to care for him. Daughter had called to their office asking for them to have him transferred and admitted to [facility]. At this time MD does not think that will be necessary and that he can be handled outpatient.
[2022-05-02 11:49] LABS: Glucose Point of Care 167 mg/dl (65-105)
[2022-05-02 17:04] LABS: Glucose Point of Care 89 mg/dl (65-105)
[2022-05-02 20:23] LABS: Glucose Point of Care 223 mg/dl (65-105)
[2022-05-02] MEDS: ATORVASTATIN 40 MG TABLET PO (20:29)
[2022-05-02] MEDS: INSULIN GLARGINE (*BKC) 100 UNITS/ML 18 UNITS SUB-Q (20:29)
[2022-05-03] VITALS (11 sets, daily range): BP systolic 107–142; BP diastolic 60–73; PULSE 77–99; RESP 20; TEMP 36.4; O2SAT 87–98
[2022-05-03 07:56] LABS: Glucose Point of Care 181 mg/dl (65-105)
[2022-05-03] MEDS: ASPIRIN 81 MG CHEWABLE TABLET PO (09:22)
[2022-05-03] MEDS: PANTOPRAZOLE 40 MG TABLET PO (09:23)
[2022-05-03] MEDS: MAGNESIUM OXIDE 400 MG TABLET PO (09:23)
[2022-05-03] MEDS: LORATADINE 10 MG TABLET PO (09:23)
[2022-05-03] MEDS: FAMOTIDINE 20 MG TABLET PO (09:23)
[2022-05-03] MEDS: POTASSIUM CHLORIDE 10 MEQ TABLET.ER PO (09:23)
[2022-05-03] MEDS: MULTIVITAMINS /C LUTEIN (CENTRUM SILVER) TABLET *BKC 1 TAB PO (09:23)
[2022-05-03] MEDS: TAMSULOSIN HCL 0.4 MG CAPSULE PO (09:23)
[2022-05-03] MEDS: ENOXAPARIN 40 MG/0.4 ML SYRINGE SUB-Q (09:24)
[2022-05-03] MEDS: INSULIN ASPART (*BKC) 100 UNITS/ML 8 UNITS SUB-Q ×2 (09:27→12:27)
--- NOTE | 2022-05-03 11:00 | PM.DS ---
DS: Admitting Diagnosis Discharge Date May 03, 2022 Admitting Diagnosis pneumonia DS: Discharge Diagnosis Discharge Diagnosis (1) Stroke-like symptoms: Code(s): R29.90 - Unspecified symptoms and signs involving the nervous system Status: Acute Assessment and Plan: resolved. (2) Hypoxia: Code(s): R09.02 - Hypoxemia Status: Acute Assessment and Plan: likely secondary to pneumonia. Continue Levaquin. Otherwise respiratory status is okay this morning. (3) Abnormal chest x-ray: Code(s): R93.89 - Abnormal findings on diagnostic imaging of other specified body structures Status: Acute Assessment and Plan: Will give additional dose of Lasix. 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 Friedman in June 2021. More recent imaging showed enlarging right upper lobe mass and he was referred back to [facility]. (5) Pericardial effusion: Code(s): I31.39 - Other pericardial effusion (noninflammatory) Status: Acute Assessment and Plan: Small circumferential pericardial effusion noted on echocardiogram on 04/25/2022. (6) Chronic anemia: Code(s): D64.9 - Anemia, unspecified Status: Acute Assessment and Plan: Hemoglobin have slowly gone down over the last month or so. Check iron studies as well as B12 and folate. (7) Insulin dependent type 2 diabetes mellitus: Code(s): E11.9 - Type 2 diabetes mellitus without complications; Z79.4 - roasterman (current) use of insulin Status: Acute Assessment and Plan: Continue basal insulin. Initiate sliding scale insulin, Accu-Cheks, and hypoglycemic protocol. Recent A1c was 9.3%. (8) Difficulty sleeping: Code(s): G47.9 - Sleep disorder, unspecified Status: Acute Assessment and Plan: Patient denies that he is short of breath when trying to sleep at nighttime though that is a possibility given effusions noted on imaging. Melatonin 5 milligrams ordered. Discussed avoiding naps so that he could sleep better at nighttime. DS: Summary Hospital Course Hospital Course: Patient is an 82-year-old male who was recently admitted for pneumonia. came back in with some hypoxia shortness of breath. To note patient does have multiple medical problems including lung cancer. Nonetheless patient started on IV antibiotics he did exceptionally well. We will have him evaluated for oxygen on discharge. Patient is a high risk for readmission. Levaquin will be continued for 5 more days. Time Spent with Patient Time attestation: Total time spent providing and/or coordinating discharge services: Exam Narrative: General: Well-developed elderly gentleman sitting in a chair at the side of the bed in no distress. Weight: 77.2 kilograms. BMI: 22.5. HEENT: Hematoma of the right forehead near the scalp line with surrounding area of ecchymosis down to the right eye. PERRL, EOMI. Sclera anicteric. Oral mucosa moist. Neck: Supple. No bruits. Respiratory: Respirations are nonlabored. Lung sounds are diminished at the bases with faint crackles. Cardiovascular: Regular rate and rhythm with S1-S2. Gastrointestinal: Abdomen is soft, nontender, and nondistended with positive bowel sounds. Skin: Warm and dry. Bruising on the dorsum of the hand with abrasions over the knuckles. Bruising to the right eye and forehead as above. Extremities: No cyanosis or clubbing. He has pitting edema of the lower legs bilaterally up to the knees. No palpable knots or cords. Equivocal Dante sign bilaterally. Neurological: Alert and oriented. Cranial nerves 2-12 are grossly intact though right eyelid may be slightly drooping. Speech is clear. No facial asymmetry. Hand pacu rn are stron
[2022-05-03 11:55] LABS: Glucose Point of Care 189 mg/dl (65-105)
[2022-05-03 12:18] LABS: EDCOVIDSCREEN Negative (Negative)
--- NOTE | 2022-05-03 12:42 | HOMEO2EVAL ---
Evaluation was performed at [facility] Home Oxygen Evaluation RC: Home Oxygen (O2) Evaluation Start: 05/03/22 10:59 Freq: ONCE Status: Active Protocol: RPE Activity Type Activity Date Activity User E-sign Co-sign Detail Recorded Client Recorded Date Recorded By Document 05/03/22 12:15 AMIE [email or web address] 05/03/22 12:42 AMIE Document 05/03/22 12:20 AMIE [email or web address] 05/03/22 12:42 AMIE Document 05/03/22 12:21 AMIE [email or web address] 05/03/22 12:42 AMIE Document 05/03/22 12:23 AMIE [email or web address] 05/03/22 12:42 AMIE Document 05/03/22 12:30 AMIE [email or web address] 05/03/22 12:42 AMIE 05/03/22 05/03/22 05/03/22 12:15 12:20 12:21 Home O2 Evaluation [Oxygen] -Test Phase Resting Exercise Exercise -Oxygen Delivery Room Air Room Air Nasal Cannula -Oxygen Flow Rate (L/min) 1 [Pulse Oximetry] -Pulse Oximetry (90-100 %) 98 87 L 87 L [Pulse Rate] -Pulse Rate (60-100 beats/min) 77 96 [Evaluation] -Activity Tolerance [Comments] -Home Oxygen Evaluation Comments [Charges] -Treatment Charges O2 Evaluation - Inpatient 05/03/22 05/03/22 12:23 12:30 Home O2 Evaluation [Oxygen] -Test Phase Exercise Resting -Oxygen Delivery Nasal Cannula Room Air -Oxygen Flow Rate (L/min) 2 [Pulse Oximetry] -Pulse Oximetry (90-100 %) 90 95 [Pulse Rate] -Pulse Rate (60-100 beats/min) 99 82 [Evaluation] -Activity Tolerance Fair [Comments] -Home Oxygen Evaluation Comments PT REQUIRES 2 L WITH ACTIVITY. [Charges] -Treatment Charges
--- NOTE | 2022-05-03 16:04 | PCRCNOTE ---
HOME O2 SET UP WITH [facility]. TANK GIVEN TO PATIENTS DAUGHTER. 2L WITH ACTIVITY
== END 2022-05-03 15:37 | DRG 194 ==
LOC: ANHED 10:01 → ANH3MEDSUR 10:21
PROVIDERS: Emergency Medicine; Physician Assistant; Admitting Provider Family Medicine; Emergency Provider General Practice; PCP Nurse Practitioner Family; Visit Provider Chiropractor
DX: J18.9 Pneumonia, unspecified organism (principal); C34.91 Malignant neoplasm of unspecified part of right bronchus or lung; K51.90 Ulcerative colitis, unspecified, without complications; I31.39 Other pericardial effusion (noninflammatory); R09.02 Hypoxemia; I10 Essential (primary) hypertension; I25.2 Old myocardial infarction; D64.9 Anemia, unspecified; E11.51 Type 2 diabetes mellitus with diabetic peripheral angiopathy without gangrene; E78.5 Hyperlipidemia, unspecified; M81.0 Age-related osteoporosis without current pathological fracture; G47.9 Sleep disorder, unspecified; N40.0 Benign prostatic hyperplasia without lower urinary tract symptoms; R29.90 Unspecified symptoms and signs involving the nervous system; R29.700 NIHSS score 0; Z20.822 Contact with and (suspected) exposure to COVID-19; Z95.820 Peripheral vascular angioplasty status with implants and grafts; Z87.891 Personal history of nicotine dependence; Z79.4 Long term (current) use of insulin
CPT/HCPCS: 36415; 36600; 70450; 71045; 80048; 80053; 82375; 82607; 82728; 82746; 82805; 82948; 83050; 83540; 83550; 83605; 83735; 83880; 84443; 85025; 85610; 85730; 87040; 87426; 92523; 93005; 93970; 94618; 94640; 96366; 96372; 96375; 97110; 97116; 97161; 97165; 99285; A9270; C9803; G0378; J1650; J1815; J1940; J1956; U0003; U0005